=== PATIENT | female | born 1950 | race Hispanic/Latino ===

== ENCOUNTER 2019-03-06 08:01 | Emergency (ER) | payer OTHER ==
--- OUTSIDE RECORDS SUMMARY | 2019-03-06 08:03 | XMS REPORT ---
:1950 [facility] [address]io [address] Martinez [address] [place] [id number] Care Team Providers Name Role Phone Unavailable Unavailable Unavailable Problems This patient has no known problems. Allergies, Adverse Reactions, Alerts This patient has no known allergies or adverse reactions. Medications This patient has no known medications.
[2019-03-06] MEDS ORDERED: FAMOTIDINE 20 MG/2 ML VIAL IV ONE (09:37)
[2019-03-06] MEDS ORDERED: ONDANSETRON 4 MG/2 ML VIAL ONE (09:37)
[2019-03-06] MEDS ORDERED: NA CHLORIDE 0.9% 1,000 ML ONE (09:37)
[2019-03-06] MEDS ORDERED: MORPHINE 2 MG/ML SYR ONE (09:37)
[2019-03-06 09:42] LABS: Absolute Lymphocytes (CBC) 1.4 K/uL (0.7-4.9); Absolute Monocytes 0.6 K/uL (0.1-1.3); Absolute Neutrophil 3.6 K/uL (1.8-8.0); Basophils % 0.6 % (0-1.3); Eosinophils % 1.3 % (0-4.4); Hematocrit 43.2 % (36.0-45.0); Lymphocytes % 24.2 % (15.3-44.8); MPV 9.2 fL (7.6-11.3); Monocytes % 9.9 % (3.3-12.3); RBC Red Blood Cell Count 4.58 M/uL (3.86-4.86)
[2019-03-06 09:44] LABS: Protime INR 0.93
--- NOTE | 2019-03-06 09:53 | EKG ---
Test Date: 2019-03-06 Test Time: 09:27:54 Assistant Purchasing Manager: MANSI MEASUREMENT RESULTS: Intervals: Rate: 69 IA: 136 QRSD: 82 QT: 400 QTc: 428 [place]: P: 34 IA: 136 QRS: 52 T: 50 INTERPRETIVE STATEMENTS: Normal sinus rhythm with sinus arrhythmia Normal ECG Compared to ECG 07/13/2005 16:57:00 No significant changes Electronically Signed On 03-06-19 09:52:19 CDT by Freddy Negron
[2019-03-06 10:03] LABS: ALT/SGPT 21 U/L (12-78); AST/SGOT 14 U/L (15-37); Albumin 4.1 g/dL (3.4-5.0); Alkaline Phosphatase 90 U/L (45-117); BUN Blood Urea Nitrogen 20 mg/dL (7-18); Bicarbonate 25 mmol/L (21-32); Bilirubin Direct 0.1 mg/dL (0-0.2); Bilirubin Total 0.5 mg/dL (0.2-1.0); Glucose Level 102 mg/dL (74-106); Lipase 60 U/L (73-393); Magnesium 2.3 mg/dL (1.8-2.4); NT PRO-BNP 149 pg/mL (<125); Potassium 3.8 mmol/L (3.5-5.1); Protein, Total 6.9 g/dL (6.4-8.2); Sodium Level 144 mmol/L (136-145); Troponin (Emerg Dept Use Only) < 0.02 ng/mL (0.0-0.045)
--- NOTE | 2019-03-06 10:27 | RAD REPORT ---
EXAM DESCRIPTION: Penelope Single View03/06/2019 9:58 am CLINICAL HISTORY: cough COMPARISON: none FINDINGS: The lungs appear clear of acute infiltrate. The heart is normal size IMPRESSION: No acute abnormalities displayed
[2019-03-06 11:12] LABS: Urine Blood NEGATIVE (NEG); Urine Glucose NEGATIVE (NEG); Urine Protein NEGATIVE (NEG); Urine pH 6.5 (5.0-7.0)
--- NOTE | 2019-03-06 11:38 | RAD REPORT ---
EXAM DESCRIPTION: CT - Abdomen Pelvis W Contrast - 03/06/2019 11:18 am CLINICAL HISTORY: Abdominal pain. Left flank pain COMPARISON: None. TECHNIQUE: Computed axial tomography of the abdomen and pelvis was obtained. 100 cc Isovue-300 is ad ministered intravenously. Oral contrast was given. All CT scans are performed using dose optimization technique as appropriate and may include automated exposure control or mA/KV adjustment according to patient size. FINDINGS: The liver, spleen, pancreas, and adrenals appear unremarkable. 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 The appendix is normal caliber. There is no evidence of diverticulitis A 5 centimeter soft tissue structure right lower pelvis Marked anterior subluxation L5 on S1 with obliteration of the disc space. L5 spondylolysis IMPRESSION: 5 centimeter soft tissue structure right lower pelvis almost certainly represents normal uterus. If the patient has had hysterectomy then this would represent a mass and ultrasound would be recommended. Small umbilical hernia Marked anterior subluxation L5 on S1 with obliteration of the disc space. L5 spondylolysis
--- NOTE | 2019-03-06 13:05 | EDPHYS ---
Physician Documentation [facility] Name: Kelley Zapien Age: 68 yrs Sex: Female : 1950 Arrival Date: 03/06/2019 Time: 08:06 Bed 16 Private MD: ED Physician Oleg Martinez HPI: 03/06 09:15 This 68 yrs old Female presents to ER via Ambulatory with complaints of vega Abdominal Pain. 09:13 The patient presents with abdominal pain in the left upper quadrant. Onset: The vega symptoms/episode began/occurred yesterday. The symptoms do not radiate. Associated signs and symptoms: none. The symptoms are described as steady. Modifying factors: The symptoms are alleviated by remaining still, the symptoms are aggravated by movement, pressure, walking. Severity of pain: At its worst the pain was mild moderate in the emergency department the pain is unchanged. The patient has not experienced similar symptoms in the past. Historical: - Allergies: 08:46 No Known Allergies; iw - Home Meds: 08:46 lisinopril 10 mg Oral tab 1 tab once daily [Active]; Dexilant 30 mg oral CpDB 1 cap iw once daily [Active]; - PMHx: 08:46 one kidney; iw - Immunization history:: Adult Immunizations not up to date. - Social history:: Smoking status: Patient/guardian denies using tobacco. - Ebola Screening: : Patient negative for fever greater than or equal to 101.5 degrees Fahrenheit, and additional compatible Ebola Virus Disease symptoms Patient denies exposure to infectious person Patient denies travel to an Ebola-affected area in the 21 days before illness onset No symptoms or risks identified at this time. - Family history:: not pertinent. ROS: 09:13 Constitutional: Negative for fever, chills, and weight loss, Eyes: Negative for injury, vega pain, redness, and discharge, ENT: Negative for injury, pain, and discharge, Neck: Negative for injury, pain, and swelling, Cardiovascular: Negative for chest pain, palpitations, and edema, Respiratory: Negative for shortness of breath, cough, wheezing, and pleuritic chest pain, Back: Negative for injury and pain, : Negative for injury, bleeding, discharge, and swelling, MS/Extremity: Negative for injury and deformity, Skin: Negative for injury, rash, and discoloration, Neuro: Negative for headache, weakness, numbness, tingling, and seizure, Psych: Negative for depression, anxiety, suicide ideation, homicidal ideation, and hallucinations, Allergy/Immunology: Negative for hives, rash, and allergies, Endocrine: Negative for neck swelling, polydipsia, polyuria, polyphagia, and marked weight changes, Hematologic/Lymphatic: Negative for swollen nodes, abnormal bleeding, and unusual bruising. 09:13 Abdomen/GI: Positive for abdominal pain. Exam: 09:13 Constitutional: This is a well developed, well nourished patient who is awake, alert, vega and in no acute distress. Head/Face: Normocephalic, atraumatic. Eyes: Pupils equal round and reactive to light, extra-ocular motions intact. Lids and lashes normal. Conjunctiva and sclera are non-icteric and not injected. Cornea within normal limits. Periorbital areas with no swelling, redness, or edema. ENT: Nares patent. No nasal discharge, no septal abnormalities noted. Tympanic membranes are normal and external auditory canals are clear. Oropharynx with no redness, swelling, or masses, exudates, or evidence of obstruction, uvula midline. Mucous membranes moist. Neck: Trachea midline, no thyromegaly or masses palpated, and no cervical lymphadenopathy. Supple, full range of motion without nuchal rigidity, or vertebral point tenderness. No Meningismus. Chest/axilla: Normal chest wall appearance and motion. Nontender with no deformity. No lesions are appreciated. Cardiovascular: Regular rate and rhythm with a normal S1 and S2. No gallops, murmurs, or rubs. Normal PMI, no JVD. No pulse deficits. Respiratory: Lungs have equal breath sounds bilaterally, clear to auscultation and percussion. No rales, rhonchi or wheezes noted. No increased work of breathing, no retractions or nasal flaring. Back: No spinal tenderness. No costovertebral tenderness. Full range of motion. Female : Normal external genitalia. Skin: Warm, dry with normal turgor. Normal color with no rashes, no lesions, and no evidence of cellulitis. MS/ Extremity: Pulses equal, no cyanosis. Neurovascular intact. Full, normal range of motion. Neuro: Awake and alert, GCS 15, oriented to person, place, time, and situation. Cranial nerves II-XII grossly intact. Motor strength 5/5 in all extremities. Sensory grossly intact. Cerebellar exam normal. Normal gait. Psych: Awake, alert, with orientation to person, place and time. Behavior, mood, and affect are within normal limits. 09:13 Abdomen/GI: Inspection: abdomen appears normal, Bowel sounds: normal, Palpation: mild abdominal tenderness, moderate abdominal tenderness, in the left upper quadrant, Liver: no appreciated palpable abnormalities, Hernia: not appreciated. Vital Signs: 08:46 BP 112 / 84; Pulse 67; Resp 16; Temp 97.9(TE); Pulse Ox 99% on R/A; Weight 57.61 kg; iw Height 4 ft. 11 in. (149.86 cm); Pain 2/10; 09:44 BP 120 / 85; Pulse 61; Resp 18; Pulse Ox 100% on R/A; hj 10:29 BP 100 / 66; Pulse 60; Resp 18; Pulse Ox 100% on R/A; hj 10:57 BP 124 / 78; Pulse 71; Resp 18; Pulse Ox 96% on R/A; hj 12:10 BP 117 / 72; Pulse 58; Resp 18; Pulse Ox 96% on R/A; hj 08:46 Body Mass Index 25.65 (57.61 kg, 149.86 cm) iw MDM: 08:[address] [facility] 09:15 Data reviewed: vital signs, nurses notes, lab test result(s), EKG, radiologic studies, [facility] CT scan, plain films. 03/06 09:11 Order name: Basic Metabolic Panel [facility] 03/06 09:11 Order name: CBC with Diff [facility] 03/06 09:11 Order name: LFT's [facility] 03/06 09:11 Order name: Magnesium [facility] 03/06 09:11 Order name: NT PRO-BNP [facility] 03/06 09:11 Order name: PT-INR [facility] 03/06 09:11 Order name: Troponin (emerg Dept Use Only); Complete Time: 10:27 [facility] 03/06 09:11 Order name: Lipase; Complete Time: 10:27 [facility] 03/06 09:11 Order name: Urine Culture [facility] 03/06 09:14 Order name: Basic Metabolic Panel; Complete Time: 10:27 [facility] 03/06 09:14 Order name: CBC with Automated Diff; Complete Time: 09:48 [facility] 03/06 09:14 Order name: Liver (Hepatic) Function; Complete Time: 10:27 [facility] 03/06 09:14 Order name: Magnesium; Complete Time: 10:27 [facility] 03/06 09:14 Order name: NT PRO-BNP; Complete Time: 10:27 [facility] 03/06 09:11 Order name: XRAY Chest (1 view) [facility] 03/06 09:11 Order name: EKG; Complete Time: 09:15 [facility] 03/06 09:11 Order name: Cardiac monitoring; Complete Time: 09:12 [facility] 03/06 09:11 Order name: EKG - Nurse/Tech; Complete Time: 09:30 [facility] 03/06 09:11 Order name: IV Saline Lock; Complete Time: 09:30 [facility] 03/06 09:11 Order name: Labs collected and sent; Complete Time: 09:30 [facility] 03/06 09:11 Order name: O2 Per Protocol; Complete Time: 09:12 [facility] 03/06 09:11 Order name: CT Abd/Pelvis - PO and IV Contrast [facility] 03/06 09:14 Order name: Protime (+INR); Complete Time: 09:48 [facility] 03/06 10:44 Order name: Urine Dipstick--Ancillary (enter results) 03/06 09:11 Order name: O2 Sat Monitoring; Complete Time: 09:12 [facility] 03/06 09:11 Order name: Urine Dipstick-Ancillary (obtain specimen); Complete Time: 10:39 [facility] Administered Medications: 09:29 Drug: morphine 2 mg Route: IVP; Site: left antecubital; hj 09:46 Follow up: Response: No adverse reaction; Pain is decreased hj 09:29 Drug: Pepcid 20 mg Route: IVP; Site: left antecubital; hj 09:46 Follow up: Response: No adverse reaction hj 09:29 Drug: Zofran 4 mg Route: IVP; Site: left antecubital; hj 09:46 Follow up: Response: No adverse reaction; Nausea is decreased hj 09:30 Drug: NS 0.9% 500 ml Route: IV; Rate: bolus; Site: left antecubital; hj 12:30 Follow up: IV Status: Completed infusion; IV Intake: 500ml hj 09:30 Drug: NS 0.9% 1000 ml Route: IV; Rate: 125 ml/hr; Site: left antecubital; hj 12:11 Follow up: IV Status: Order to discontinue infusion; IV Intake: 700ml 12:09 Not Given (Patient Refused): morphine 2 mg IVP once hj Disposition: 03/06/19 12:07 Discharged to Home. Impression: Abdominal tenderness, Subluxation of L4/L5 lumbar vertebra, Spondylolysis, lumbar region - L5, Low back pain. - Condition is Stable. - Discharge Instructions: Abdominal Pain, Adult, Back Pain, Adult, Musculoskeletal Pain, Abdominal Pain, Adult, [id number]. - Prescriptions for Bentyl 20 mg Oral Tablet - take 1 tablet by ORAL route every 6 hours As needed; 20 tablet. Pepcid 20 mg Oral Tablet - take 1 tablet by ORAL route every 12 hours for 10 days; 20 tablet. Zofran 4 mg Oral Tablet - take 1 tablet by ORAL route every 12 hours As needed; 20 tablet. Tylenol- Codeine #3 300-30 mg Oral Tablet - take 2 tablets by ORAL route every 6 hours As needed; 20 tablet. - Medication Reconciliation Form, Thank You Letter, Antibiotic Education, Prescription Opioid Use form. - Follow up: Private Physician; When: 2 - 3 days; Reason: Recheck today's complaints, Continuance of care, Re-evaluation by your physician. Follow up: Destin Smith; When: 2 - 3 days; Reason: Recheck today's complaints, Continuance of care, Re-evaluation by your physician. Follow up: Gregory Jean MD; When: 2 - 3 days; Reason: Recheck today's complaints, Re-evaluation by your physician. - Problem is new. - Symptoms have improved. Signatures: Dispatcher [employer] EDAL Oleg Martinez MD MD cha Williams, Irene, RN RN Angus Ng RN RN Corrections: (The following items were deleted from the chart) 12:07 12:07 03/06/2019 12:07 Discharged to Home. Impression: Abdominal tenderness; vega Subluxation of L4/L5 lumbar vertebra; Spondylolysis, lumbar region - L5; Low back pain. Condition is Stable. Discharge Instructions: Abdominal Pain, Adult, Abdominal Pain, Adult, [id number], Back Pain, Adult, Musculoskeletal Pain. Prescriptions for Bentyl 20 mg Oral Tablet - take 1 tablet by ORAL route every 6 hours As needed; 20 tablet, Pepcid 20 mg Oral Tablet - take 1 tablet by ORAL route every 12 hours for 10 days; 20 tablet, Zofran 4 mg Oral Tablet - take 1 tablet by ORAL route every 12 hours As needed; 20 tablet. and Forms are Medication Reconciliation Form, Thank You Letter, Antibiotic Education, Prescription Opioid Use. Follow up: Private Physician; When: 2 - 3 days; Reason: Recheck today's complaints, Continuance of care, Re-evaluation by your physician. Follow up: Destin Smith; When: 2 - 3 days; Reason: Recheck today's complaints, Continuance of care, Re-evaluation by your physician. Problem is new. Symptoms have improved. [facility] 12:30 12:07 03/06/2019 12:07 Discharged to Home. Impression: Abdominal tenderness; hj Subluxation of L4/L5 lumbar vertebra; Spondylolysis, lumbar region - L5; Low back pain. Condition is Stable. Discharge Instructions: Abdominal Pain, Adult, Abdominal Pain, Adult, [id number], Back Pain, Adult, Musculoskeletal Pain. Prescriptions for Bentyl 20 mg Oral Tablet - take 1 tablet by ORAL route every 6 hours As needed; 20 tablet, Pepcid 20 mg Oral Tablet - take 1 tablet by ORAL route every 12 hours for 10 days; 20 tablet, Zofran 4 mg Oral Tablet - take 1 tablet by ORAL route every 12 hours As needed; 20 tablet. and Forms are Medication Reconciliation Form, Thank You Letter, Antibiotic Education, Prescription Opioid Use. Follow up: Private Physician; When: 2 - 3 days; Reason: Recheck today's complaints, Continuance of care, Re-evaluation by your physician. Follow up: Destin Smith; When: 2 - 3 days; Reason: Recheck today's complaints, Continuance of care, Re-evaluation by your physician. Follow up: Gregory Jean; When: 2 - 3 days; Reason: Recheck today's complaints, Re-evaluation by your physician. Problem is new. Symptoms have improved. [facility]
--- NOTE | 2019-03-06 13:05 | ER ---
Nurse's Notes [facility] Name: Kelley Zapien Age: 68 yrs Sex: Female : 1950 Arrival Date: 03/06/2019 Time: 08:06 Bed 16 Private MD: Diagnosis: Abdominal tenderness;Subluxation of L4/L5 lumbar vertebra;Spondylolysis, lumbar region-L5;Low back pain Presentation: 03/06 08:42 Presenting complaint: Patient states: has a hernia on left side, was lifting a big pot iw of menudo on Wednesday and felt pain to LUQ, pain radiates to left flank area, described as burning pain. Transition of care: patient was not received from another setting of care. Onset of symptoms was March 04, 2019. Risk Assessment: Do you want to hurt yourself or someone else? Patient reports no desire to harm self or others. Initial Sepsis Screen: Does the patient meet any 2 criteria? No. Patient's initial sepsis screen is negative. Does the patient have a suspected source of infection? No. Patient's initial sepsis screen is negative. Care prior to arrival: None. 08:42 Method Of Arrival: Ambulatory iw 08:42 Acuity: CHARLIE 3 iw Triage Assessment: 08:46 General: Appears in no apparent distress. uncomfortable, Behavior is calm, cooperative, hj appropriate for age. Pain: Complains of pain in abdomen. GI: Reports lower abdominal pain, upper abdominal pain. Historical: - Allergies: 08:46 No Known Allergies; iw - Home Meds: 08:46 lisinopril 10 mg Oral tab 1 tab once daily [Active]; Dexilant 30 mg oral CpDB 1 cap iw once daily [Active]; - PMHx: 08:46 one kidney; iw - Immunization history:: Adult Immunizations not up to date. - Social history:: Smoking status: Patient/guardian denies using tobacco. - Ebola Screening: : Patient negative for fever greater than or equal to 101.5 degrees Fahrenheit, and additional compatible Ebola Virus Disease symptoms Patient denies exposure to infectious person Patient denies travel to an Ebola-affected area in the 21 days before illness onset No symptoms or risks identified at this time. - Family history:: not pertinent. Screenin:46 Abuse screen: Denies threats or abuse. Denies injuries from another. Nutritional hj screening: No deficits noted. Tuberculosis screening: No symptoms or risk factors identified. Fall Risk None identified. Assessment: 08:45 GI: Bowel sounds present X 4 quads. Abd is soft Abdomen is tender to palpation. hj 08:45 General: Appears in no apparent distress. uncomfortable, Behavior is calm, cooperative, hj appropriate for age. Pain: Complains of pain in abdomen. Neuro: Level of Consciousness is awake, alert, obeys commands, Oriented to person, place, time, situation, Appropriate for age. Cardiovascular: Denies chest pain, Pulses. Respiratory: Airway is patent Respiratory effort is even, unlabored, Respiratory pattern is regular, symmetrical. : No signs and/or symptoms were reported regarding the genitourinary system. EENT: No signs and/or symptoms were reported regarding the EENT system. Derm: No signs and/or symptoms reported regarding the dermatologic system. Musculoskeletal: Reports pain in abdomen. 09:15 Reassessment: Patient and/or family updated on plan of care and expected duration. Pain hj level reassessed. Patient is alert, oriented x 3, equal unlabored respirations, skin warm/dry/pink. finished oral contrast; left voice mail to imaging;. 10:28 Reassessment: Patient and/or family updated on plan of care and expected duration. Pain hj level reassessed. Patient is alert, oriented x 3, equal unlabored respirations, skin warm/dry/pink. Patient states feeling better. Patient states symptoms have improved. 11:10 Reassessment: wheeled to CT;. hj 12:10 Reassessment: Patient and/or family updated on plan of care and expected duration. Pain hj level reassessed. Patient is alert, oriented x 3, equal unlabored respirations, skin warm/dry/pink. for D/C;. Vital Signs: 08:46 BP 112 / 84; Pulse 67; Resp 16; Temp 97.9(TE); Pulse Ox 99% on R/A; Weight 57.61 kg; iw Height 4 ft. 11 in. (149.86 cm); Pain 11/06; 09:44 BP 120 / 85; Pulse 61; Resp 18; Pulse Ox 100% on R/A; hj 10:29 BP 100 / 66; Pulse 60; Resp 18; Pulse Ox 100% on R/A; hj 10:57 BP 124 / 78; Pulse 71; Resp 18; Pulse Ox 96% on R/A; hj 12:10 BP 117 / 72; Pulse 58; Resp 18; Pulse Ox 96% on R/A; hj 08:46 Body Mass Index 25.65 (57.61 kg, 149.86 cm) ED Course: 08:06 Patient arrived in ED. tw3 08:35 Angus Ng, RN is Primary Nurse. hj 08:40 Oleg Martinez MD is Attending Physician. vega 08:45 Triage completed. iw 08:45 Patient has correct armband on for positive identification. Bed in low position. Call hj light in reach. Side rails up X 1. 08:46 Arm band placed on. iw 09:20 Initial lab(s) drawn, by me, sent to lab. jb1 09:38 Inserted saline lock: 22 gauge in left antecubital area, using aseptic technique. Blood jb1 collected. 09:57 X-ray completed. Portable x-ray completed in exam room. Patient tolerated procedure jb2 well. 09:59 XRAY Chest (1 view) In Process Unspecified. EDMS 10:43 Urine collected: clean catch specimen, clear, jae colored. jb1 10:52 EKG done, by boiler control technician. reviewed by Oleg Martinez MD. at1 12:06 Destin Smith MD is Referral Physician. vega 12:07 Gregory Jean MD is Referral Physician. vega 12:29 No provider procedures requiring assistance completed. IV discontinued, intact, hj bleeding controlled, No redness/swelling at site. Pressure dressing applied. 13:05 CT Abd/Pelvis - PO and IV Contrast In Process Unspecified. EDMS Administered Medications: 09:29 Drug: morphine 2 mg Route: IVP; Site: left antecubital; hj 09:46 Follow up: Response: No adverse reaction; Pain is decreased hj 09:29 Drug: Pepcid 20 mg Route: IVP; Site: left antecubital; hj 09:46 Follow up: Response: No adverse reaction hj 09:29 Drug: Zofran 4 mg Route: IVP; Site: left antecubital; hj 09:46 Follow up: Response: No adverse reaction; Nausea is decreased hj 09:30 Drug: NS 0.9% 500 ml Route: IV; Rate: bolus; Site: left antecubital; hj 12:30 Follow up: IV Status: Completed infusion; IV Intake: 500ml 09:30 Drug: NS 0.9% 1000 ml Route: IV; Rate: 125 ml/hr; Site: left antecubital; hj 12:11 Follow up: IV Status: Order to discontinue infusion; IV Intake: 700ml hj 12: Not Given (Patient Refused): morphine 2 mg IVP once hj Intake: 12:11 IV: 700ml; Total: 700ml. hj 12:30 IV: 500ml; Total: 1200ml. Outcome: 12:07 Discharge ordered by . vega 12: Discharged to home ambulatory. 12: Condition: stable 12:29 Discharge instructions given to patient, Instructed on discharge instructions, follow up and referral plans. no driving heavy equipment, Demonstrated understanding of instructions, follow-up care, medications, Prescriptions given X 4. 12:30 Patient left the ED. Signatures: Dispatcher [employer] EDMS [place] Nichole jb1 Oleg Martinez MD MD cha Buechter, Jesse jb2 Naima Galdamez, RN RN Gabriela Luque, yeast culture developer EKG Tat1 Angus Ng RN RN hj Wade, Tia tw3
== END 2019-03-06 12:30 | disposition home or self-care (01) ==
LOC: ER 08:01
DX: S33.140A Subluxation of L4/L5 lumbar vertebra, initial encounter (principal); M43.06 Spondylolysis, lumbar region; M54.5 Low back pain
CPT/HCPCS: 96361; 93005; 87088; 85025; 87086; 80048; 36415; 83735; 85610; 80076; 81003; 84484; 83690; 83880; 74177; 71045; 96375; 96374; 99284; Q9967; J2270; J7030; J2405

== ENCOUNTER 2019-06-18 21:55 | Emergency (ER) | payer OTHER ==
--- OUTSIDE RECORDS SUMMARY | 2019-06-18 21:57 | XMS REPORT | Summary of Care ---
:1950 Author Organization [facility] Address [address] [place] [address] Care Team Providers Name Role Phone Unknown, Attending Unavailable Unavailable Joe Tellez MD Primary Care Provider Reason for Referral Radiology Services (Routine) Status Reason Specialty Diagnoses / Referred By Referred To Procedures Contact Contact Closed Diagnostic Diagnoses Screening breast examination Marleny Greer, Radiology Procedures BI SCREENING MAMMOGRAM BILATERAL PA-C [address] [phone] Radiology Services (Routine) Status Reason Specialty Diagnoses / Referred By Referred To Procedures Contact Contact Closed Diagnostic Diagnoses Screening breast examination Marleny Greer, Radiology Procedures BI SCREENING MAMMOGRAM BILATERAL PA-C [address] [phone] Reason for Visit Radiology Services (Routine) Status Reason Specialty Diagnoses / Referred By Referred To Procedures Contact Contact Closed Diagnostic Diagnoses Screening breast examination Marleny Greer, Radiology Procedures BI SCREENING MAMMOGRAM BILATERAL PA-C [address] [phone] Encounter Details Date Type Department Care Team Description 05/16/2019 Hospital Encounter [facility] Marleny Greer, Vianey Aguilar Breast Imaging PA-C [address] [phone] [address] [phone] [phone] Allergies No Known Allergiesdocumented as of this encounter (statuses as of 05/17/2019) Medications Medication Sig Dispensed Refills Start Date End Date Status pantoprazole 40 mg EC Take 40 mg by 0 Active tablet mouth daily. lisinopril 10 mg Take 1 tablet 90 tablet 2 03/16/2019 Active tabletIndications: by mouth daily. Essential hypertension busPIRone 10 mg Take 1 tablet 180 tablet 2 03/16/2019 Active tabletIndications: by mouth 2 Anxiety (two) times daily. triamcinolone 0.5 % Apply to 30 g 1 03/16/2019 Active creamIndications: area(s) 3 Rash (three) times daily. Blood Pressure Use as 1 Kit 0 05/09/2019 Active Monitor directed; KitIndications: ICD-10 code I10 Essential hypertension Nitrofurantoin&Nit. Take 1 capsule 14 capsule 0 05/09/2019 05/16/2019 Macrocryst 100 mg by mouth 2 capsuleIndications: (two) times Dysuria, Urgency of daily for 7 micturition, Left days. flank pain documented as of this encounter (statuses as of 05/17/2019) Active Problems Problem Noted Date Atopic dermatitis 03/19/2019 Osteoporosis 06/20/2018 Spondylosis, lumbosacral 04/27/2018 Low back pain radiating to lower extremity 04/27/2018 Spondylolisthesis at L5-S1 level 04/27/2018 Spondylolysis of lumbar region 04/27/2018 Pelvic pain 04/27/2018 Fluid in endometrial cavity 04/27/2018 Tricompartment osteoarthritis of right knee 01/24/2018 Chronic pain of right knee 01/24/2018 Hypercholesterolemia 01/17/2018 Left sided chest pain 01/10/2018 Breast pain, left 01/10/2018 Unilateral congenital absence of kidney 05/03/2015 Blind left eye Hypertension Prediabetes documented as of this encounter (statuses as of 05/17/2019) Resolved Problems Problem Noted Date Resolved Date Anxiety and depression 05/03/2015 01/10/2018 Abnormality of gait 06/02/2006 01/10/2018 Chest pain 06/02/2006 05/03/2015 Overview: ICD10 Diagnosis Term [employer] Utility documented as of this encounter (statuses as of 05/17/2019) Immunizations Name Administration Dates Next Due Influenza Virus Vaccine 10/14/2007 Pneumococcal 13 Conjugate, PCV13 (Prevnar 13) 06/09/2018 Tdap 05/02/2015 documented as of this encounter Social History Tobacco Use Types Packs/Day Years Used Date Light Tobacco Smoker Smokeless Tobacco: Never Used Alcohol Use Drinks/Week oz/Week Comments No 0 Standard drinks or equivalent 0.0 Sex Assigned at Date Recorded Not on file Job Start Date Occupation Industry Not on file Not on file Not on file Travel History Travel Start Travel End No recent travel history available. documented as of this encounter Last Filed Vital Signs Not on filedocumented in this encounter Plan of Treatment Date Type Specialty Care Team Description 03/25/2020 Office Visit Obstetrics & Gynecology Marleny Greer PA-C [address] [place] [phone] Health Maintenance Due Date Last Done Comments Zoster Recombinant Vaccine (SHINGRIX) (1 2001 of 2) Medicare Wellness Visit 2016 MAMMOGRAM 01/19/2019 01/19/2018, 05/14/2015 INFLUENZA VACCINE (#1) 2019 10/14/2007 PNEUMOCOCCAL VACCINES 65+ (2 of 2 - 06/09/2019 06/09/2018 PPSV23) LUNG CANCER SCREEN: Recommended for age 0906/16/2019 06/16/2018 55-80 with 30 + pack year history DTaP,Tdap,and Td Vaccines (2 - Td) 05/02/2025 05/02/2015 COLONOSCOPY 02/19/2028 02/18/2018 HEPATITIS C (HCV) SCREEN Completed 06/09/2018 Osteoporosis Screening Completed 06/16/2018 documented as of this encounter Procedures Procedure Name Priority Date/Time Associated Diagnosis Comments BI SCREENING Routine 05/16/2019 8:49 Screening breast Results for this MAMMOGRAM BILATERAL AM CDT examination procedure are in the results section. CONSENT/REFUSAL FOR Routine 05/16/2019 8:14 DIAGNOSIS AND AM CDT TREATMENT CONSENT/REFUSAL FOR Routine 05/16/2019 8:13 DIAGNOSIS AND AM CDT TREATMENT ASSIGNMENT OF Routine 05/16/2019 8:13 BENEFITS AM CDT documented in this encounter Results BI SCREENING MAMMOGRAM BILATERAL (05/16/2019 8:49 AM CDT) Specimen Narrative Performed At Examination: PACS BI SCREENING MAMMOGRAM BILATERAL History: Patient is 68 year old and is seen for:Routine mammogram screening. Hormone history includes other. No relevant surgical history has been documented for this patient. No relevant medical history has been documented for this patient. Computer-aided detection (CAD) utilized. Comparisons: 05/14/2015 DIGITAL MAMMOGRAM, SCREENING (No Change) Findings: The breasts have scattered areas of fibroglandular density. There is no evidence of suspicious masses, calcifications, or other abnormal findings. Impression: No signs of malignancy. Recommendation: Annual mammographic follow-up - Bilateral BI-RADS Category: Both 2 - Benign Performing Organization Address City/State/Zipcode Phone Number PACS documented in this encounter Visit Diagnoses Diagnosis Screening breast examination Other screening breast examination documented in this encounter Insurance Payer Benefit Plan / Subscriber ID Effective Phone Address Type Group Dates [facility] [id number] 2017-Pres Medicare HEALTHCARE - HEALTHCARE ent Adv HMO MANAGED DUAL COMPLETE MEDICARE HMO [facility] MEDICAID OF xxxxxxxxx 2018-Pres [phone] [place] ent [id number] [place] [address] documented as of this encounter
--- OUTSIDE RECORDS SUMMARY | 2019-06-18 21:57 | XMS REPORT | Summary of Care ---
:1950 Author Organization [facility] Address [address] [place] [address] Care Team Providers Name Role Phone Unknown, Attending Unavailable Unavailable Joe Tellez MD Primary Care Provider Reason for Visit Reason Comments Results Encounter Details Date Type Department Care Team Description 05/17/2019 Telephone [facility] Women's Marleny Greer PA-C Results Healthcare- [address], [address] [place] [address] [place] [phone] Allergies No Known Allergiesdocumented as of this encounter (statuses as of 05/17/2019) Medications Medication Sig Dispensed Refills Start Date End Date Status pantoprazole 40 mg EC Take 40 mg by 0 Active tablet mouth daily. lisinopril 10 mg Take 1 tablet by 90 tablet 2 03/16/2019 Active tabletIndications: mouth daily. Essential hypertension busPIRone 10 mg Take 1 tablet by 180 tablet 2 03/16/2019 Active tabletIndications: mouth 2 (two) Anxiety times daily. triamcinolone 0.5 % Apply to 30 g 1 03/16/2019 Active creamIndications: Rash area(s) 3 (three) times daily. Blood Pressure Monitor Use as directed; 1 Kit 0 05/09/2019 Active KitIndications: ICD-10 code I10 Essential hypertension documented as of this encounter (statuses as [...] pain 06/02/2006 05/03/2015 Overview: ICD10 Diagnosis Term [employer] Utility documented as of this encounter (statuses [...] Visit Obstetrics & Gynecology Marleny Greer PA-C [address] [place] [phone] Health Maintenance Due Date Last Done Comments Zoster Recombinant Vaccine (SHINGRIX) 2001 (1 of 2) Medicare Wellness Visit 2016 INFLUENZA VACCINE (#1) 2019 10/14/2007 PNEUMOCOCCAL VACCINES 65+ (2 of 2 - 06/09/2019 06/09/2018 PPSV23) LUNG CANCER SCREEN: Recommended for 06/16/2019 06/16/2018 age 55-80 with 30 + pack year history MAMMOGRAM 05/16/2020 05/16/2019, 01/19/2018, 05/14/2015 DTaP,Tdap,and Td Vaccines (2 - Td) 05/02/2025 05/02/2015 COLONOSCOPY 02/19/2028 02/18/2018 HEPATITIS C (HCV) SCREEN Completed 06/09/2018 Osteoporosis Screening Completed 06/16/2018 documented as of this encounter Results Not on filedocumented in this encounter Insurance Payer Benefit Plan / Subscriber ID Effective Phone Address Type Group Dates [facility] [id number] 2017-Pres Medicare HEALTHCARE - HEALTHCARE ent Adv HMO MANAGED DUAL COMPLETE MEDICARE HMO [facility] MEDICAID OF xxxxxxxxx 2018-Pres [phone] Medicaid [place] ent [id number] [place] [address] documented as of this encounter
--- OUTSIDE RECORDS SUMMARY | 2019-06-18 21:57 | XMS REPORT | Summary of Care ---
:1950 Author Organization [facility] Address [address] [place] [address] Care Team Providers Name Role Phone Unknown, Attending Unavailable Unavailable Joe Tellez MD Primary Care Provider Reason for Visit Reason Comments DYSURIA Pain abdomen, lower back, and legs Urgency Headache Encounter Details Date Type Department Care Team Description 05/09/2019 Office Visit [facility] Family Joe Tellez Dysuria ( Primary Dx); Medicine - Huong Hansen MD Urgency of micturition; [address] [place] [address] [address] [place] [address] Left flank pain; [place], [place] Essential hypertension; [phone] Increased frequency of headaches [phone] Allergies No Known Allergiesdocumented as of this encounter (statuses as of 05/09/2019) Medications Medication Sig Dispensed Refills Start Date [...] creamIndications: Rash area(s) 3 (three) times daily. Nitrofurantoin&Nit. Take 1 capsule 14 capsule 0 05/09/2019 05/16/2019 Active Macrocryst 100 mg by mouth 2 capsuleIndications: (two) times Dysuria, Urgency of daily for 7 micturition, Left days. flank pain Blood Pressure Monitor Use as 1 Kit 0 05/09/2019 Active KitIndications: directed; Essential hypertension ICD-10 code I10 documented as of this encounter (statuses as of 05/09/2019) Active Problems Problem Noted Date Atopic dermatitis [...] as of this encounter (statuses as of 05/09/2019) Resolved Problems Problem Noted Date Resolved Date Anxiety and depression 05/03/2015 01/10/2018 Abnormality of gait 06/02/2006 01/10/2018 Chest pain 06/02/2006 05/03/2015 Overview: ICD10 Diagnosis Term Collateral Clerk Utility documented as of this encounter (statuses as of 05/09/2019) Immunizations Name Administration Dates Next Due Influenza [...] of this encounter Last Filed Vital Signs Vital Sign Reading Time Taken Comments Blood Pressure 109/78 05/09/2019 10:49 AM CDT Pulse 71 05/09/2019 10:49 AM CDT Temperature 36.7 C (98.1 F) 05/09/2019 10:49 AM CDT Respiratory Rate 16 05/09/2019 10:49 AM CDT Oxygen Saturation 98% 05/09/2019 10:49 AM CDT Inhaled Oxygen Concentration - - Weight 58.1 kg (128 lb) 05/09/2019 10:49 AM CDT Height 146.1 cm (4' 9.5") 05/09/2019 10:49 AM CDT Body Mass Index 27.22 05/09/2019 10:49 AM CDT documented in this encounter Patient Instructions Patient InstructionsJoe Tellez MD - 05/09/2019 10:15 AM CDT Infeccin De La Vejiga,Shelia [Bladder Infection: Female, Adult] Judit infeccin de la vejiga (cistitis [cystitis - UTI]) suele provocar constantes deseos de orinar y ardor al orinar. Es posible que la orina se roselia turbia u oscura, o que tenga olor veronica. Puede colleen dolor en la parte baja del abdomen. Judit infeccin de la vejiga se produce cuando las bacterias del magaly vaginal ingresan al orificio donde desemboca la vejiga (la uretra [urethra]) . Puede ocurrir despus de colleen tenido relaciones sexuales, por usar ropas muy ajustadas, por deshidratacin yotros factores. Cuidados En [place] Penny abundante lquido (al menos, entre 6 y 8 vasos por da, excepto que le hayan indicado limitar los lquidos por otras razones mdicas). Eso monika que el medicamento ingrese mejor al sistema urinario y arrastrar las bacterias fuera de banuelos cuerpo. Evite tener relaciones sexuales hasta que los sntomas hayan desaparecido. No consuma cafena, alcohol ni comidas muy condimentadas, ya que pueden irritar la vejiga. Judit infeccin de la vejiga (bladder infection) se trata con antibiticos ( antibiotics). Tambin es posible que le receten Pyridum (nombre genrico: fenazopiridina [phenazopyridine]) para aliviarel ardor. Chen medicamento monika que banuelos orina sea de color naranja brillante. Es posible que nelson orina de color naranja le manche la ropa. Puede usar un protector diario o judit toalla femenina para proteger la ropa. Evite Futuras Infecciones Despus de evacuar el intestino, siempre lmpiese con un movimiento de adelante hacia atrs. Mantenga la sunil genital limpia y seca. Penny mucho lquidos todos los rios para evitar la deshidratacin ( dehydration). Ambos integrantes de la sly deben lavarse antes del acto sexual. Orine jena despus del acto sexual para limpiar la vejiga. Use ropa interior de algodn y pantimedias con recubrimiento de algodn. Evite usar pantalones muy ajustados. Si est tomando pldoras anticonceptivas y tiene frecuentes infecciones de vejiga, hblelo consu mdico. Visita De Control Visite a banuelos mdico si no jewell desparecido todos los sntomas despus de divya rios de tratamiento. Busque Prontamente Atencin Mdica si algo de lo siguiente ocurre: Fiebre de 100.4F (38C) o ms josé, o shelby le haya indicado banuelos proveedor de atencin mdica. No hay mejora despus de divya rios de tratamiento. Mayor dolor en la espalda o el abdomen. Vmito persistente (no puede mantener el medicamento en el estmago). Debilidad, mareo o desmayo. Secrecin vaginal. Dolor, enrojecimiento o hinchazn en los labios vaginales (sunil exterior de la vagina). Date Last Reviewed: 01/02/[id number] [facility] [employer] [place] [address], [place] [address]. Todos los derechos reservados. Esta informacin no pretende sustituir la atencin mdica profesional. Slo banuelos mdico puede diagnosticar y tratar un problema de lisa. documented in this encounter Progress Notes Joe Tellez MD - 05/09/2019 10:15 AM CDT Cc: Chief Complaint Patient presents with DYSURIA, LEFT FLANK PAIN, URGENCY HPI Kelley Hernandez is a 68 year old female who presents today for UTI symptoms. The patient is Wolof-speaking so a certified genetic counsellor through the [employer] system was utilized for today's visit. URINARY TRACT INFECTION Patient presents to clinic today with complaints of dysuria, flank pain and urgency. This is a new problem. The problem has been gradually worsening since onset. Her pain is at a severity of 7/10. The pain is moderate. Patient describes pain as burning. There has been no fever. Obstructive symptoms include incomplete emptying. Pertinent negatives include no abdominal pain, chills, fever, flank pain,nausea or vomiting. She has tried antibiotics and increased fluids (clindamycin) for the symptoms.The treatment provided no relief. Her sexual activity is non-contributory to the current illness. Her past medical history is significant for hypertension (she requests a bp monitor because has been having headaches lately and would like to check her bp). Allergies Kelley has No Known Allergies. Medications Outpatient Medications Prior to Visit Medication Sig Dispense Refill busPIRone 10 mg tablet Take 1 tablet by mouth 2 (two) times daily. 180 tablet 2 lisinopril 10 mg tablet Take 1 tablet by mouth daily. 90 tablet 2 triamcinolone 0.5 % cream Apply to area(s) 3 (three) times daily. 30 g 1 pantoprazole 40 mg EC tablet Take 40 mg by mouth daily. No facility-administered medications prior to visit. Histories Past Medical History: Diagnosis Date Anxiety Arthritis Atopic dermatitis 03/19/2019 Blind left eye Colon polyps 02/18/2018 Congenital absence of ovary, unilateral Depression Esophageal reflux Gastritis Hypercholesterolemia 01/17/2018 Hypertension Low back pain radiating to lower extremity 04/27/2018 Migraines Osteoporosis 06/20/2018 Prediabetes Spondylolisthesis at L5-S1 level 04/27/2018 Spondylolysis of lumbar region 04/27/2018 Spondylosis, lumbosacral 04/27/2018 Unilateral agenesis of kidney Past Surgical History: Procedure Laterality Date BREAST BIOPSY Left COLONOSCOPY 02/18/2018 Dr. Vivar, + polyps ESOPHAGOGASTRODUODENOSCOPY 02/10/2018 Dr. Vivar TUBAL LIGATION UPPER GI ENDOSCOPY Social History Socioeconomic History Marital status: Single Spouse name: Not on file Number of children: 3 Years of education: Not on file Highest education level: Not on file Occupational History Occupation: none Social Needs Financial resource strain: Not on file Food insecurity: Worry: Not on file Inability: Not on file Transportation needs: Medical: Not on file Non-medical: Not on file Tobacco Use Smoking status: Light Tobacco Smoker Smokeless tobacco: Never Used Substance and Sexual Activity Alcohol use: No Alcohol/week: 0.0 oz Drug use: No Sexual activity: Not Currently Lifestyle Physical activity: Days per week: Not on file Minutes per session: Not on file Stress: Not on file Relationships Social connections: Talks on phone: Not on file Gets together: Not on file Attends episcopalian service: Not on file Active member of club or organization: Not on file Attends meetings of clubs or organizations: Not on file Relationship status: Not on file Intimate partner violence: Fear of current or ex partner: Not on file Emotionally abused: Not on file Physically abused: Not on file Forced sexual activity: Not on file Other Topics Concern Service Not Asked Blood Transfusions No Caffeine Concern Not Asked Occupational Exposure Not Asked Hobby Hazards Not Asked Sleep Concern Not Asked Stress Concern Not Asked Weight Concern Not Asked Special Diet Not Asked Back Care Not Asked Exercise Not Asked Bike Helmet Not Asked Seat Belt Not Asked Self-Exams Not Asked Social History Narrative No domestic violence or abuse Family History Problem Relation Age of Onset Other - see comments Mother kidney Neurological Father Asthma Sister Diabetes Sister Arthritis Paternal Aunt Cancer Paternal Grandfather Diabetes Sister defects NoFHx Breast Cancer NoFHx Colon Cancer NoFHx Ovarian Cancer NoFHx Uterine Cancer NoFHx Depression NoFHx Genetic NoFHx Heart NoFHx High cholesterol NoFHx Hypertension NoFHx Mental retardation NoFHx Osteoporosis NoFHx Psychiatry NoFHx Review of Systems Constitutional: Negative for chills, diaphoresis and fever. HENT: Negative. Negative for mouth sores, postnasal drip and sinus pressure. Eyes: Negative for discharge. Respiratory: Negative. Cardiovascular: Negative. Gastrointestinal: Negative for abdominal pain, nausea and vomiting. Genitourinary: Positive for dysuria, urgency, frequency and incomplete emptying. Negative for hematuria and flank pain. Musculoskeletal: Negative. Skin: Negative for rash. Neurological: Positive for headaches. Psychiatric/Behavioral: Negative. Endocrine: Endocrine negative Vital Signs BP 109/78 (BP Location: Left arm, Patient Position: Sitting, BP CUFF SIZE: Adult Medium) | Pulse 71 | Temp 36.7 C (98.1 F) (Tympanic) | Resp 16 | Ht 4' 9.5" (1.461 m) | Wt 128 lb (58.1 kg) | SpO2 98% | BMI 27.22 kg/m Physical Exam Constitutional: She is oriented to person, place, and time. She appears well- developed and well-nourished. No distress. HENT: Mouth/Throat: Mucous membranes are normal. Cardiovascular: Normal rate, regular rhythm and normal heart sounds. Pulmonary/Chest: Effort normal and breath sounds normal. Abdominal: Soft. She exhibits no distension and no mass. There is tenderness in the suprapubic area.There is no rigidity, no rebound, no guarding and no CVA tenderness. Neurological: She is alert and oriented to person, place, and time. She displays normal reflexes. Nocranial nerve deficit or sensory deficit. She exhibits normal muscle tone. Coordination normal. Grossly non-focal Skin: Skin is warm and dry. Nursing note and vitals reviewed. POCT UA POCT U SP GRAV (mg/dl) Date Value 05/09/2019 1.015 POCT PH U (mg/dl) Date Value 05/09/2019 6 POCT U LEUK EST (no units) Date Value 05/09/2019 trace POCT U NIT (no units) Date Value 05/09/2019 negative POCT U PROT (no units) Date Value 05/09/2019 negative POCT U GLU (no units) Date Value 05/09/2019 negative POCT U KETONE (no units) Date Value 05/09/2019 negative POCT U UROBILI (mg/dl) Date Value 05/09/2019 normal POCT U BILI (no units) Date Value 05/09/2019 negative POCT U BLD (no units) Date Value 05/09/2019 moderate POCT U COLOR (no units) Date Value 05/09/2019 yellow POCT U APPEAR (no units) Date Value 05/09/2019 clear Assessment/Plan Dysuria, Urgency of micturition, Left flank pain Will cover her with an antibiotic given her symptoms and UA results are consistent with UTI. Increase fluids, namely water. UCx is pending. Discussed ways of decreasing the risk of future UTIs including wiping from front to back, increasing intake of water, emptying the bladder at regular intervals/avoiding holding urine for prolonged periods of time, and urinating after sexual intercourse. - POCT URINALYSIS W SPECIFIC GRAVITY - URINE CULTURE - Nitrofurantoin&Nit. Macrocryst 100 mg capsule; Take 1 capsule by mouth 2 (two) times dailyfor 7 days. Essential hypertension, Increased frequency of headaches Bp is at goal. Continue current medication(s). Low sodium diet/DASH diet. Exercise regularly. The patient was instructed to self monitor her blood pressure once daily varying the times when it is checked and to bring the record of readings to each office visit. The patient should follow-up soonerif the blood pressure is trending >/=150/90. She was instructed to keep a DE DIOS diary and she will bring it to her next visit. Recommended medications for head pain: Tylenol. Strong ER precautions given for severe head pain, dizziness, focal weakness, visual changes, fever, neck pain/stiffness, n/v, etc. - Blood Pressure Monitor Kit; Use as directed; ICD-10 code I10 Plan of care, desired health behaviors, goals, Ddx, and any prescribed medications were discussed with the patient. This visit did not involve counseling and coordination that comprised more than 50% of the visit time. Education resources and self-management tools were provided and reviewed with the AVS. Patient/guardian/family verbalized understanding and agrees to the plan of care. Barriers tocare: None. Ability to manage care: Good. Advanced care planning (living will) information was not given/offered to the patient to review for discussion at a future visit. If applicable, the [facility] database was accessed to review any controlled substance prescription claims data. If the patient is taking prescribed medications, the [employer] prescription claims data in [employer] was reviewed to assess patient compliance with the medication treatment plan. Follow-up: Return if symptoms worsen or fail to improve. Return for routine care as scheduled or previously advised. Scribe Attestation I, Joie Haile , am scribing for, and in the presence of, Joe Tellez MD who performed the services described here-in. Joie Haile, May 09, 2019, 11:13 AM Physician Attestation I, Joe Tellez MD, personally performed the services described in this documentation , as scribed by, Joie Haile in my presence and it is both accurate and complete. Joe Tellez MD May 09, 2019, 11:13 AM documented in this encounter Plan of Treatment Date Type Specialty Care Team Description 05/12/2019 Appointment Radiology Marleny Greer PA-C [address] [place] [address] [phone] 03/25/2020 Office Visit Obstetrics & Gynecology Marleny Greer PA-C [address] [place] [address] [phone] Name Type Priority Associated Diagnoses Date/Time URINE CULTURE LAB Routine Dysuria 05/09/2019 11:12 AM CDT Urgency of micturition Name Type Priority Associated Diagnoses Order Schedule URINE CULTURE LAB Routine Dysuria 1 Occurrences starting Urgency of micturition 05/09/2019 until 2019 Health Maintenance Due Date Last Done Comments Zoster Recombinant Vaccine (SHINGRIX) (1 2001 of 2) Medicare Wellness Visit 2016 MAMMOGRAM 01/19/2019 01/19/2018, 05/14/2015 INFLUENZA VACCINE 05/28/2019 10/14/2007 PNEUMOCOCCAL VACCINES 65+ (2 of 2 - 06/09/2019 06/09/2018 PPSV23) LUNG CANCER SCREEN: Recommended for age 0906/16/2019 06/16/2018 55-80 with 30 + pack year history DTaP,Tdap,and Td Vaccines (2 - Td) 05/02/2025 05/02/2015 COLONOSCOPY 02/19/2028 02/18/2018 HEPATITIS C (HCV) SCREEN Completed 06/09/2018 Osteoporosis Screening Completed 06/16/2018 documented as of this encounter Procedures Procedure Name Priority Date/Time Associated Diagnosis Comments POCT URINALYSIS Routine 05/09/2019 11:04 AM Dysuria Results for this CDT Urgency of procedure are in micturition the results section. documented in this encounter Results POCT URINALYSIS W SPECIFIC GRAVITY (05/09/2019 11:04 AM CDT) POCT U SP GRAV 1.015 1.005 - 1.025 mg/dl POCT PH U 6 5 - 8 mg/dl POCT U LEUK EST trace Negative - Negative POCT U NIT negative Negative - Negative POCT U PROT negative Negative - Negative POCT U GLU negative Negative - Negative POCT U KETONE negative Negative - Negative POCT U UROBILI normal 0.2 - 1 mg/dl POCT U BILI negative Negative - Negative POCT U BLD moderate Negative - Negative POCT U COLOR yellow POCT U APPEAR clear Specimen Urine documented in this encounter Visit Diagnoses Diagnosis Dysuria - Primary Urgency of micturition Left flank pain Abdominal pain, unspecified site Essential hypertension Unspecified essential hypertension Increased frequency of headaches Headache documented in this encounter Insurance Payer Benefit Plan / Subscriber ID Effective Phone Address Type Group Dates [facility] [id number] 2017-Pres Medicare HEALTHCARE - HEALTHCARE ent Adv HMO MANAGED DUAL COMPLETE MEDICARE HMO [facility] MEDICAID OF xxxxxxxxx 2018-Pres [phone] [place] ent [id number] [place] [address] documented as of this encounter
--- OUTSIDE RECORDS SUMMARY | 2019-06-18 21:57 | XMS REPORT | Summary of Care ---
:1950 Author Organization [facility] Address [address] [place] [address] Care Team Providers Name Role Phone Unknown, Attending Unavailable Unavailable Joe Tellez MD Primary Care Provider Reason for Visit Reason Comments DYSURIA Pain abdomen, lower back, and legs Urgency Headache Encounter Details Date Type Department Care Team Description 05/09/2019 Office Visit [facility] Family Joe Tellez Dysuria ( Primary Dx); Medicine - Huong Hansen MD Urgency of micturition; [address] [place] [address] [place] [address] Left flank pain; [place], [place] Essential hypertension; [phone] Increased frequency of headaches [phone] Allergies No Known Allergiesdocumented as of this [...] pain 06/02/2006 05/03/2015 Overview: ICD10 Diagnosis Term Filament Coil Winder Utility documented as of this encounter (statuses [...] por deshidratacin yotros factores. Cuidados En [place] Penny abundante lquido (al menos, entre 6 [...] exterior de la vagina). Date Last Reviewed: 01/02/[id number] [facility] [employer]. [address] [place] [address], [place] [address]. Todos los derechos reservados. Esta informacin no [...] today for UTI symptoms. The patient is Irish-speaking so a certified network admin through the [employer] system was utilized for today's visit. URINARY [...] file Gets together: Not on file Attends orthodox service: Not on file Active member of [...] at a future visit. If applicable, the [facility] database was accessed to review any controlled substance prescription claims data. If the patient is taking prescribed medications, the [employer] prescription claims data in [facility] was reviewed to assess patient compliance with [...] Description 05/12/2019 Appointment Radiology Marleny Greer PA-C [address] [place] [address] [phone] 03/25/2020 Office Visit Obstetrics & Gynecology Marleny Greer PA-C [address] [place] [address] [phone] Name Type Priority Associated Diagnoses Date/Time URINE [...] ID Effective Phone Address Type Group Dates [facility] [id number] 2017-Pres Medicare HEALTHCARE - HEALTHCARE ent Adv HMO MANAGED DUAL COMPLETE MEDICARE HMO [facility] MEDICAID OF xxxxxxxxx 2018-Pres [phone] [place] ent [id number] [place] [address] documented as of this encounter
--- OUTSIDE RECORDS SUMMARY | 2019-06-18 21:57 | XMS REPORT ---
:1950 [facility] Address [facility] [address] [place] [address] Care Team Providers Name Role Phone Unavailable Unavailable Unavailable Problems This patient has no known problems. Allergies, Adverse Reactions, Alerts This patient has no known allergies or adverse reactions. Medications This patient has no known medications.
--- OUTSIDE RECORDS SUMMARY | 2019-06-18 21:58 | XMS REPORT | Summary of Care ---
:1950 Author Organization [facility] Address [address] [place] [address] Care Team Providers Name Role Phone Unknown, Attending Unavailable Unavailable Joe Tellez MD Primary Care Provider Reason for Visit Reason Comments Notification Health Maintenance Encounter Details Date Type Department Care Team Description 06/12/2019 Telephone [facility] [employer] [facility] Joe Tellez Notification ( Health and Outreach A, Maintenance) [address] [place] [phone] Allergies No Known Allergiesdocumented as of this encounter (statuses as of 06/12/2019) Medications Medication Sig Dispensed Refills Start Date [...] as of this encounter (statuses as of 06/12/2019) Active Problems Problem Noted Date Atopic dermatitis [...] as of this encounter (statuses as of 06/12/2019) Resolved Problems Problem Noted Date Resolved Date Anxiety and depression 05/03/2015 01/10/2018 Abnormality of gait 06/02/2006 01/10/2018 Chest pain 06/02/2006 05/03/2015 Overview: ICD10 Diagnosis Term Can Top Setter Utility documented as of this encounter (statuses as of 06/12/2019) Immunizations Name Administration Dates Next Due Influenza [...] Visit Obstetrics & Gynecology Marleny Greer PA-C [address] [place] [phone] Health Maintenance Due Date Last Done [...] Subscriber ID Effective Phone Address Type Group [facility] [id number] 2017-Pres Medicare HEALTHCARE - HEALTHCARE ent Adv HMO MANAGED DUAL COMPLETE MEDICARE HMO [facility] MEDICAID OF xxxxxxxxx 2018-Pres [phone] Medicaid [place] ent [id number] [place] [address] documented as of this encounter
[2019-06-18 22:30] LABS: Absolute Lymphocytes (CBC) 2.5 K/uL (0.7-4.9); Hematocrit 42.5 % (36.0-45.0); Lymphocytes % 29.5 % (15.3-44.8); MPV 9.7 fL (7.6-11.3); RBC Red Blood Cell Count 4.51 M/uL (3.86-4.86)
[2019-06-18 22:31] LABS: Protime INR 0.91
[2019-06-18] MEDS ORDERED: ALBUTEROL 2.5 MG/3 ML NEB SOL ONE (22:39)
[2019-06-18 22:56] LABS: ALT/SGPT 23 U/L (12-78); AST/SGOT 20 U/L (15-37); Albumin 4.1 g/dL (3.4-5.0); Alkaline Phosphatase 107 U/L (45-117); BUN Blood Urea Nitrogen 22 mg/dL (7-18); Bicarbonate 22 mmol/L (21-32); Bilirubin Direct 0.1 mg/dL (0-0.2); Bilirubin Total 0.4 mg/dL (0.2-1.0); Glucose Level 122 mg/dL (74-106); Magnesium 2.2 mg/dL (1.8-2.4); NT PRO-BNP 75 pg/mL (<125); Potassium 3.9 mmol/L (3.5-5.1); Protein, Total 7.5 g/dL (6.4-8.2); Sodium Level 142 mmol/L (136-145); Troponin (Emerg Dept Use Only) < 0.02 ng/mL (0.0-0.045)
--- NOTE | 2019-06-19 02:18 | ER ---
Nurse's Notes [facility] Name: Kelley Zapien Age: 68 yrs Sex: Female : 1950 Arrival Date: 06/18/2019 Time: 21:57 Bed 4 Private MD: Diagnosis: Exercise induced bronchospasm;Sprain of ligaments of cervical spine Presentation: 06/18 22:02 Presenting complaint: Patient states: I have been having neck pain for about three days la1 and today the pain is worse now and I am also having shortness of breath and chest pain. Transition of care: patient was not received from another setting of care. Onset of symptoms was June 18, 2019. Risk Assessment: Do you want to hurt yourself or someone else? Patient reports no desire to harm self or others. Initial Sepsis Screen: Does the patient meet any 2 criteria? No. Patient's initial sepsis screen is negative. Does the patient have a suspected source of infection? No. Patient's initial sepsis screen is negative. Care prior to arrival: None. 22:02 Method Of Arrival: Wheelchair la1 22:02 Acuity: CHARLIE 3 la1 Triage Assessment: 06/19 01:09 General: Appears in no apparent distress. comfortable. Respiratory: Onset: The ak1 symptoms/episode began/occurred this morning, the patient has mild shortness of breath. Historical: - Allergies: 06/18 22:05 No Known Allergies; la1 - Home Meds: 06/19 01:10 Dexilant 30 mg Oral CpDB 1 cap once daily [Active]; lisinopril 10 mg Oral tab 1 tab ak1 once daily [Active]; - PMHx: 06/18 22:05 one kidney; Hypertension; la1 - Immunization history:: Adult Immunizations up to date. - Social history:: Smoking status: Patient/guardian denies using tobacco. - Ebola Screening: : No symptoms or risks identified at this time. Screenin:06 Fall Risk None identified. ak1 22:42 Abuse screen: Denies threats or abuse. Denies injuries from another. Nutritional rr5 screening: No deficits noted. Tuberculosis screening: No symptoms or risk factors identified. Assessment: 22:06 General: Appears in no apparent distress. uncomfortable, Behavior is calm, cooperative. ak1 Pain: Complains of pain in neck pain. Neuro: Level of Consciousness is awake, alert, obeys commands, Oriented to person, place, time, situation, Appropriate for age Reuse Technician are equal bilaterally Moves all extremities. Speech is normal. Cardiovascular: Reports pt reports pain to the back of her neck that "takes her breath away" Rhythm is regular. Respiratory: Airway is patent Respiratory effort is even, unlabored. GI: No signs and/or symptoms were reported involving the gastrointestinal system. : No signs and/or symptoms were reported regarding the genitourinary system. EENT: No signs and/or symptoms were reported regarding the EENT system. Derm: No signs and/or symptoms reported regarding the dermatologic system. Musculoskeletal: pain in the back of her neck after exercising 3 days HARD[employer]. 22:06 Respiratory: Reports shortness of breath Breath sounds are clear. rr5 22:58 Reassessment: Patient appears in no apparent distress at this time. Patient and/or rr5 family updated on plan of care and expected duration. Pain level reassessed. Patient is alert, oriented x 3, equal unlabored respirations, skin warm/dry/pink. awaiting for results. Patient states feeling better. Patient states symptoms have improved. 06/19 00:00 Reassessment: Patient appears in no apparent distress at this time. Patient is alert, rr5 oriented x 3, equal unlabored respirations, skin warm/dry/pink. no complaints made awaiting for result. 01:30 Reassessment: Patient appears in no apparent distress at this time. Patient and/or rr5 family updated on plan of care and expected duration. Pain level reassessed. Patient is alert, oriented x 3, equal unlabored respirations, skin warm/dry/pink. repeat troponin extracted. Patient states feeling better. Patient states symptoms have improved. 02:40 Reassessment: Patient appears in no apparent distress at this time. Patient and/or rr5 family updated on plan of care and expected duration. Pain level reassessed. Patient is alert, oriented x 3, equal unlabored respirations, skin warm/dry/pink. discharge instruction given and explained without complaints made. Vital Signs: 06/18 22:05 BP 153 / 94; Pulse 90; Resp 16; Pulse Ox 98% on R/A; Weight 57.15 kg; la1 22:05 Temp 97.8; rr5 22:58 BP 112 / 73; Pulse 88; Resp 19; Pulse Ox 98% on R/A; rr5 06/19 01:09 BP 97 / 59; Pulse 83; Resp 18; Pulse Ox 95% on R/A; ak1 01:33 BP 115 / 84; Pulse 78; Resp 16; Pulse Ox 98% on R/A; rr5 02:30 BP 133 / 75; Pulse 75; Resp 19; Temp 97.5; Pulse Ox 100% ; rr5 ED Course: 06/18 21:57 Patient arrived in ED. ds1 22:02 Bryan Apodaca, LARRY is Primary Nurse. la1 22:03 Haresh Kaufman MD is Attending Physician. tw4 22:04 Triage completed. la1 22:05 Arm band placed on right wrist. EKG completed in triage. Results shown to MD. la1 22:06 Patient has correct armband on for positive identification. Placed in gown. Bed in low ak1 position. Call light in reach. Side rails up X 1. school bus monitor on. Pulse ox on. NIBP on. 22:17 Inserted saline lock: 20 gauge in right antecubital area, using aseptic technique. oe Blood collected. 22:40 Initial Neb Treatment Given as ordered Patient was instructed and evaluated on rr5 procedure. 22:53 Initial Neb Treatment Given as ordered Patient tolerated procedure well without adverse rr5 effect. 23:06 XRAY Chest (1 view) In Process Unspecified. EDMS 06/19 02:40 No provider procedures requiring assistance completed. IV discontinued, intact, rr5 bleeding controlled, No redness/swelling at site. Pressure dressing applied. Administered Medications: 06/18 22:40 Drug: Albuterol 2.5 mg Route: Inhalation; rr5 22:40 CANCELLED (Duplicate Order): Albuterol 2.5 mg Inhalation once tw4 06/19 02:20 Drug: traMADol 50 mg {Note: rass 0.} Route: PO; rr5 02:40 Follow up: Response: No adverse reaction; RASS: Alert and Calm (0) rr5 Outcome: 02:16 Discharge ordered by . tw4 02:40 Discharged to home ambulatory. rr5 02:40 Condition: stable 02:40 Discharge instructions given to patient, Instructed on discharge instructions, follow up and referral plans. Demonstrated understanding of instructions, follow-up care, medications, Prescriptions given X 1. 02:41 Patient left the ED. rr5 Signatures: Dispatcher [employer] EDMS Marce Mann ds1 Bryan Apodaca RN RN la1 Lindsey Gudino RN RN ak1 Levy Keller Terrence, MD MD tw4 Rey Altamirano RN RN rr5
--- NOTE | 2019-06-19 02:18 | EDPHYS ---
Physician Documentation [facility] Name: Kelley Zapien Age: 68 yrs Sex: Female : 1950 Arrival Date: 06/18/2019 Time: 21:57 Bed 4 Private MD: ED Physician Haresh Kaufman HPI: 06/18 23:52 This 68 yrs old Female presents to ER via Wheelchair with complaints of tw4 Shortness Of Breath. 23:52 The patient has shortness of breath at rest. Onset: The symptoms/episode began/occurred tw4 today. Duration: The symptoms are continuous, and are unchanged since they started. The patient's shortness of breath is aggravated by. Associated signs and symptoms: The patient has no apparent associated signs or symptoms. Associated signs and symptoms: Pertinent negatives: chest pain. The patient has not experienced similar symptoms in the past. Historical: - Allergies: 22:05 No Known Allergies; la1 - Home Meds: 06/19 01:10 Dexilant 30 mg Oral CpDB 1 cap once daily [Active]; lisinopril 10 mg Oral tab 1 tab ak1 once daily [Active]; - PMHx: 06/18 22:05 one kidney; Hypertension; la1 - Immunization history:: Adult Immunizations up to date. - Social history:: Smoking status: Patient/guardian denies using tobacco. - Ebola Screening: : No symptoms or risks identified at this time. ROS: 23:52 Constitutional: Negative for fever, chills, and weight loss, Eyes: Negative for injury, tw4 pain, redness, and discharge, Cardiovascular: Negative for chest pain, palpitations, and edema, Abdomen/GI: Negative for abdominal pain, nausea, vomiting, diarrhea, and constipation, Back: Negative for injury and pain, MS/Extremity: Negative for injury and deformity, Skin: Negative for injury, rash, and discoloration, Neuro: Negative for headache, weakness, numbness, tingling, and seizure. 23:52 Respiratory: Positive for shortness of breath, Negative for cough, dyspnea on exertion, hemoptysis, orthopnea, pleurisy. Exam: 23:52 Constitutional: This is a well developed, well nourished patient who is awake, alert, tw4 and in no acute distress. Head/Face: Normocephalic, atraumatic. Chest/axilla: Normal chest wall appearance and motion. Nontender with no deformity. No lesions are appreciated. Cardiovascular: Regular rate and rhythm with a normal S1 and S2. No gallops, murmurs, or rubs. Normal PMI, no JVD. No pulse deficits. 23:52 Respiratory: the patient does not display signs of respiratory distress, Respirations: normal, Breath sounds: wheezing: expiratory is scattered. Vital Signs: 22:05 BP 153 / 94; Pulse 90; Resp 16; Pulse Ox 98% on R/A; Weight 57.15 kg; la1 22:05 Temp 97.8; rr5 22:58 BP 112 / 73; Pulse 88; Resp 19; Pulse Ox 98% on R/A; rr5 06/19 01:09 BP 97 / 59; Pulse 83; Resp 18; Pulse Ox 95% on R/A; ak1 01:33 BP 115 / 84; Pulse 78; Resp 16; Pulse Ox 98% on R/A; rr5 02:30 BP 133 / 75; Pulse 75; Resp 19; Temp 97.5; Pulse Ox 100% ; rr5 MDM: 06/18 22:03 Patient medically screened. tw4 06/19 05:47 Differential diagnosis: asthma, pneumonia, Pneumothorax reactive airway disease. Data tw4 reviewed: vital signs, nurses notes. Data reviewed: lab test result(s), CBC, white blood cell count, hemoglobin, hematocrit, platelets, electrolytes, sodium, potassium, chloride, serum bicarbonate, BUN, creatinine, serum glucose. Data interpreted: equipment monitor phototypesetting: rhythm is normal sinus rhythm, Pulse oximetry: Interpretation: normal. Counseling: I had a detailed discussion with the patient and/or guardian regarding: the historical points, exam findings, and any diagnostic results supporting the discharge/admit diagnosis, lab results, radiology results. Special discussion: I discussed with the patient/guardian in detail that at this point there is no indication for admission to the hospital. It is understood, however, that if the symptoms persist or worsen the patient needs to return immediately for re-evaluation. 06/18 22:05 Order name: Basic Metabolic Panel; Complete Time: 01:21 tw4 06/19 01:21 Interpretation: Normal except: CL 111; GLUC 122; BUN 22; GFR 47. tw4 06/18 22:05 Order name: CBC with Diff; Complete Time: 01:21 06/19 01:21 Interpretation: Within normal limits. 06/18 22:05 Order name: LFT's; Complete Time: 01:21 06/19 01:21 Interpretation: Within normal limits. 06/18 22:05 Order name: Magnesium; Complete Time: 01:21 06/19 01:22 Interpretation: Within normal limits: MG 2.2. 06/18 22:05 Order name: NT PRO-BNP; Complete Time: 01:21 06/19 01:22 Interpretation: Within normal limits: NT PRO-BNP 75. 06/18 22:05 Order name: PT-INR; Complete Time: 01:21 06/19 01:22 Interpretation: Within normal limits: PT 10.8. 06/18 22:05 Order name: Troponin (emerg Dept Use Only); Complete Time: 01:21 06/18 22:05 Order name: XRAY Chest (1 view) 06/18 22:05 Order name: EKG; Complete Time: 22:08 06/18 22:05 Order name: Cardiac monitoring; Complete Time: 22:08 06/19 01:24 Order name: Troponin (emerg Dept Use Only) 06/18 22:05 Order name: EKG - Nurse/Tech; Complete Time: 22:08 06/18 22:05 Order name: IV Saline Lock; Complete Time: 22:18 06/18 22:05 Order name: Labs collected and sent; Complete Time: 22:18 06/18 22:05 Order name: O2 Per Protocol; Complete Time: 22:08 06/18 22:05 Order name: O2 Sat Monitoring; Complete Time: 22:08 Administered Medications: 06/18 22:40 Drug: Albuterol 2.5 mg Route: Inhalation; rr5 22:40 CANCELLED (Duplicate Order): Albuterol 2.5 mg Inhalation once 06/19 02:20 Drug: traMADol 50 mg {Note: rass 0.} Route: PO; rr5 02:40 Follow up: Response: No adverse reaction; RASS: Alert and Calm (0) rr5 Disposition: 06/19/19 02:16 Discharged to Home. Impression: Exercise induced bronchospasm, Sprain of ligaments of cervical spine. - Condition is Stable. - Discharge Instructions: Bronchospasm, Adult, Cervical Sprain. - Prescriptions for ProAir HFA 90 mcg/actuation Inhalation HFA aerosol inhaler - inhale 2 puff by INHALATION route every 4-6 hours; 1 Inhaler. Cyclobenzaprine 10 mg Oral Tablet - take 1 tablet by ORAL route every 8 hours As needed; 30 tablet. Tramadol 50 mg Oral Tablet - take 1 tablet by ORAL route every 8 hours as needed; 12 tablet. - Medication Reconciliation Form, Thank You Letter, Antibiotic Education, Prescription Opioid Use form. - Follow up: Private Physician; When: Upon discharge from the Emergency Department; Reason: If symptoms return, Recheck today's complaints, Continuance of care. - Problem is new. - Symptoms have improved. Signatures: Dispatcher [employer] EDMS Bryan Apodaca RN RN la1 Lindsey Gudino RN RN ak1 Haresh Kaufman MD MD tw4 Rey Altamirano RN RN rr5 Corrections: (The following items were deleted from the chart) 06/18 22:40 22:39 Albuterol 2.5 mg Inhalation once ordered. tw4 tw06/19 02:41 02:16 06/19/2019 02:16 Discharged to Home. Impression: Exercise induced bronchospasm; rr5 Sprain of ligaments of cervical spine. Condition is Stable. Forms are Medication Reconciliation Form, Thank You Letter, Antibiotic Education, Prescription Opioid Use. Follow up: Private Physician; When: Upon discharge from the Emergency Department; Reason: If symptoms return, Recheck today's complaints, Continuance of care. Problem is new. Symptoms have improved. tw4
[2019-06-19] MEDS ORDERED: TRAMADOL HCL 50 MG TAB ONE (02:29)
[2019-06-19 03:15] VITALS: BP 133/75; TEMP 97.5; O2SAT 100
--- NOTE | 2019-06-19 08:12 | RAD REPORT ---
EXAM DESCRIPTION: RAD - Chest Single View - 06/18/2019 11:06 pm CLINICAL HISTORY: SOB Chest pain. COMPARISON: Chest Single View dated 03/06/2019 FINDINGS: Portable technique limits examination quality. The lungs are grossly clear. The heart is normal in size. No displaced fractures. IMPRESSION: No acute intrathoracic process suspected.
--- NOTE | 2019-06-19 13:37 | EKG ---
Test Date: 2019-06-18 Test Time: 22:03:38 Clinical Product Specialist: DAVID MEASUREMENT RESULTS: Intervals: Rate: 87 ND: 130 QRSD: 80 QT: 346 QTc: 416 [place]: P: 37 ND: 130 QRS: 51 T: 51 INTERPRETIVE STATEMENTS: Normal sinus rhythm Possible Left atrial enlargement Borderline ECG Compared to ECG 03/06/2019 09:27:54 Sinus arrhythmia no longer present Electronically Signed On 06-19-19 13:37:05 CDT by Freddy Negron
== END 2019-06-19 02:41 | disposition home or self-care (01) ==
LOC: ER 21:55
DX: J45.990 Exercise induced bronchospasm (principal); S13.4XXA Sprain of ligaments of cervical spine, initial encounter; I10 Essential (primary) hypertension; Z90.5 Acquired absence of kidney
CPT/HCPCS: 36415; 71045; 80048; 80076; 83735; 83880; 84484; 85025; 85610; 93005; 99285

== ENCOUNTER 2021-04-16 09:54 | Emergency (ER) | payer OTHER ==
--- OUTSIDE RECORDS SUMMARY | 2021-04-16 09:56 | XMS REPORT | Continuity of Care Document ---
:1950 Author Organization [facility] t Address [address] [place] [address] Care Team Providers Name Role Phone Geoff SAMPSON, A Attending Clinician Problems This patient has no known problems. Allergies, Adverse Reactions, Alerts This patient has no known allergies or adverse reactions. Medications This patient has no known medications. Procedures This patient has no known procedures. Encounters Start End Encounter Admission Attending Care Care Encounter Source Date/Time Date/Time Type Type Clinicians Facility Department ID 2021-03-28 2021-03-28 Office MAKAYLA Tellez [id number] 13:28:28 14:25:53 Visit Sighter [id number] [place] [id number] Elisha [id number] nal 044 Office [address] Results This patient has no known results.
[2021-04-16 10:35] LABS: Absolute Lymphocytes (CBC) 1.5 K/uL (0.7-4.9); Basophils % 0.7 % (0-1.3); Hematocrit 39.8 % (36.0-45.0); Lymphocytes % 27.2 % (15.3-44.8); MPV 9.1 fL (7.6-11.3); RBC Red Blood Cell Count 4.28 M/uL (3.86-4.86)
[2021-04-16] MEDS ORDERED: NA CHLORIDE 0.9% 1,000 ML ONE (10:36)
[2021-04-16] MEDS ORDERED: DIPHENHYDRAMINE 50 MG/ML VIAL ONE (10:48)
[2021-04-16] MEDS ORDERED: METOCLOPRAMIDE 10 MG/2mL INJ ONE (10:48)
[2021-04-16] MEDS ORDERED: KETOROLAC 30 MG/ML INJ ONE (10:48)
[2021-04-16 11:08] LABS: Albumin 3.9 g/dL (3.4-5.0); Bilirubin Direct 0.1 mg/dL (0-0.2); Bilirubin Total 0.4 mg/dL (0.2-1.0); Protein, Total 6.8 g/dL (6.4-8.2)
--- NOTE | 2021-04-16 11:10 | RAD REPORT ---
EXAM DESCRIPTION: CT - Head Brain Wo Cont - 04/16/2021 10:59 am CLINICAL HISTORY: Headache COMPARISON: None TECHNIQUE: Computed axial tomography of the head was obtained. IV contrast was not requested. All CT scans are performed using dose optimization technique as appropriate and may include automated exposure control or mA/KV adjustment according to patient size. FINDINGS: An intracranial bleed is not seen . The ventricles are normal in caliber. No extra-axial fluid collection is noted. 1 centimeter calcified mass is present along the posterior right frontal convexity. No surrounding ed maxwell Fluid within the sinuses/ mastoids is not seen. IMPRESSION: 1 centimeter calcified mass along the right posterior frontal convexity probably a menin gioma. It is recommended that the patient have a nonemergent MRI with contrast for further evaluation
--- NOTE | 2021-04-16 11:22 | RAD REPORT ---
EXAM DESCRIPTION: CT - Abdomen Pelvis W Contrast - 04/16/2021 10:59 am CLINICAL HISTORY: Abdominal pain COMPARISON: 2018 TECHNIQUE: Computed axial tomography of the abdomen pelvis was obtained. 100 cc Isovue-300 was admin istered intravenously. Oral contrast was not requested which limits evaluation of bowel. All CT scans are performed using dose optimization technique as appropriate and may include automated exposure control or mA/KV adjustment according to patient size. 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 Normal appendix. No evidence of diverticulitis. The uterus lies to the right of midline. No adnexal mass. Marked anterior subluxation L5 on S1 with obliteration of the disc. 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
--- NOTE | 2021-04-16 12:08 | EDPHYS ---
Physician Documentation [facility] Name: Kelley Zapien Age: 70 yrs Sex: Female : 1950 Arrival Date: 04/16/2021 Time: 09:57 Bed 8 Private MD: ED Physician Van Wilhelm HPI: 04/16 11:05 This 70 yrs old Female presents to ER via Ambulatory with complaints of ma2 Headache, Ear Pain, Abdominal Pain. 11:05 The patient complains of pain to the forehead. Onset: The symptoms/episode ma2 began/occurred gradually, 2 day(s) ago. Associated signs and symptoms: Pertinent negatives: dizziness, nausea, paresthesias, Photophobia vision loss, vomiting, weakness, vertigo. Severity of symptoms: At its worst the pain was mild, in the emergency department the pain is unchanged. Headache History: The patient has had previous headaches and this one is similar to previous episodes. The symptoms are alleviated by nothing. the symptoms are aggravated by nothing. The patient has not experienced similar symptoms in the past. Historical: - Allergies: 10:03 No Known Allergies; ca1 - Home Meds: 10:33 Dexilant 30 mg Oral CpDB 1 cap once daily [Active]; lisinopril 10 mg Oral tab 1 tab hb once daily [Active]; - PMHx: 10:03 Hypertension; one kidney; ca1 - Immunization history:: Client reports receiving the 2nd dose of the Covid vaccine, Client reports receiving the 1st dose of the Covid vaccine, Pneumococcal vaccine is up to date, Flu vaccine is up to date. - Social history:: Smoking status: Patient denies any tobacco usage or history of. Patient/guardian denies using alcohol, street drugs, The patient lives with family. - Family history:: not pertinent. ROS: 11:05 Constitutional: Negative for fever, chills, and weight loss. ma2 11:05 All other systems are negative. Exam: 11:05 Constitutional: This is a well developed, well nourished patient who is awake, alert, ma2 and in no acute distress. Head/Face: Normocephalic, atraumatic. Eyes: Pupils equal round and reactive to light, extra-ocular motions intact. Lids and lashes normal. Conjunctiva and sclera are non-icteric and not injected. Cornea within normal limits. Periorbital areas with no swelling, redness, or edema. ENT: Nares patent. No nasal discharge, no septal abnormalities noted. Tympanic membranes are normal and external auditory canals are clear. Oropharynx with no redness, swelling, or masses, exudates, or evidence of obstruction, uvula midline. Mucous membranes moist. Neck: Trachea midline, no thyromegaly or masses palpated, and no cervical lymphadenopathy. Supple, full range of motion without nuchal rigidity, or vertebral point tenderness. No Meningismus. Chest/axilla: Normal chest wall appearance and motion. Nontender with no deformity. No lesions are appreciated. Cardiovascular: Regular rate and rhythm with a normal S1 and S2. No gallops, murmurs, or rubs. Normal PMI, no JVD. No pulse deficits. Respiratory: Lungs have equal breath sounds bilaterally, clear to auscultation and percussion. No rales, rhonchi or wheezes noted. No increased work of breathing, no retractions or nasal flaring. Abdomen/GI: Soft, non-tender, with normal bowel sounds. No distension or tympany. No guarding or rebound. No evidence of tenderness throughout. Back: No spinal tenderness. No costovertebral tenderness. Full range of motion. Skin: Warm, dry with normal turgor. Normal color with no rashes, no lesions, and no evidence of cellulitis. MS/ Extremity: Pulses equal, no cyanosis. Neurovascular intact. Full, normal range of motion. Neuro: Awake and alert, GCS 15, oriented to person, place, time, and situation. Cranial nerves II-XII grossly intact. Motor strength 5/5 in all extremities. Sensory grossly intact. Cerebellar exam normal. Normal gait. Vital Signs: 10:01 BP 138 / 92; Pulse 83; Resp 18 S; Temp 97.9(TE); Pulse Ox 99% ; Weight 55.34 kg (R); ca1 Height 4 ft. 11 in. (149.86 cm) (R); Pain 6/10; 11:28 BP 141 / 84; Pulse 76; Resp 17; Pulse Ox 98% on R/A; tw2 12:30 BP 126 / 78; Pulse 72; Resp 15; Pulse Ox 99% on R/A; hb 10:01 Body Mass Index 24.64 (55.34 kg, 149.86 cm) ca1 MDM: 10:10 Patient medically screened. ma2 11:05 Differential diagnosis: hypoglycemia, hyponatremia, migraine, sinusitis, tension ma2 headache, uremia. 12:06 Data reviewed: vital signs, nurses notes. Counseling: I had a detailed discussion with ma2 the patient and/or guardian regarding: the historical points, exam findings, and any diagnostic results supporting the discharge/admit diagnosis, the presence of at least one elevated blood pressure reading (>120/80) during this emergency department visit, the need for outpatient follow up. Response to treatment: the patient's symptoms have markedly improved after treatment. 04/16 10:12 Order name: Basic Metabolic Panel; Complete Time: 11:19 il2 04/16 10:12 Order name: CBC with Diff; Complete Time: 11: il2 04/16 10:12 Order name: Hepatic Function; Complete Time: 11:19 il2 04/16 10:12 Order name: Lipase; Complete Time: 11:19 [facility] 04/16 10:18 Order name: CT Head Brain wo Cont; Complete Time: 11:19 il2 04/16 10:18 Order name: CT Abd/Pelvis - IV Contrast Only; Complete Time: 12:06 il2 04/16 10:12 Order name: IV Saline Lock; Complete Time: 10:32 il2 04/16 10:12 Order name: Labs collected and sent; Complete Time: 11:54 il2 04/16 10:12 Order name: Urine Dipstick-Ancillary (obtain specimen); Complete Time: 11:54 ma Administered Medications: 10:31 Drug: Benadryl (diphenhydrAMINE) 25 mg Route: IVP; Site: left antecubital; hb 11:55 Follow up: Response: No adverse reaction hb 10:32 Drug: NS 0.9% 1000 ml Route: IV; Rate: 1 bolus; Site: left antecubital; hb 11:30 Follow up: Response: No adverse reaction; IV Status: Completed infusion; IV Intake: tw2 1000ml 10:32 Drug: Reglan (metoCLOPramide) 20 mg Route: IVP; Site: left antecubital; hb 11:54 Follow up: Response: No adverse reaction hb 10:32 Drug: Ketorolac 30 mg Route: IVP; Site: left antecubital; hb 11:54 Follow up: Response: No adverse reaction hb Disposition Summary: 04/16/21 12:07 Discharge Ordered Location: Home ma2 Condition: Stable ma2 Diagnosis - Migraine without aura, intractable ma2 - Upper abdominal pain, unspecified ma2 Followup: ma2 - With: Private Physician - When: Tomorrow - Reason: Continuance of care Discharge Instructions: - Discharge Summary Sheet ma2 - Abdominal Pain, Adult ma2 Forms: - Medication Reconciliation Form ma2 - Thank You Letter ma2 - Antibiotic Education ma2 - Prescription Opioid Use ma2 Prescriptions: - Reglan 10 mg Oral Tablet - take 1 tablet by ORAL route every 6 hours take 30 minutes before meals and at ma2 bedtime; 20 tablet; Refills: 0, Product Selection Permitted - Pepcid 20 mg Oral Tablet - take 1 tablet by ORAL route once daily for 10 days; 10 tablet; Refills: 0, ma2 Product Selection Permitted Signatures: Dispatcher [employer] Sara Saldivar RN RN Van Wilhelm MD MD [facility] Deborah Talbot RN RN [facility] Becky Ivey RN 2
--- NOTE | 2021-04-16 12:08 | ER ---
Nurse's Notes [facility] Name: Kelley Zapien Age: 70 yrs Sex: Female : 1950 Arrival Date: 04/16/2021 Time: 09:57 Bed 8 Private MD: Diagnosis: Migraine without aura, intractable;Upper abdominal pain, unspecified Presentation: 04/16 10:01 Chief complaint: Patient states: headache on the R side, taina ear pain more on the R, ca1 LLQ pain x 3 days. Denies N/V/D. Coronavirus screen: Client denies travel out of the [place] in the last 14 days. At this time, the client does not indicate any symptoms associated with coronavirus-19. Ebola Screen: Patient negative for fever greater than or equal to 101.5 degrees Fahrenheit, and additional compatible Ebola Virus Disease symptoms Patient denies exposure to infectious person. Patient denies travel to an Ebola-affected area in the 21 days before illness onset. No symptoms or risks identified at this time. Initial Sepsis Screen: Does the patient meet any 2 criteria? No. Patient's initial sepsis screen is negative. Does the patient have a suspected source of infection? No. Patient's initial sepsis screen is negative. Risk Assessment: Do you want to hurt yourself or someone else? Patient reports no desire to harm self or others. Onset of symptoms was April 14, 2021. 10:01 Method Of Arrival: Ambulatory ca1 10:01 Acuity: CHARLIE 3 ca1 Historical: - Allergies: 10:03 No Known Allergies; ca1 - Home Meds: 10:33 Dexilant 30 mg Oral CpDB 1 cap once daily [Active]; lisinopril 10 mg Oral tab 1 tab hb once daily [Active]; - PMHx: 10:03 Hypertension; one kidney; ca1 - Immunization history:: Client reports receiving the 2nd dose of the Covid vaccine, Client reports receiving the 1st dose of the Covid vaccine, Pneumococcal vaccine is up to date, Flu vaccine is up to date. - Social history:: Smoking status: Patient denies any tobacco usage or history of. Patient/guardian denies using alcohol, street drugs, The patient lives with family. - Family history:: not pertinent. Screenin:30 Abuse screen: Denies threats or abuse. Denies injuries from another. Nutritional hb screening: No deficits noted. Tuberculosis screening: No symptoms or risk factors identified. Fall Risk None identified. Assessment: 10:30 General: Appears in no apparent distress. uncomfortable, Behavior is calm, cooperative. hb Pain: Pain currently is 6 out of 10 on a pain scale. Neuro: Level of Consciousness is awake, alert, obeys commands, Oriented to person, place, time, situation, Reports headache. Cardiovascular: Patient's skin is warm and dry. Respiratory: Respiratory effort is even, unlabored, Respiratory pattern is regular, symmetrical. GI: Reports lower abdominal pain, upper abdominal pain, nausea. : No signs and/or symptoms were reported regarding the genitourinary system. EENT: No signs and/or symptoms were reported regarding the EENT system. Derm: Skin is pink, warm \T\ dry. Musculoskeletal: No signs and/or symptoms reported regarding the musculoskeletal system. 11:28 Reassessment: No changes from previously documented assessment. Patient and/or family tw2 updated on plan of care and expected duration. Pain level reassessed. Patient is alert, oriented x 3, equal unlabored respirations, skin warm/dry/pink. 12:40 Reassessment: Patient appears in no apparent distress at this time. Patient and/or hb family updated on plan of care and expected duration. Pain level reassessed. Patient is alert, oriented x 3, equal unlabored respirations, skin warm/dry/pink. Patient states feeling better. Patient states symptoms have improved. Vital Signs: 10:01 BP 138 / 92; Pulse 83; Resp 18 S; Temp 97.9(TE); Pulse Ox 99% ; Weight 55.34 kg (R); ca1 Height 4 ft. 11 in. (149.86 cm) (R); Pain 6/10; 11:28 BP 141 / 84; Pulse 76; Resp 17; Pulse Ox 98% on R/A; tw2 12:30 BP 126 / 78; Pulse 72; Resp 15; Pulse Ox 99% on R/A; hb 10:01 Body Mass Index 24.64 (55.34 kg, 149.86 cm) ca1 ED Course: 09:57 Patient arrived in ED. mr 10:02 Triage completed. ca1 10:03 Arm band placed on right wrist. ca1 10:10 Van Wilhelm MD is Attending Physician. ma2 10:13 Becky Ivey, RN is Primary Nurse. tw2 10:25 Inserted saline lock: 22 gauge in left antecubital area, using aseptic technique. hb ,using aseptic technique. by Veena Blood collected. 10:30 Patient has correct armband on for positive identification. Placed in gown. Bed in low hb position. Call light in reach. Side rails up X 1. 10:37 Warm blanket given. Pulse ox on. NIBP on. mh5 10:37 Initial lab(s) drawn, by or, sent to lab. Inserted saline lock: 22 gauge in left mh5 antecubital area, using aseptic technique. Blood collected. 10:59 CT Head Brain wo Cont In Process Unspecified. EDMS 10:59 CT Abd/Pelvis - IV Contrast Only In Process Unspecified. EDMS 12:40 No provider procedures requiring assistance completed. IV discontinued, intact, hb bleeding controlled, No redness/swelling at site. Administered Medications: 10:31 Drug: Benadryl (diphenhydrAMINE) 25 mg Route: IVP; Site: left antecubital; hb 11:55 Follow up: Response: No adverse reaction hb 10:32 Drug: NS 0.9% 1000 ml Route: IV; Rate: 1 bolus; Site: left antecubital; hb 11:30 Follow up: Response: No adverse reaction; IV Status: Completed infusion; IV Intake: tw2 1000ml 10:32 Drug: Reglan (metoCLOPramide) 20 mg Route: IVP; Site: left antecubital; hb 11:54 Follow up: Response: No adverse reaction hb 10:32 Drug: Ketorolac 30 mg Route: IVP; Site: left antecubital; hb 11:54 Follow up: Response: No adverse reaction hb Intake: 11:30 IV: 1000ml; Total: 1000ml. tw2 Outcome: 12:07 Discharge ordered by . ma2 12:40 Discharged to home ambulatory, with family. hb 12:40 Condition: stable 12:40 Discharge instructions given to patient, family, Instructed on discharge instructions, follow up and referral plans. medication usage, Demonstrated understanding of instructions, follow-up care, medications, Prescriptions given X 2. 12:40 Patient left the ED. hb Signatures: Dispatcher [facility] Daniella Salas Heather, RN RN Becky Babcock, RN RN tw2 Kelley Dinh 5 Van Wilhelm MD MD ma2 Deborah Talbot, LARRY RN ca1
[2021-04-16 13:00] VITALS: TEMP 97.9
[2021-04-16 13:07] VITALS: BP 126/78; O2SAT 99
== END 2021-04-16 12:40 | disposition home or self-care (01) ==
LOC: ER 09:54
DX: G43.019 Migraine without aura, intractable, without status migrainosus (principal); R10.10 Upper abdominal pain, unspecified; I10 Essential (primary) hypertension
CPT/HCPCS: 96361; 85025; 80048; 36415; 82565; 80076; 83690; 70450; 74177; 96375; 96374; 99284; Q9967; J2765; J1200; J7030

== ENCOUNTER 2021-07-04 11:27 | Emergency (ER) | payer OTHER ==
[2021-07-04 13:25] LABS: Urine Blood Negative (Negative); Urine Glucose Negative (Negative); Urine Protein Negative (Negative); Urine pH 7.5 (5.0-7.0)
[2021-07-04 14:29] LABS: Bilirubin Direct 0.1 mg/dL (0-0.2); Bilirubin Total 0.5 mg/dL (0.2-1.0); Protein, Total 6.6 g/dL (6.4-8.2)
[2021-07-04 14:31] LABS: Urine Bacteria <20 /HPF (<20); Urine RBC <5 /HPF (NONE SEEN)
[2021-07-04 14:31] LABS: Absolute Lymphocytes (CBC) 1.6 K/uL (0.7-4.9); Basophils % 0.8 % (0-1.3); Hematocrit 40.2 % (36.0-45.0); Lymphocytes % 24.6 % (15.3-44.8); RBC Red Blood Cell Count 4.34 M/uL (3.86-4.86)
--- NOTE | 2021-07-04 16:09 | RAD REPORT ---
EXAM DESCRIPTION: CT - Abdomen Pelvis W Contrast - 07/04/2021 3:07 pm CLINICAL HISTORY: Abdominal pain COMPARISON: March 2021 TECHNIQUE: Computed axial tomography of the abdomen pelvis was obtained. 100 cc Isovue-300 was admin istered intravenously. Oral contrast was not requested which limits evaluation of bowel. All CT scans are performed using dose optimization technique as appropriate and may include automated exposure control or mA/KV adjustment according to patient size. FINDINGS: The liver, spleen, pancreas, and adrenals appear unremarkable. Malrotation right kidney. A portion extends into the pelvis. An extrarenal pelvis is present. Tiny cy st. The left kidney is absent. Normal appendix. No evidence of diverticulitis. No adnexal mass. 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 Spondylolysis L5. Small umbi lical hernia IMPRESSION: No acute abnormality is displayed.
--- NOTE | 2021-07-04 16:37 | ER ---
Nurse's Notes [facility] Name: Kelley Zapien Age: 70 yrs Sex: Female : 1950 Arrival Date: 07/04/2021 Time: 11:50 Bed 9 Private MD: Diagnosis: Abdominal pain, unspecified Presentation: 07/04 11:54 Chief complaint: Patient states: L sided abd pain and low back pain for 3 weeks. + ll1 dysuria with frequency. Coronavirus screen: Vaccine status: Patient reports receiving the 2nd dose of the covid vaccine. Client denies travel out of the [place] in the last 14 days. At this time, the client does not indicate any symptoms associated with coronavirus-19. Ebola Screen: Patient denies travel to an Ebola-affected area in the 21 days before illness onset. Initial Sepsis Screen: Does the patient meet any 2 criteria? No. Patient's initial sepsis screen is negative. Does the patient have a suspected source of infection? Yes: Dysuria/Frequency/Urgency/UTI Acute abdominal pain. Risk Assessment: Do you want to hurt yourself or someone else? Patient reports no desire to harm self or others. Onset of symptoms was June 12, 2021. 11:54 Method Of Arrival: Ambulatory ll1 11:54 Acuity: CHARLIE 3 ll1 Historical: - Allergies: 11:56 No Known Allergies; ll1 - PMHx: 11:56 Hypertension; one kidney; ll1 - PSHx: 11:56 None; ll1 - Immunization history:: Client reports receiving the 2nd dose of the Covid vaccine. - Social history:: Smoking status: Patient/guardian denies using tobacco, the patient reports quitting approximately 25 years ago. Screenin:41 Abuse screen: Denies threats or abuse. Nutritional screening: No deficits noted. vg1 Tuberculosis screening: No symptoms or risk factors identified. Fall Risk No fall in past 12 months (0 pts). No secondary diagnosis (0 pts). IV access (20 points). Ambulatory Aid- None/Bed Rest/Nurse Assist (0 pts). Gait- Normal/Bed Rest/Wheelchair (0 pts) Mental Status- Oriented to own ability (0 pts). Total Burgos Fall Scale indicates No Risk (0-24 pts). Assessment: 13:30 General: Appears in no apparent distress. uncomfortable, Behavior is calm, cooperative. vg1 Pain: Complains of pain in posterior aspect of left lateral abdomen and left lower quadrant and throat Pain currently is 6 out of 10 on a pain scale. Pain began about three weeks ago. Neuro: Level of Consciousness is awake, alert, obeys commands, Oriented to person, place, time, situation. Cardiovascular: Patient's skin is warm and dry. Respiratory: Airway is patent Respiratory effort is even, unlabored. GI: Abdomen is flat, non-distended, Bowel sounds present X 4 quads. Abdomen is tender to palpation in left lower quadrant. : Reports burning with urination, pain. EENT: Throat is clear is reddened Reports sore throat. Derm: Skin is intact, is healthy with good turgor. Musculoskeletal: Circulation, motion, and sensation intact. 15:15 Reassessment: Patient appears in no apparent distress at this time. No changes from vg1 previously documented assessment. Patient and/or family updated on plan of care and expected duration. Pain level reassessed. Patient is alert, oriented x 3, equal unlabored respirations, skin warm/dry/pink. 16:43 Reassessment: Patient appears in no apparent distress at this time. No changes from vg1 previously documented assessment. Patient and/or family updated on plan of care and expected duration. Pain level reassessed. Patient is alert, oriented x 3, equal unlabored respirations, skin warm/dry/pink. Vital Signs: 11:54 BP 127 / 86; Pulse 76; Resp 16; Temp 97.3; Pulse Ox 98% ; Weight 56.25 kg; Height 4 ft. ll1 11 in. (149.86 cm); Pain 7/10; 13:30 BP 129 / 77; Pulse 74; Resp 18; Pulse Ox 100% ; vg1 15:15 BP 126 / 76; Pulse 67; Resp 16; Pulse Ox 100% ; vg1 16:43 BP 113 / 67; Pulse 72; Resp 16; Pulse Ox 100% ; vg1 11:54 Body Mass Index 25.04 (56.25 kg, 149.86 cm) ll1 ED Course: 11:50 Patient arrived in ED. rg4 11:56 Triage completed. ll1 11:56 Arm band placed on. ll1 13:18 Patient placed in an exam room, on a stretcher. ll1 13:24 Walter Gilbert NP is PHCP. pm1 13:24 Kameron Gaming MD is Attending Physician. pm1 13:26 Valeria Hicks, RN is Primary Nurse. vg1 13:41 Patient has correct armband on for positive identification. Bed in low position. Call vg1 light in reach. Side rails up X 1. 13:41 No provider procedures requiring assistance completed. vg1 14:02 Initial lab(s) drawn, by me, sent to lab. Inserted saline lock: 20 gauge in left vg1 antecubital area, using aseptic technique. Blood collected. 15:07 CT Abd/Pelvis - IV Contrast Only In Process Unspecified. EDMS 15:10 Inserted saline lock: 22 gauge in right antecubital area, using aseptic technique. vg1 ,using aseptic technique. completed by CT staff. 15:13 Patient moved back from CT. vg1 15:15 IV discontinued, intact, bleeding controlled, No redness/swelling at site. Pressure vg1 dressing applied, IV infiltrated in CT. 16:43 IV discontinued, intact, bleeding controlled, No redness/swelling at site. Pressure vg1 dressing applied. Administered Medications: No medications were administered Outcome: 16:36 Discharge ordered by MD. pm1 16:42 Discharged to home ambulatory. vg1 16:42 Condition: stable 16:42 Discharge instructions given to patient, Instructed on discharge instructions, follow up and referral plans. Demonstrated understanding of instructions, follow-up care. 16:43 Patient left the ED. vg1 Signatures: Dispatcher [employer] EDMO Walter Gilbert NP COVER INSPECTOR pm1 Katarina Hicks rg4 Valeria Hicks, LARRY RN vg1 Sandoval Redmond RN RN ll1 Corrections: (The following items were deleted from the chart) 15:17 15:16 Inserted saline lock: 22 gauge in right antecubital area, using aseptic vg1 technique. ,using aseptic technique. completed by CT staff vg1
--- NOTE | 2021-07-04 16:37 | EDPHYS ---
Physician Documentation [facility] Name: Kelley Zapien Age: 70 yrs Sex: Female : 1950 Arrival Date: 07/04/2021 Time: 11:50 Bed 9 Private MD: ED Physician Kameron Gaming HPI: 07/04 13:44 This 70 yrs old Female presents to ER via Ambulatory with complaints of Low pm1 Back Pain, Abdominal Pain. 13:44 The patient presents with abdominal pain in the left lower quadrant. Onset: The pm1 symptoms/episode began/occurred 3 week(s) ago. The symptoms do not radiate. Associated signs and symptoms: Pertinent positives: dysuria, Pertinent negatives: nausea, vomiting, and diarrhea. The symptoms are described as crampy. Modifying factors: The symptoms are alleviated by nothing, the symptoms are aggravated by Soda and tea intake. Severity of pain: in the emergency department the pain is unchanged. The patient has not recently seen a physician, has an appointment scheduled, Next week for the same complaints with Dr. Smith. Historical: - Allergies: 11:56 No Known Allergies; ll1 - PMHx: 11:56 Hypertension; one kidney; ll1 - PSHx: 11:56 None; ll1 - Immunization history:: Client reports receiving the 2nd dose of the Covid vaccine. - Social history:: Smoking status: Patient/guardian denies using tobacco, the patient reports quitting approximately 25 years ago. ROS: 13:44 Constitutional: Negative for fever, chills, and weight loss, Cardiovascular: Negative pm1 for chest pain, palpitations, and edema, Respiratory: Negative for shortness of breath, cough, wheezing, and pleuritic chest pain, Back: Negative for injury and pain, MS/Extremity: Negative for injury and deformity, Skin: Negative for injury, rash, and discoloration. 13:44 Abdomen/GI: Positive for abdominal pain, of the left lower quadrant, Negative for nausea, vomiting, and diarrhea. 13:44 : Positive for urinary frequency. 13:44 All other systems are negative. Exam: 13:44 Constitutional: This is a well developed, well nourished patient who is awake, alert, pm1 and in no acute distress. Head/Face: Normocephalic, atraumatic. 13:44 Back: No spinal tenderness. No costovertebral tenderness. Full range of motion. Skin: Warm, dry with normal turgor. Normal color with no rashes, no lesions, and no evidence of cellulitis. MS/ Extremity: Pulses equal, no cyanosis. Neurovascular intact. Full, normal range of motion. 13:44 Eyes: Exam is negative for acute changes, Periorbital structures: appear normal, Extraocular movements: no acute changes, Conjunctiva: normal, no acute changes. 13:44 ENT: Exam is negative for acute changes, Mouth: Lips: normal, moist, Oral mucosa: normal, pink and intact, moist. 13:44 Cardiovascular: Exam negative for acute changes, Rate: normal, Rhythm: regular, Pulses: no pulse deficits are appreciated, Edema: is not appreciated. 13:44 Respiratory: Exam negative for acute changes, respiratory distress, shortness of breath. 13:44 Abdomen/GI: Inspection: obese Palpation: abdomen is soft and non-tender, in all quadrants. 13:44 Neuro: Exam negative for acute changes, Orientation: is normal, Mentation: is normal, Motor: is normal, moves all fours. Vital Signs: 11:54 BP 127 / 86; Pulse 76; Resp 16; Temp 97.3; Pulse Ox 98% ; Weight 56.25 kg; Height 4 ft. ll1 11 in. (149.86 cm); Pain 7/10; 13:30 BP 129 / 77; Pulse 74; Resp 18; Pulse Ox 100% ; vg1 15:15 BP 126 / 76; Pulse 67; Resp 16; Pulse Ox 100% ; vg1 16:43 BP 113 / 67; Pulse 72; Resp 16; Pulse Ox 100% ; vg1 11:54 Body Mass Index 25.04 (56.25 kg, 149.86 cm) ll1 MDM: 13:35 Patient medically screened. pm1 16:10 ED course: Patient reports increased urination and frequency with drinking caffeine, pm1 sodas and tea. Not present with drinking water. 16:13 Data reviewed: vital signs. Data interpreted: Pulse oximetry: on room air is 100 %. pm1 Interpretation: normal. Counseling: I had a detailed discussion with the patient and/or guardian regarding: the historical points, exam findings, and any diagnostic results supporting the discharge/admit diagnosis, lab results, radiology results, the need for outpatient follow up, a family practitioner, a music supervisor, to return to the emergency department if symptoms worsen or persist or if there are any questions or concerns that arise at home. 07/04 13:25 Order name: Urine Dipstick-Ancillary; Complete Time: 13:35 EDMS 07/04 13:43 Order name: Urine Microscopic Only; Complete Time: 14:58 pm1 07/04 13:43 Order name: Basic Metabolic Panel; Complete Time: 14:58 pm1 07/04 13:43 Order name: CBC with Diff; Complete Time: 14:58 pm1 07/04 13:43 Order name: Hepatic Function; Complete Time: 14:58 pm1 07/04 13:43 Order name: Lipase; Complete Time: 14:58 pm1 07/04 13:43 Order name: IV Saline Lock; Complete Time: 14:02 pm1 07/04 13:43 Order name: Labs collected and sent; Complete Time: 14:02 pm1 07/04 13:44 Order name: CT Abd/Pelvis - IV Contrast Only; Complete Time: 16:10 pm1 Administered Medications: No medications were administered Disposition: 18:42 Co-signature as Attending Physician, Kameron Gaming MD. rn 18:42 I agree with the assessment and plan of care. Attestation: The patient's history, exam rn findings, diagnostics, and a summary of any interventions or procedures was reviewed in detail with Walter Gilbert NP. Disposition Summary: 07/04/21 16:36 Discharge Ordered Location: Home pm1 Problem: new pm1 Symptoms: have improved pm1 Condition: Stable pm1 Diagnosis - Abdominal pain, unspecified pm1 Followup: pm1 - With: Emergency Department - When: As needed - Reason: Worsening of condition Followup: pm1 - With: Private Physician - When: 2 - 3 days - Reason: Recheck today's complaints, Continuance of care, Re-evaluation by your physician Discharge Instructions: - Discharge Summary Sheet pm1 - Abdominal Pain, Adult pm1 Forms: - Medication Reconciliation Form pm1 - Thank You Letter pm1 - Antibiotic Education pm1 - Prescription Opioid Use pm1 Signatures: Dispatcher [employer] EDVT Kameron Gaming MD MD rn Marinas, Patrick, NP REGISTRAR ASSISTANT pm1 Sandoval Redmond RN RN ll1
[2021-07-04 16:51] VITALS: O2SAT 100
[2021-07-04 16:53] VITALS: TEMP 97.3
[2021-07-04 16:55] VITALS: BP 113/67
== END 2021-07-04 16:43 | disposition home or self-care (01) ==
LOC: ER 11:27
DX: R10.9 Unspecified abdominal pain (principal)
CPT/HCPCS: 85025; 80048; 36415; 80076; 83690; 74177; 99284; Q9967; 81003; 81015

== ENCOUNTER 2022-09-30 12:41 | Emergency (ER) | payer OTHER ==
--- OUTSIDE RECORDS SUMMARY | 2022-09-30 12:48 | XMS REPORT | Continuity of Care Document ---
:1950 Author Organization [facility] t Address [address] [place] [address] Care Team Providers Name Role Phone Mikala Horne Primary Care Physician MIKALA THIBODEAUX Attending Clinician Unavailable Mikala Horne Attending Clinician Donnie Yin Attending Clinician DONNIE BRADLEY Attending Clinician Unavailable MARILUZ PICHARDO Attending Clinician Unavailable Mariluz Pichardo DO Attending Clinician Doctor Unassigned, [place] Attending Clinician Unavailable Sofya Dominguez MA Attending Clinician Unavailable Lab, Ang - Db Attending Clinician Unavailable Joe Tavarez MD Attending Clinician SOULEYMANE URBANO Attending Clinician Unavailable Souleymane Urbano DO Attending Clinician JOE TAVAREZ Attending Clinician Unavailable RADIOLOGY Attending Clinician Unavailable Radiology Attending Clinician Unavailable Chrissie Deshpande RN Attending Clinician Unavailable Only, Ang Db Test Attending Clinician Unavailable Unknown, Attending Attending Clinician Unavailable Almaz Alvarez Attending Clinician UNKNOWN, ATTENDING Attending Clinician Unavailable Leonardo Huber Attending Clinician Unavailable PALOMA DECKER Attending Clinician Unavailable MARLENY BOO Attending Clinician Unavailable Zac Vivar MD Attending Clinician Marleny Boo PA-C Attending Clinician MARILUZ PICHARDO Admitting Clinician Unavailable SOULEYMANE URBANO Admitting Clinician Unavailable JOE TAVAREZ Admitting Clinician Unavailable SELF REFERRED, FACILITY NPI Admitting Clinician Unavailable Payers Payer Name Policy Type Policy Number Effective Date Expiration Date [facility] DUAL [id number] 2021 00:00:00 COMP HMO D SNP Problems Condition Condition Condition Status Onset Resolution Last Treating Co mments Source Name Details Category Date Date Treatment Clinician Date Wheezing Wheezing Disease Active 2021-09 Unive rs 2-05 ity of 00:00: [place] [facility] Bronchitis Bronchitis Disease Active 2021-09 U nivers 2-05 ity of 00:00: [place] [facility] Primary Primary Disease Active 2021-09 Univers cough cough 2-05 ity of headache headache 00:00: Medical Branch Nausea Nausea Disease Active 2021-09 Univers 2-05 ity of 00:00: [place] 00 Medical Branch Atopic Atopic Disease Active Univers dermatitis dermatitis 6-23 it y of 00:00: [place] [facility] Osteoporos Osteoporos Disease Active U kiya is is 9-24 ity of 00:00: [place] 00 Medical Branch 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, s, 8- ity of lumbosacra lumbosacra [place] [facility] Low back Low back Disease Active Or[place] rs pain pain 8-01 ity of radiating radiating 00:[place] lower 00 Med[place] extremity extremity Bran ch Spondyloli Spondyloli Disease Active U kiya sthesis at sthesis at 8-01 it y of L5-S1 L5-S1 00:00: [place] level level 00 Medical Branch 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 8- ity of lumbar lumbar 00:00: [place] region region 00 Medical Branch Pelvic Pelvic Disease Active Univers pain pain 8-01 ity of 00:00: [place] 00 Medical Branch Fluid in Fluid in Disease Active Unive rs endometria endometria 8- it y of l cavity l cavity 00:00: [place] 00 Medical Branch 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 [place] of itis of 00 Medical right knee right knee Br anch Chronic Chronic Disease Active Univers pain of pain of 4-30 ity of right [place] right [place] Hyperchole Hyperchole Disease Active U nivers sterolemia sterolemia 4-23 it y of 00:00: [place] [address] Medical Branch Breast Breast Disease Active Univers pain, left pain, left 4-16 it y of 00:00: [place] [address] Medical Branch Left-sided Left-sided Disease Active U nivers chest pain chest pain 4-16 it y of 00:00: [address] Branch 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 [place] 00 [place] [facility] 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 ity of [facility] Hypertensi Hypertensi Disease Active U nivers on on ity of [facility] Prediabete Prediabete Disease Active U nivers s s it of [facility] Allergies, Adverse Reactions, Alerts Allergy Allergy Status Severity Reaction(s) Onset Inactive Treating Comm ents Source Name Type Date Date Clinician NO KNOWN Drug Active Univers ALLERGIE Class ity of [facility] Social History Social Habit Start Date Stop Date Quantity Comments Source History of Current smoker [place] of tobacco use [facility] Exposure to 2022-08-21 2022-08-31 Not sure [facility] SARS-CoV-2 00:00:00 13:47:00 [facility] (event) [place] Alcohol intake 2022-08-31 2022-08-31 0 /d University 00:00:00 00:00:00 [facility] Tobacco use and 2021-03-28 2021-03-28 Smokeless tobacco Un iversity of exposure 00:00:00 00:00:00 non-user [facility] Sex [birth year] Universit y of 00:00:00 00:00:00 [facility] Smoking Status Start Date Stop Date Source Ex-smoker 2021-03-28 00:00:00 2021-03-28 00:00:00 Universi ty [facility] Medications Ordered Filled Start Stop Current Ordering Indication Dosage Frequency Signature Comments Components Source Medication Medication Date Date Medication? Clinician (SIG) Name Name lisinopriL Yes [id number] 10mg Take 1 U nivers 10 mg 1-03 tablet by ity of tablet 00:00: mouth [place] 00 daily. Medical Branch ibuprofen 2021-09- Yes [id number] 600mg Take 1 Univers 600 mg 2- 12-20 tablet by ity of tablet 00:00: 05:59 mouth [place] 00 :00 every 6 Medical (six) Branch hours as needed for Temp > 38.5 C for up to 14 days. ibuprofen 2021-09- Yes [id number] 600mg Take 1 Univers 600 mg 2- 12-20 tablet by ity of tablet 00:00: 05:59 mouth [place] 00 :00 every 6 Medical (six) Branch hours as needed for Temp > 38.5 C for up to 14 days. ibuprofen 2021-09- Yes [id number] 600mg Take 1 Univers 600 mg 2- 12-20 tablet by ity of tablet 00:00: 05:59 mouth [place] 00 :00 every 6 Medical (six) Branch hours as needed for Temp > 38.5 C for up to 14 days. ondansetron 2021-09- Yes [id number] 4mg Take 1 Univers (ZOFRAN) 4 2- 12-16 tablet by ity of mg tablet 00:00: 05:59 mouth [place] 00 :00 every 8 Medical (eight) Branch hours as needed for Nausea and Vomiting (N/V) for up to 10 days. ondansetron 2021-09- Yes [id number] 4mg Take 1 Univers (ZOFRAN) 4 2- 12-16 tablet by ity of mg tablet 00:00: 05:59 mouth [place] 00 :00 every 8 Medical (eight) Branch hours as needed for Nausea and Vomiting (N/V) for up to 10 days. ondansetron 2021-09- Yes [id number] 4mg Take 1 Univers (ZOFRAN) 4 2- 12-16 tablet by ity of mg tablet 00:00: 05:59 mouth [place] 00 :00 every 8 Medical (eight) Branch hours as needed for Nausea and Vomiting (N/V) for up to 10 days. amoxicillin 2021-09- Yes [id number] 1{tbl} Take 1 Univers -clavulanat 2- 12-13 tablet by it y of e 00:00: 05:59 mouth 2 [place] (AUGMENTIN) 00 :00 (two) Medical 875-125 mg times Branch per tablet daily for 7 days. benzonatate 2021-09- Yes [id number] 200mg Take 1 Univers 200 mg 11-01 capsule by ity of capsule 00:00: 05:59 mouth 3 [place] 00 :00 (three) Medical times Branch daily as needed for Cough for up to 7 days. amoxicillin 2021-09- Yes [id number] 1{tbl} Take 1 Univers -clavulanat 11-01 tablet by it y of e 00:00: 05:59 mouth 2 [place] (AUGMENTIN) 00 :00 (two) Medical 875-125 mg times Branch per tablet daily for 7 days. benzonatate 2021-09- Yes [id number] 200mg Take 1 Univers 200 mg 11-01 capsule by ity of capsule 00:00: 05:59 mouth 3 [place] 00 :00 (three) Medical times Branch daily as needed for Cough for up to 7 days. methylPREDN 2021-09- Yes [id number] Take by Univers ISolone 11-01 mouth ity of (MEDROL, 00:00: 05:59 [place]STRU [place] GE[place] 4 mg 00 :00 CTIONS for Med ical tablets 5 days. Branch follow package directions methylPREDN 2021-09- Yes [id number] Take by [facility] ISolone 11-01 mouth ity of (MEDROL, 00:00: 05:59 [place]STRU [place] 4 mg 00 :00 CTIONS for Med ical tablets 5 days. Branch follow package directions albuterol 2021-09- No Inhale. Univ ers sulfate 2 12-03 ity of (PROAIR 12:16: 00:00 [place] DIGIHALER) 54 :00 Medical 90 Branch mcg/actuati on aebs albuterol 2021-09 Yes [id number] 2{puff} Inhale 2 Univers 90 2-03 Puffs ity of mcg/actuati 00:00: every 4 [place] as on inhaler 00 (four) Medical hours as Branch needed for Wheezing or Shortness of Breath. albuterol 2021-09 Yes [id number] 2{puff} Inhale 2 Univers 90 2-03 Puffs ity of mcg/actuati 00:00: every 4 [place] as on inhaler 00 (four) Medical hours as Branch needed for Wheezing or Shortness of Breath. albuterol 2021-09 Yes [id number] 2{puff} Inhale 2 Univers 90 2-03 Puffs ity of mcg/actuati 00:00: every 4 [place] as on inhaler 00 (four) Medical hours as Branch needed for Wheezing or Shortness of Breath. albuterol 2021-09 Yes [id number] 2{puff} Inhale 2 Univers 90 2-03 Puffs ity of mcg/actuati 00:00: every 4 [place] as on inhaler 00 (four) Medical hours as Branch needed for Wheezing or Shortness of Breath. albuterol 2021-09 Yes [id number] 2{puff} Inhale 2 Univers 90 2-03 Puffs ity of mcg/actuati 00:00: every 4 [place] as on inhaler 00 (four) Medical hours as Branch needed for Wheezing or Shortness of Breath. atorvastati Yes [id number] 10mg Take 1 Univers n 10 mg 7-26 tablet by ity of tablet 00:00: mouth at [place] 00 bedtime. Medical Branch busPIRone Yes [id number] 10mg Take 1 Un sami 10 mg 7-26 tablet by ity of tablet 00:00: mouth 2 [place] (two) Medical times Branch daily. atorvastati Yes [id number] 10mg Take 1 Univers n 10 mg 7-26 tablet by ity of tablet 00:00: mouth at [place] 00 bedtime. Medical Branch lisinopriL Yes [id number] 10mg Take 1 U nivers 10 mg 7-26 tablet by ity of tablet 00:00: mouth 00 daily. Medical Branch busPIRone Yes [id number] 10mg Take 1 Un sami 10 mg 7-26 tablet by ity of tablet 00:00: mouth 2 [place] 00 (two) Medical times Branch daily. atorvastati Yes [id number] 10mg Take 1 Univers n 10 mg 7-26 tablet by ity of tablet 00:00: mouth at [place] 00 bedtime. Medical Branch lisinopriL 0 Yes [id number] 10mg Take 1 U nivers 10 mg 7-26 tablet by ity of tablet 00:00: mouth [place] 00 daily. Medical Branch busPIRone 0 Yes [id number] 10mg Take 1 Un sami 10 mg 7-26 tablet by ity of tablet 00:00: mouth 2 00 (two) Medical times Branch daily. atorvastati 0 Yes [id number] 10mg Take 1 Univers n 10 mg 7-26 tablet by ity of tablet 00:00: mouth at [place] 00 bedtime. Medical Branch lisinopriL 0 Yes [id number] 10mg Take 1 U nivers 10 mg 7-26 tablet by ity of tablet 00:00: mouth 00 daily. Medical Branch busPIRone Yes [id number] 10mg Take 1 Un sami 10 mg 7-26 tablet by ity of tablet 00:00: mouth 2 (two) Medical times Branch daily. atorvastati Yes [id number] 10mg Take 1 Univers n 10 mg 7-26 tablet by ity of tablet 00:00: mouth at [place] 00 bedtime. Medical Branch lisinopriL Yes [id number] 10mg Take 1 U nivers 10 mg 7-26 tablet by ity of tablet 00:00: mouth 00 daily. Medical Branch busPIRone Yes [id number] 10mg Take 1 Un sami 10 mg 7-26 tablet by ity of tablet 00:00: mouth 2 (two) Medical times Branch daily. atorvastati 0 Yes [id number] 10mg Take 1 Univers n 10 mg 7-26 tablet by ity of tablet 00:00: mouth at [place] 00 bedtime. Medical Branch lisinopriL Yes [id number] 10mg Take 1 U nivers 10 mg 7-26 tablet by ity of tablet 00:00: mouth 00 daily. Medical Branch busPIRone 0 Yes [id number] 10mg Take 1 Un sami 10 mg 7-26 tablet by ity of tablet 00:00: mouth 2 00 (two) Medical times Branch daily. atorvastati 0 Yes [id number] 10mg Take 1 Univers n 10 mg 7-26 tablet by ity of tablet 00:00: mouth at [place] 00 bedtime. Medical Branch lisinopriL 0 Yes [id number] 10mg Take 1 U nivers 10 mg 7-26 tablet by ity of tablet 00:00: mouth 00 daily. Medical Branch busPIRone 0 Yes [id number] 10mg Take 1 Un sami 10 mg 7-26 tablet by ity of tablet 00:00: mouth 2 (two) Medical times Branch daily. atorvastati 0 Yes [id number] 10mg Take 1 Univers n 10 mg 7-26 tablet by ity of tablet 00:00: mouth at 00 bedtime. Medical Branch lisinopriL 0 Yes [id number] 10mg Take 1 U nivers 10 mg 7-26 tablet by ity of tablet 00:00: mouth 00 daily. Medical Branch busPIRone 0 Yes [id number] 10mg Take 1 Un sami 10 mg 7-26 tablet by ity of tablet 00:00: mouth 2 (two) Medical times Branch daily. atorvastati 0 Yes [id number] 10mg Take 1 Univers n 10 mg 7-26 tablet by ity of tablet 00:00: mouth at [place] 00 bedtime. Medical Branch lisinopriL 0 Yes [id number] 10mg Take 1 U nivers 10 mg 7-26 tablet by ity of tablet 00:00: mouth 00 daily. Medical Branch busPIRone 0 Yes [id number] 10mg Take 1 Un sami 10 mg 7-26 tablet by ity of tablet 00:00: mouth (two) Medical times Branch daily. lisinopriL 0 3- No [id number] 10mg Take 1 Univers 10 mg 7-26 01-03 tablet by ity of tablet 00:00: 00:00 mouth [place] 00 :00 daily. Medical Branch chlorphenir 2021-0 Yes [id number] 4mg Take 1 Univers amine 4 mg 5-05 tablet by ity of tablet 00:00: mouth [place] 00 every 6 Medical (six) Branch hours as needed for Allergies or Runny nose. calcium/mag 2021-0 Yes [id number] 1{each} Take 1 Univers nesium/zinc 5-05 Each by ity o f (CALCIUM-MA 00:00: mouth [place] GNESUIUM-ZI 00 daily. Medica l AL) Branch 333-133-5 mg Tab chlorphenir 2022-0 Yes [id number] 4mg Take 1 Univers amine 4 mg 5-05 tablet by ity of tablet 00:00: mouth [place] 00 every 6 Medical (six) Branch hours as needed for Allergies or Runny nose. calcium/mag 2022-0 Yes [id number] 1{each} Take 1 Univers nesium/zinc 5-05 Each by ity o f (CALCIUM-MA 00:00: mouth [place] GNESUIUM-ZI 00 daily. Medica l AL) Branch 333-133-5 mg Tab benzonatate 2022-0 Yes [id number] 100mg Take 1 Univers 100 mg 5-05 capsule by ity of capsule 00:00: mouth 3 [place] 00 (three) Medical times Branch daily as needed for Cough. chlorphenir 2022-0 Yes [id number] 4mg Take 1 Univers amine 4 mg 5-05 tablet by ity of tablet 00:00: mouth [place] 00 every 6 Medical (six) Branch hours as needed for Allergies or Runny nose. calcium/mag 2022-0 Yes [id number] 1{each} Take 1 Univers nesium/zinc 5-05 Each by ity o f (CALCIUM-MA 00:00: mouth [place] GNESUIUM-ZI 00 daily. Medica l AL) Branch 333-133-5 mg Tab benzonatate 2022-0 Yes [id number] 100mg Take 1 Univers 100 mg 5-05 capsule by ity of capsule 00:00: mouth 3 [place] 00 (three) Medical times Branch daily as needed for Cough. chlorphenir 2022-0 Yes [id number] 4mg Take 1 Univers amine 4 mg 5-05 tablet by ity of tablet 00:00: mouth [place] 00 every 6 Medical (six) Branch hours as needed for Allergies or Runny nose. calcium/mag 2022-0 Yes [id number] 1{each} Take 1 Univers nesium/zinc 5-05 Each by ity o f (CALCIUM-MA 00:00: mouth [place] GNESUIUM-ZI 00 daily. Medica l AL) Branch 333-133-5 mg Tab benzonatate 2022-0 Yes [id number] 100mg Take 1 Univers 100 mg 5-05 capsule by ity of capsule 00:00: mouth 3 [place] 00 (three) Medical times Branch daily as needed for Cough. chlorphenir 2022-0 Yes [id number] 4mg Take 1 Univers amine 4 mg 5-05 tablet by ity of tablet 00:00: mouth [place] 00 every 6 Medical (six) Branch hours as needed for Allergies or Runny nose. calcium/mag 2022-0 Yes [id number] 1{each} Take 1 Univers nesium/zinc 5-05 Each by ity o f (CALCIUM-MA 00:00: mouth [place] GNESUIUM-ZI 00 daily. Medica l [place]) Branch 333-133-5 mg Tab benzonatate 2022-0 Yes [id number] 100mg Take 1 Univers 100 mg 5-05 capsule by ity of capsule 00:00: mouth 3 00 (three) Medical times Branch daily as needed for Cough. chlorphenir 2022-0 Yes [id number] 4mg Take 1 Univers amine 4 mg 5-05 tablet by ity of tablet 00:00: mouth [place] 00 every 6 Medical (six) Branch hours as needed for Allergies or Runny nose. calcium/mag 2022-0 Yes [id number] 1{each} Take 1 Univers nesium/zinc 5-05 Each by ity o f (CALCIUM-MA 00:00: mouth [place] GNESUIUM-ZI 00 daily. Medica l [place]) Branch 333-133-5 mg Tab benzonatate 2022-0 Yes [id number] 100mg Take 1 Univers 100 mg 5-05 capsule by ity of capsule 00:00: mouth 3 [place] 00 (three) Medical times Branch daily as needed for Cough. chlorphenir 2022-0 Yes [id number] 4mg Take 1 Univers amine 4 mg 5-05 tablet by ity of tablet 00:00: mouth [place] 00 every 6 Medical (six) Branch hours as needed for Allergies or Runny nose. calcium/mag 2022-0 Yes [id number] 1{each} Take 1 Univers nesium/zinc 5-05 Each by ity o f (CALCIUM-MA 00:00: mouth [place] GNESUIUM-ZI 00 daily. Medica l [place]) Branch 333-133-5 mg Tab chlorphenir 2022-0 Yes [id number] 4mg Take 1 Univers amine 4 mg 5-05 tablet by ity of tablet 00:00: mouth [place] 00 every 6 Medical (six) Branch hours as needed for Allergies or Runny nose. calcium/mag Yes [id number] 1{each} Take 1 Univers nesium/zinc 5-05 Each by ity o f (CALCIUM-MA 00:00: mouth [place] GNESUIUM-ZI 00 daily. Medica l NC) Branch 333-133-5 mg Tab chlorphenir Yes [id number] 4mg Take 1 Univers amine 4 mg 5-05 tablet by ity of tablet 00:00: mouth [place] 00 every 6 Medical (six) Branch hours as needed for Allergies or Runny nose. calcium/mag Yes [id number] 1{each} Take 1 Univers nesium/zinc 5-05 Each by ity o f (CALCIUM-MA 00:00: mouth [place] GNESUIUM-ZI 00 daily. Medica l NC) Branch 333-133-5 mg Tab benzonatate 2021- No [id number] 100mg Take 1 Univers 100 mg 5-05 12-05 capsule by ity of capsule 00:00: 00:00 mouth 3 [place] 00 :00 (three) Medical times Branch daily as needed for Cough. benzonatate 2021- No [id number] 100mg Take 1 Univers 100 mg 5-05 12-05 capsule by ity of capsule 00:00: 00:00 mouth 3 [place] 00 :00 (three) Medical times Branch daily as needed for Cough. atorvastati 2021- No [id number] 10mg Take 1 Univers n 10 mg 4-14 -26 tablet by ity of tablet 00:00: 00:00 mouth at [place] 00 :00 bedtime. Medical Branch busPIRone 2021- No [id number] 10mg Take 1 U nivers 10 mg 4-14 07-26 tablet by ity of tablet 00:00: 00:00 mouth 2 [place] 00 :00 (two) Medical times Branch daily. lisinopriL 2021- No [id number] 10mg Take 1 Univers 10 mg 4-14 07-26 tablet by ity of tablet 00:00: 00:00 mouth [place] 00 :00 daily. Medical Branch albuterol Yes Inhale. Unive rs sulfate 7-02 ity of (PROAIR 14:15: [place] DIGIHALER) 45 Medical 90 Branch mcg/actuati on aebs albuterol 0 Yes Inhale. Unive rs sulfate 7- ity of (PROAIR 14:15: [place] DIGIHALER) 45 Medical 90 Branch mcg/actuati on aebs albuterol 0 Yes Inhale. Unive rs sulfate 03-28 ity of (PROAIR 14:15: [place] DIGIHALER) 45 Medical 90 Branch mcg/actuati on aebs albuterol 0 Yes Inhale. Unive rs sulfate 03-28 ity of (PROAIR 14:15: [place] DIGIHALER) 45 Medical 90 Branch mcg/actuati on aebs DEXILANT 60 0 Yes Univer s mg capsule 03-27 ity of 00:00: 00 Medical Branch DEXILANT 60 2020-0 Yes Univer s mg capsule 03-27 ity of 00:00: [place] 00 Medical Branch DEXILANT 60 2020-0 Yes Univer s mg capsule 03-27 ity of 00:00: [place] 00 Medical Branch DEXILANT 60 2020-0 Yes Univer s mg capsule 03-27 ity of 00:00: [place] 00 Medical Branch DEXILANT 60 2021-0 Yes Univer s mg capsule 03-27 ity of 00:00: [place] 00 Medical Branch DEXILANT 60 1-0 Yes Univer s mg capsule 03-27 ity of 00:00: [place] 00 Medical Branch DEXILANT 60 1-0 Yes Univer s mg capsule 03-27 ity of 00:00: [place] 00 Medical Branch DEXILANT 60 1-0 Yes Univer s mg capsule 03-27 ity of 00:00: [place] 00 Medical Branch DEXILANT 60 1-0 Yes Univer s mg capsule 03-27 ity of 00:00: [place] 00 Medical Branch Immunizations Ordered Filled Immunization Date Status Comments [facility] e Immunization Name Name Zoster(Zostavax)( 2022-01-06 Completed Unive rsity of raúl) 00:00:00 [facility] Zoster(Zostavax)( 2022-01-06 Completed Unive rsity of ingjennifer) 00:00:00 [facility] Zoster(Zostavax)( 2022-01-06 Completed Unive rsity of raúl) 00:00:00 [place] [facility] Zoster(Zostavax)( 2022-01-06 Completed Unive rsity of ingles) 00:00:00 [facility] Zoster(Zostavax)( 2022-01-06 Completed Unive rsity of ingles) 00:00:00 [facility] Branch Zoster(Zostavax)( 2022-01-06 Completed Unive rsity of ingles) 00:00:00 [facility] Zoster(Zostavax)( 2022-01-06 Completed Unive rsity of ingles) 00:00:00 [facility] Zoster(Zostavax)( 2022-01-06 Completed Unive rsity of ingles) 00:00:00 [facility] Branch SARS-COV-2 COVID-19 2021-07-28 Completed Unive rsity of MODERNA 12+ YRS 00:00:00 [facility] ical VACCINE Branch SARS-COV-2 COVID-19 2021-07-28 Completed Unive rsity of MODERNA 12+ YRS 00:00:00 [place] [facility] ical VACCINE Branch SARS-COV-2 COVID-19 2021-07-28 Completed Unive rsity of MODERNA VACCINE 00:00:00 [facility] ical Branch SARS-COV-2 COVID-19 2021-07-28 Completed Unive rsity of MODERNA VACCINE 00:00:00 [place] [facility] ical Branch SARS-COV-2 COVID-19 2021-07-28 Completed Unive rsity of MODERNA 12+ YRS 00:00:00 [place] Med ical VACCINE Branch SARS-COV-2 COVID-19 2021-07-28 Completed Unive rsity of MODERNA 12+ YRS 00:00:00 [place] Med ical VACCINE Branch SARS-COV-2 COVID-19 2021-07-28 Completed Unive rsity of MODERNA 12+ YRS 00:00:00 [place] Med ical VACCINE Branch SARS-COV-2 COVID-19 2021-07-28 Completed Unive rsity of MODERNA 12+ YRS 00:00:00 [place] Med ical VACCINE Branch SARS-COV-2 COVID-19 2021-07-28 Completed Unive rsity of MODERNA 12+ YRS 00:00:00 [place] [facility] ical VACCINE Branch SARS-COV-2 COVID-19 2020-12-26 Completed Unive rsity of MODERNA 12+ YRS 00:00:00 [place] Med ical VACCINE Branch SARS-COV-2 COVID-19 2020-12-26 Completed Unive rsity of MODERNA VACCINE 00:00:00 [place] Med ical Branch SARS-COV-2 COVID-19 2020-12-26 Completed Unive rsity of MODERNA VACCINE 00:00:00 [place] Med ical Branch SARS-COV-2 COVID-19 2020-12-26 Completed Unive rsity of MODERNA 12+ YRS 00:00:00 [place] Med ical VACCINE Branch SARS-COV-2 COVID-19 2020-12-26 Completed Unive rsity of MODERNA 12+ YRS 00:00:00 [place] Med ical VACCINE Branch SARS-COV-2 COVID-19 2020-12-26 Completed Unive rsity of MODERNA 12+ YRS 00:00:00 [place] Med ical VACCINE Branch SARS-COV-2 COVID-19 2020-12-26 Completed Unive rsity of MODERNA 12+ YRS 00:00:00 [place] Med ical VACCINE Branch SARS-COV-2 COVID-19 2020-12-26 Completed Unive rsity of MODERNA 12+ YRS 00:00:00 [place] Med ical VACCINE Branch SARS-COV-2 COVID-19 2020-12-26 Completed Unive rsity of MODERNA 12+ YRS 00:00:00 [place] Med ical VACCINE Branch SARS-COV-2 COVID-19 2020-10-28 Completed Unive rsity of MODERNA 12+ YRS 00:00:00 [place] Med ical VACCINE Branch SARS-COV-2 COVID-19 2020-10-28 Completed Unive rsity of MODERNA VACCINE 00:00:00 [place] Med ical Branch SARS-COV-2 COVID-19 2020-10-28 Completed Unive rsity of MODERNA VACCINE 00:00:00 [place] Med ical Branch SARS-COV-2 COVID-19 2020-10-28 Completed Unive rsity of MODERNA 12+ YRS 00:00:00 [place] Med ical VACCINE Branch SARS-COV-2 COVID-19 2020-10-28 Completed Unive rsity of MODERNA 12+ YRS 00:00:00 [place] Med ical VACCINE Branch SARS-COV-2 COVID-19 2020-10-28 Completed Unive rsity of MODERNA 12+ YRS 00:00:00 [place] Med ical VACCINE Branch SARS-COV-2 COVID-19 2020-10-28 Completed Unive rsity of MODERNA 12+ YRS 00:00:00 [place] Med ical VACCINE Branch SARS-COV-2 COVID-19 2020-10-28 Completed Unive rsity of MODERNA 12+ YRS 00:00:00 [place] Med ical VACCINE Branch SARS-COV-2 COVID-19 2020-10-28 Completed Unive rsity of MODERNA 12+ YRS 00:00:00 [place] Med ical VACCINE Branch Pneumococcal 2018-11-29 Completed University o f Polysaccharide, 00:00:00 [place] Med ical PPSV23 (PNEUMOVAX) Branch Pneumococcal 2018-11-29 Completed University o f Polysaccharide, 00:00:00 [place] Med ical PPSV23 (PNEUMOVAX) Branch Pneumococcal 2018-11-29 Completed University o f Polysaccharide, 00:00:00 [place] Med ical PPSV23 (PNEUMOVAX) Branch Pneumococcal 2018-11-29 Completed University o f Polysaccharide, 00:00:00 [place] Med ical PPSV23 (PNEUMOVAX) Branch Pneumococcal 2018-11-29 Completed University o f Polysaccharide, 00:00:00 [place] Med ical PPSV23 (PNEUMOVAX) Branch Pneumococcal 2018-11-29 Completed University o f Polysaccharide, 00:00:00 [place] Med ical PPSV23 (PNEUMOVAX) Branch Pneumococcal 2018-11-29 Completed University o f Polysaccharide, 00:00:00 [place] Med ical PPSV23 (PNEUMOVAX) Branch Pneumococcal 2018-11-29 Completed University o f Polysaccharide, 00:00:00 [place] [facility] PPSV23 (PNEUMOVAX) Branch Pneumococcal 2018-11-29 Completed University o f Polysaccharide, 00:00:00 [place] [facility] PPSV23 (PNEUMOVAX) Branch Pneumococcal 13 2018-06-09 Completed Universit y of Conjugate, PCV13 00:00:00 [place] [facility] (Prevnar 13) Branch Pneumococcal 13 2018-06-09 Completed Universit y of Conjugate, PCV13 00:00:00 [place] [facility] (Prevnar 13) Branch Pneumococcal 13 2018-06-09 Completed Universit y of Conjugate, PCV13 00:00:00 [place] [facility] (Prevnar 13) Branch Pneumococcal 13 2018-06-09 Completed Universit y of Conjugate, PCV13 00:00:00 [place] [facility] (Prevnar 13) Branch Pneumococcal 13 2018-06-09 Completed Universit y of Conjugate, PCV13 00:00:00 [place] [facility] (Prevnar 13) Branch Pneumococcal 13 2018-06-09 Completed Universit y of Conjugate, PCV13 00:00:00 [place] [facility] (Prevnar 13) Branch Pneumococcal 13 2018-06-09 Completed Universit y of Conjugate, PCV13 00:00:00 [place] [facility] (Prevnar 13) Branch Pneumococcal 13 2018-06-09 Completed Universit y of Conjugate, PCV13 00:00:00 [place] [facility] (Prevnar 13) Branch Pneumococcal 13 2018-06-09 Completed Universit y of Conjugate, PCV13 00:00:00 [facility] dical (Prevnar 13) Branch TDAP 2015-05-02 Completed University of 00:00:00 [facility] TDAP 2015-05-02 Completed University of 00:00:00 [facility] TDAP 2015-05-02 Completed University of 00:00:00 [facility] TDAP 2015-05-02 Completed University of 00:00:00 [facility] TDAP 2015-05-02 Completed University of 00:00:00 [facility] TDAP 2015-05-02 Completed University of 00:00:00 [facility] TDAP 2015-05-02 Completed University of 00:00:00 [facility] TDAP 2015-05-02 Completed University of 00:00:00 [facility] TDAP 2015-05-02 Completed University of 00:00:00 [facility] Influenza Virus 2007-10-14 Completed Universit y of Vaccine 00:00:00 [facility] Influenza Virus 2007-10-14 Completed Universit y of Vaccine 00:00:00 [facility] Influenza Virus 2007-10-14 Completed Universit y of Vaccine 00:00:00 [facility] Influenza Virus 2007-10-14 Completed Universit y of Vaccine 00:00:00 [facility] Influenza Virus 2007-10-14 Completed Universit y of Vaccine 00:00:00 [facility] Influenza Virus 2007-10-14 Completed Universit y of Vaccine 00:00:00 [facility] Influenza Virus 2007-10-14 Completed Universit y of Vaccine 00:00:00 [facility] Influenza Virus 2007-10-14 Completed Universit y of Vaccine 00:00:00 [facility] Influenza Virus 2007-10-14 Completed Universit y of Vaccine 00:00:00 [facility] Vital Signs Vital Name Observation Time Observation Value Comments Source Systolic blood 2022-08-31 20:16:00 137 mm[Hg] Univer sity of pressure [facility] Diastolic blood 2022-08-31 20:16:00 80 mm[Hg] Unive rsity of pressure [facility] Heart rate 2022-08-31 20:16:00 107 /min Universi ty of [facility] Body temperature 2022-08-31 20:16:00 36.72 Mickie Univ ersity of [facility] Body height 2022-08-31 20:16:00 149.9 cm [facility] Body weight 2022-08-31 20:16:00 56.7 kg Universi ty of [facility] BMI 2022-08-31 20:16:00 25.25 kg/m2 [facility] Oxygen saturation in 2022-08-31 20:16:00 95 /min University of Arterial blood by [facility] itzel Pulse oximetry Branch Systolic blood 2022-08-29 18:12:00 157 mm[Hg] Univer sity of pressure [facility] Diastolic blood 2022-08-29 18:12:00 82 mm[Hg] Unive rsity of pressure [facility] Heart rate 2022-08-29 18:12:00 122 /min [facility] Body temperature 2022-08-29 18:12:00 37.28 Mickie Univ ersity of [facility] Respiratory rate 2022-08-29 18:12:00 19 /min Univ [facility] Body height 2022-08-29 18:12:00 157.5 cm [facility] Body weight 2022-08-29 18:12:00 56.7 kg [facility] BMI 2022-08-29 18:12:00 22.86 kg/m2 [facility] Oxygen saturation in 2022-08-29 18:12:00 98 /min University of Arterial blood by [employer] itzel Pulse oximetry Branch Systolic blood 2022-04-21 13:44:00 124 mm[Hg] Univer sity of pressure [facility] Diastolic blood 2022-04-21 13:44:00 74 mm[Hg] Unive rsity [facility] Heart rate 2022-04-21 13:44:00 83 /min [facility] Body height 2022-04-21 13:44:00 147.3 cm [facility] Body weight 2022-04-21 13:44:00 57.108 kg [facility] BMI 2022-04-21 13:44:00 26.31 kg/m2 [facility] Oxygen saturation in 2022-04-21 13:44:00 97 /min [facility] Arterial blood by [facility] Pulse oximetry [place] Procedures Procedure Date / Time Performing Clinician Source Performed XR CHEST 1 VW 2022-08-29 18:32:00 Mariluz Pichardo [facility] RAPID INFLUENZA A/B 2022-08-29 18:18:00 Mariluz Pichardo [facility] CONSENT/REFUSAL FOR 2022-08-29 18:09:17 Doctor Ryan [facility] DIAGNOSIS AND TREATMENT [place] [facility] EXTERNAL PROVIDER RECORDS 2022-07-15 05:01:00 Doctor Ryan, [facility] [place] [facility] INSURANCE CORRESPONDENCE 2022-05-23 05:01:00 Doctor Ryan, [facility] Name [facility] Encounters Start End Encounter Admission Attending Care Care Encounter Source Date/Time Date/Time Type Type Clinicians Facility Department ID 2022-10-27 2022-10-27 Outpatient R CARLOS EDUARDO [facility] [id number] Univers 09:00:00 09:00:00 MIKALA lott [facility] 2022-09-29 2022-09-29 Telephone Carlos Eduardo [facility] [id number] Univers 00:00:00 00:00:00 Zakazaka 350.1.13.10 it y [facility] 4.2.7.2.686 Marv as BROOKS?BLEA [phone] [address] MEDICAL OFFICE BUILDING 2022-09-10 2022-09-10 Refill Dexter MTPATRIZIA 1.2.840.114 [id number] Univers 00:00:00 00:00:00 Donnie [facility] 350.1.13.10 it y of [place] 4.2.7.2.686 Marv as BROOKS?BLEA [phone] [address] MEDICAL OFFICE [facility] 2022-08-31 2022-08-31 Office Dexter [facility] 1.2.840.114 [id number] Univers 14:00:00 14:30:00 Visit Donnie VALLADARES 350.1.13.10 it y of [place] 4.2.7.2.686 Marv as BROOKS?BLEA [phone] [address] OFFICE [facility] 2022-08-31 2022-08-31 Outpatient [facility] [id number] Univers 14:00:00 14:00:00 DONNIE lott [facility] 2022-08-29 2022-08-29 Emergency X [facility] ERT [id number] Univers 12:19:00 14:20:00 MARILUZ lott [facility] 2022-08-29 2022-08-29 Emergency [facility] 1.2.840.114 [id number] Univers 12:19:00 14:20:00 Mariluz DODSON 350.1.13.10 ity of [place] 4.2.7.2.686 [facility] [phone] [place] 425494 [place] 2022-07-15 2022-07-15 Orders Doctor JELANI 1.2.840.114 [id number] Univers 00:00:00 00:00:00 Only Unassigned, ABBIE 350.1.13.10 ity of [place] [facility] 4.2.7.2.686 Marv as [phone] [address] 2022-05-23 2022-05-23 Orders Doctor JELANI 1.2.840.114 [id number] Univers 00:00:00 00:00:00 Only Unassigned, ABBIE 350.1.13.10 ity of [place] [facility] 4.2.7.2.686 Marv as [phone] [address] 2022-05-20 2022-05-20 ANTHONY Murphy 1.2.840.114 [id number] Univers 00:00:00 00:00:00 Management Sofya HEATH 350.1.13.10 [place] [id number] [address] 2022-04-21 2022-04-21 Outpatient R CARLOS EDUARDO [facility] [id number] Univers 09:33:44 23:59:00 MIKALA ity [facility] 2022-04-21 2022-04-21 Flour Blender Lab, Ang - [facility] 1.2.840.1 [id number] Univers 09:30:00 09:45:00 Visit Mikala Thibodeaux HEALTH 350.1.13.10 ity of [place] 4.2.7.2.686 Marv as BROOKS?BLEA [phone] [address] MEDICAL OFFICE [facility] 2022-04-21 2022-04-21 Outpatient R CARLOS EDUARDO [facility] [id number] Univers 08:30:00 09:29:49 MIKALA itmikael [facility] 2022-04-21 2022-04-21 Office [facility] 1.2.840.114 [id number] Univers 08:30:00 09:29:49 Visit Mikala HEALTH 350.1.13.10 it y of [place] 4.2.7.2.686 Marv as BROOKS?BLEA [phone] [address] MEDICAL OFFICE [facility] 2022-04-20 2022-04-20 Abstract Carlos Eduardo [facility] 1.2.840.114 [id number] Univers 00:00:00 00:00:00 Mikala HEALTH 350.1.13.10 it y of [place] 4.2.7.2.686 Marv as BROOKS?BLEA [phone] [address] MEDICAL OFFICE [facility] 2022-04-10 2022-04-10 Telephone Geoff [facility] 1.2.840.114 [id number] Univers 00:00:00 00:00:00 Wondiful A HEALTH 350.1.13.10 ity of [place] 4.2.7.2.686 Marv as BROOKS?BLEA [id number] [address] MEDICAL OFFICE [facility] 2022-01-29 2022-01-29 Emergency X , [facility] ERT [id number] Univers 10:20:00 13:12:00 SOULEYMANE ity of [facility] 2022-01-29 2022-01-29 Emergency [facility] 1.2.139.295 [id number] Univers 10:20:00 13:12:00 Souleymane DODSON 350.1.13.10 i ty of [place].7.2.[place] [id number] [facility] 084 [place] 2022-01-07 2022-01-07 Refill [facility] 1.2.840.114 [id number] Univers 00:00:00 00:00:00 Wondiful A HEALTH 350.1.13.10 ity of [place] 4.2.7.2.686 Marv as BROOKS?BLEA [phone] Pr dical [address] MEDICAL OFFICE [facility] 2021-12-05 2021-12-05 Out[facility] [id number] Univers 07:37:03 23:59:00 WONDIFUL ity o f [facility] 2021-12-05 2021-12-05 [facility] 1.2.943.805 [id number] Univers 07:37:03 23:59:00 Encounter Wondiful A [place] 350.1.13.10 ity of [place] 4.2.7.2.686 [facility] [id number] [facility] 801 [place] 2021-10-31 2021-10-31 Outpatient [facility] [id number] Univers 00:00:00 00:00:00 WONDIFUL ity o f [facility] 2021-10-22 2021-10-22 Orders Doctor JELANI 1.2.840.114 [id number] Univers 00:00:00 00:00:00 Only Unassigned, ABBIE 350.1.13.10 ity of [place] [facility] 4.2.7.2.686 Marv as [phone] [facility] 009 [place] 2021-10-18 2021-10-18 Case [facility] 1.2.840.114 [id number] Univers 00:00:00 00:00:00 Management Wondiful A HEALTH 350.1.13.10 ity of [place] 4.2.7.2.686 Marv as BROOKS?BLEA [phone] Pr leonard GRAMAJO [address] MEDICAL OFFICE [facility] 2021-10-17 2021-10-17 Flour Blender Lab, Ang - Db [facility] 1.2.840.1 14 [id number] Univers 12:15:00 12:30:00 Visit Joe Tavarez HEALTH 350.1.13.1 0 ity of [place] 4.2.7.2.686 Marv as BROOKS?BLEA [id number] Pr leonard GRAMAJO [address] MEDICAL OFFICE [facility] 2021-10-17 2021-10-17 Outpatient R GEOFF [facility] [id number] [facility] 11:30:00 12:17:16 WONDIFUL ity o f [facility] 2021-10-17 2021-10-17 Office [facility] 1.2.840.114 [id number] Univers 11:30:00 12:17:16 Visit Dollyful A HEALTH 350.1.13.10 ity of [place] 4.2.7.2.686 Marv as BROOKS?BLEA [phone] Pr leonard [address] MEDICAL OFFICE [facility] 2021-10-01 2021-10-01 Outpatient R GEOFF [facility] [id number] Univers 08:15:00 08:15:00 WONDIFUL ity o f [facility] 2021-08-27 2021-08-27 Outpatient R GEOFF [facility] [id number] Univers 09:30:00 09:30:00 WONDIFUL ity o f [facility] 2021-08-08 2021-08-08 Outpatient R RADIOLOGY [facility] [id number] Univers 07:41:49 23:59:00 ity of [facility] 2021-08-08 2021-08-08 Hospital Radiology [facility] 1.2.840.114 [id number] Univers 07:41:49 23:59:00 Encounter [place] 350.1.13.10 ity of [facility] [place] 4.2.7.2.686 [place] [phone] [facility] 800 [place] 2021-07-22 2021-07-22 Orders Doctor JELANI 1.2.840.114 [id number] Univers 00:00:00 00:00:00 Only Unassigned, ABBIE 350.1.13.10 ity of [place] [facility] 4.2.7.2.686 Marv as [phone] [facility] 009 [place] 2021-07-10 2021-07-10 Office Geoff [facility] 1.2.840.114 [id number] Univers 08:30:00 09:00:00 Visit Wondiful A Health 350.1.13.10 ity of [place] 4.2.7.2.686 Marv as Brooks?Blea [phone] [address] Office Building 2021-07-10 2021-07-10 Outpatient R RADIOLOGY [facility] [id number] Univers 00:00:00 00:00:00 ity of [facility] 2021-07-03 2021-07-03 Telephone Geoff [facility] 1.2.840.114 [id number] Univers 00:00:00 00:00:00 Wondiful A Health 350.1.13.10 ity of [place] 4.2.7.2.686 Marv as Brooks?Blea [phone] [address] Office [facility] 2021-07-03 2021-07-03 Refill Geoff [facility] 1.2.840.114 [id number] Univers 00:00:00 00:00:00 Wondiful A Health 350.1.13.10 ity of [place] 4.2.7.2.686 Marv as Professio [phone] [address] Office Building One 2021-06-09 2021-06-09 Letter JELANI Deshpande 1.2.840.114 [id number] Univers 00:00:00 00:00:00 (Out) Chrissie Seo ABBIE 350.1.13.10 it y of HOSPITAL 4.2.7.2.686 Marv as [phone] [facility] 019 [place] 2021-06-08 2021-06-08 Laboratory Only, Ang Db Test [facility] 1.2.8 40.114 [id number] Univers 09:00:37 09:18:23 Only Unknown, Attending Health 350.1.13.10 ity of [place] 4.2.7.2.686 [place] Brooks?Blea [phone] Pr dicshyla kney [address] [facility] Office Building 2021-06-08 2021-06-08 Outpatient R UNKNOWN, [facility] [id number] Univers 09:15:00 09:15:00 ATTENDING ity of [facility] 2021-05-08 2021-05-08 Pre Visit Geoff [facility] 1.2.840.114 [id number] Univers 00:00:00 00:00:00 Outreach Wonradhaful A Health 350.1.13.10 ity of [place] 4.2.7.2.686 Marv as Elisha [phone] Pr leonard [facility] 0[address] [place] Office Building One 2021-05-08 2021-05-08 Patient JELANI Huber 1.2.840.114 [id number] Univers 00:00:00 00:00:00 Outreach Leonardo LEIVA 350.1.13.10 i ty of [facility] 4.2.7.2.686 Marv as [phone] [facility] 082 [place] 2021-04-22 2021-04-22 Outpatient R BRIANNE [facility] [id number] Univers 15:45:00 15:45:00 PALOMA ity [facility] 2021-04-18 2021-04-18 Outpatient R [facility] [id number] Univers 09:00:00 09:00:00 ity of [facility] 2021-04-14 2021-04-14 Orders Doctor PALOMARES 1.2.840.114 [id number] Univers 00:00:00 00:00:00 Only Unassigned, ABBIE 350.1.13.10 ity of [place] [facility] 4.2.7.2.686 Marv as [phone] [facility] 009 [place] 2021-03-28 2021-03-28 Office Geoff [facility] 1.2.840.114 [id number] 13:28:28 14:25:53 Visit Wonradhaful A Health 350.1.13.10 [place] 4.2.7.2.686 Professio [phone] [address] One 2021-03-28 2021-03-28 Office [facility] 1.2.840.114 [id number] Univers 13:28:28 14:25:53 Visit Wondiful A Health 350.1.13.10 ity of [place] 4.2.7.2.686 Marv as Professio [phone] [address] One 2021-03-28 2021-03-28 [facility] [id number] Univers 14:00:00 14:00:00 WONDIFUL ity o f [facility] 2020-05-20 2020-05-20 Refill [facility] 1.2.840.114 [id number] Univers 00:00:00 00:00:00 Wondiful A Health 350.1.13.10 ity of [place] 4.2.7.2.686 Marv as Professio [phone] [address] One 2020-04-21 2020-04-21 Orders Doctor JELANI 1.2.840.114 [id number] Univers 00:00:00 00:00:00 Only Unassigned, ABBIE 350.1.13.10 ity of [place] [facility] 4.2.7.2.686 Marv as [phone] [address] 2020-03-25 2020-03-25 Outpatient R EMA [facility] [id number] Univers 11:00:00 11:00:00 MARLENY ity of [facility] 2020-02-13 2020-02-13 Telemedici [facility] 1.2.840.114 [id number] Univers 07:14:33 22:11:45 ne Visit Wondiful A [place] 350.1.13.10 ity of [place].2.7.2.686 [place] Profess[place] [phone] [address] 2020-02-13 2020-02-13 Outpatient R GEOFF [facility] [id number] Univers 09:00:00 09:00:00 WONDIFUL ity o f [facility] 2020-02-06 2020-02-06 Outpatient R GEOFF [facility] [id number] Univers 11:15:00 11:15:00 WONDIFUL ity o f [facility] 2020-02-06 2020-02-06 Telemedici [facility] 1.2.840.114 [id number] Univers 07:41:41 08:11:41 ne Visit Wondiful A [place] 350.1.13.10 ity of [place] 4.2.7.2.686 [place] [facility] [phone] [facility] 044 [facility] 2020-01-09 2020-01-09 Refill [facility] 1.2.840.114 [id number] Univers 00:00:00 00:00:00 Wondiful A Health 350.1.13.10 ity of [place] 4.2.7.2.686 Marv as Professio [phone] [address] Office Building One 2019-10-17 2019-10-17 [facility] 1.2.840.114 [id number] Univers 07:58:00 23:59:00 Encounter Zac Dodson 350.1.13.10 ity of [place] 4.2.7.2.686 [place] [phone] [facility] 806 [place] 2019-10-05 2019-10-05 Orders Doctor JELANI 1.2.840.114 [id number] Univers 00:00:00 00:00:00 Only Unassigned, ABBIE 350.1.13.10 ity of [place] [facility] 4.2.7.2.686 Marv as [phone] [facility] [address] 2019-06-12 2019-06-12 Telephone Anthony Tavarez 1.2.840.114 [id number] Univers 00:00:00 00:00:00 Wondiful A [place] 350.1.13.10 ity of [place] 4.2.7.2.686 [place] [phone] [facility] 086 [place] 2019-05-17 2019-05-17 Telephone Ema MTPATRIZIA 1.2.840.114 [id number] Univers 00:00:00 00:00:00 Marleny Huong 350.1.13.10 i ty of [place].2.7.2.686 [place] Profess[place] [phone] Pr dical nal [address] Building 2019-05-16 2019-05-16 [facility] 1.2.840.114 [id number] [facility] 08:15:24 23:59:00 Encounter Marleny Huong 350.1.13.10 ity of [place] 4.2.7.2.686 [place] [phone] [facility] [address] 2019-05-09 2019-05-09 Office Geoff [facility] 1.2.840.114 [id number] [facility] 10:34:56 11:15:23 [facility] 350.1.13.10 ity of [place] 4.2.7.2.686 Marv as Professio [phone] Pr leonard reeder [address] Office Building One 2018-06-16 2018-06-16 Outpatient R GEOFF [facility] [id number] [facility] 09:10:06 09:09:00 WONDIFUL ity o f [facility] Results This patient has no known results.
[2022-09-30 13:33] LABS: Urine Blood Negative (Negative); Urine Glucose Negative (Negative); Urine Protein Negative (Negative); Urine Specific Gravity <=1.005 (1.005-1.030); Urine pH 5.5 (5.0-7.0)
[2022-09-30 13:51] LABS: Urine Bacteria None Seen /HPF (<20); Urine RBC <5 /HPF (None Seen)
[2022-09-30] MEDS ORDERED: ONDANSETRON 4 MG/2 ML VIAL ONE (14:10)
[2022-09-30] MEDS ORDERED: NA CHLORIDE 0.9% 1,000 ML ONE (14:10)
[2022-09-30] MEDS ORDERED: MORPHINE 4 MG/ML SYR ONE (14:10)
[2022-09-30 14:22] LABS: Absolute Lymphocytes (CBC) 1.3 K/uL (0.7-4.9); Hematocrit 39.6 % (36.0-45.0); Lymphocytes % 20.5 % (15.3-44.8); MCV 91.9 fL (80-100); MPV 8.3 fL (7.6-11.3); RBC Red Blood Cell Count 4.31 M/uL (3.86-4.86)
[2022-09-30 14:40] LABS: Albumin 3.9 g/dL (3.4-5.0); Bilirubin Total 0.5 mg/dL (0.2-1.0); Potassium 4.5 mmol/L (3.5-5.1); Protein, Total 6.9 g/dL (6.4-8.2)
--- NOTE | 2022-09-30 15:12 | RAD REPORT ---
EXAM DESCRIPTION: CT - Abdomen Pelvis W Contrast - 09/30/2022 2:58 pm CLINICAL HISTORY: Abdominal pain COMPARISON: 2020 TECHNIQUE: Computed axial tomography of the abdomen pelvis was obtained. 100 cc Isovue-300 was admin istered intravenously. Oral contrast was not requested which limits evaluation of bowel and appendix All CT scans are performed using dose optimization technique as appropriate and may include automated exposure control or mA/KV adjustment according to patient size. FINDINGS: The liver, spleen, pancreas, and adrenals appear unremarkable. 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 Extrarenal pe lvis present. There is no evidence of diverticulitis. Normal appendix. 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 IMPRESSION: No acute abnormality is displayed.
--- NOTE | 2022-09-30 16:12 | ER ---
Nurse's Notes [facility] Name: Kelley Zapien Age: 72 yrs Sex: Female : 1950 Arrival Date: 09/30/2022 Time: 12:47 Bed 6 Private MD: KINA DON Diagnosis: Abdominal pain, Generalized Presentation: 09/30 13:17 Chief complaint: Patient states: she has left lower abdominal pain, and pain during ap3 urination for approx one week. patient also complains of low back pain. Coronavirus screen: At this time, the client does not indicate any symptoms associated with coronavirus-19. Ebola Screen: No symptoms or risks identified at this time. Initial Sepsis Screen: Does the patient meet any 2 criteria? No. Patient's initial sepsis screen is negative. Does the patient have a suspected source of infection? No. Patient's initial sepsis screen is negative. Risk Assessment: Do you want to hurt yourself or someone else? Patient reports no desire to harm self or others. Onset of symptoms was September 22, 2022. 13:17 Method Of Arrival: Ambulatory ap3 13:17 Acuity: CHARLIE 3 ap3 Triage Assessment: 13:18 General: Appears uncomfortable, Behavior is calm, cooperative. Pain: Complains of pain ap3 in left lower quadrant Pain radiates to low back area and left leg. Neuro: Level of Consciousness is awake, alert, obeys commands, Oriented to person, place, time, situation. GI: Patient currently denies nausea. : Reports pain with urination, urgency, urinary frequency. Historical: - Allergies: 13:18 No Known Allergies; ap3 - PMHx: 13:18 Hypertension; one kidney; ap3 - Immunization history:: Client reports receiving the 2nd dose of the Covid vaccine. - Social history:: Smoking status: Patient denies any tobacco usage or history of. Screenin:19 Abuse screen: Denies threats or abuse. Nutritional screening: No deficits noted. ap3 Tuberculosis screening: No symptoms or risk factors identified. 13:19 [facility] ED Fall Risk Assessment (Adult) History of falling in the last 3 months, mb9 including since admission No falls in past 3 months (0 pts) Confusion or Disorientation No (0 pts) Intoxicated or Sedated No (0 pts) Impaired Gait No (0 pts) Mobility Assist Device Used No (0 pt) Altered Elimination No (0 pt) Score/Fall Risk Level 0 - 2 = Low Risk Maintained a safe environment. Assessment: 13:34 General: Appears uncomfortable, Behavior is calm, cooperative, appropriate for age. mb9 Pain: Complains of pain in left leg and back and low back area and abdomen and left lower quadrant Pain currently is 10 out of 10 on a pain scale. Neuro: Level of Consciousness is awake, alert, obeys commands, Oriented to person, place, time, situation, Appropriate for age. Cardiovascular: Rhythm is regular. Respiratory: Airway is patent Respiratory effort is even, unlabored, Respiratory pattern is regular, symmetrical, Breath sounds are clear bilaterally. GI: Abdomen is flat, non-distended, Bowel sounds present X 4 quads. Abd is soft Abdomen is tender to palpation in left lower quadrant. : Urine is clear, Reports pain flank(s), in lower back since 1 week ago with urination, urgency, urinary frequency. 14:23 General: Appears uncomfortable, Behavior is calm, cooperative, appropriate for age. mb9 Neuro:. Cardiovascular:. Respiratory: Airway is patent Respiratory effort is even, unlabored, Respiratory pattern is regular, symmetrical. GI: Abdomen is flat, non-distended, Abd is soft Abdomen is tender to palpation in back and left lower quadrant. Derm: Skin is pink, warm \T\ dry. Musculoskeletal: Range of motion: intact in all extremities. 15:16 Reassessment: Patient states feeling better. Patient states symptoms have improved. mb9 Neuro: Level of Consciousness is awake, alert, obeys commands, Oriented to person, place, time, situation, Appropriate for age. Respiratory: Airway is patent. Derm: Skin is normal. 16:19 Reassessment: Patient denies pain at this time. Patient states feeling better. Patient mb9 states symptoms have improved. Neuro: Level of Consciousness is awake, alert, obeys commands. Respiratory: Airway is patent. Derm: Skin is pink, warm \T\ dry. Vital Signs: 13:17 BP 112 / 78; Pulse 77; Resp 17; Temp 97.9; Pulse Ox 98% ; Weight 54.43 kg; Height 4 ft. ap3 11 in. (149.86 cm); 14:25 BP 125 / 75; Pulse 78; Resp 16; Pulse Ox 97% on R/A; Pain 0/10; mb9 15:17 BP 119 / 69; Pulse 76; Resp 16; Pulse Ox 96% ; mb9 16:19 BP 120 / 70; Pulse 78; Resp 16; Pulse Ox 100% on R/A; Pain 0/10; mb9 13:17 Body Mass Index 24.24 (54.43 kg, 149.86 cm) ap3 ED Course: 12:47 Patient arrived in ED. mr 12:47 KINA DON is Private Physician. mr 13:07 [facility]C [facility]. kb 13:07 Oleg Martinez MD is Attending Physician. kb 13:18 Triage completed. ap3 13:19 Arm band placed on right wrist. ap3 13:19 Placed in gown. Bed in low position. Call light in reach. Side rails up X 1. mb9 13:23 Daniella Spencer, RN is Primary Nurse. mb9 13:34 Urine Microscopic Only Sent. mb9 14:15 Initial lab(s) drawn, by wi, sent to lab. Inserted saline lock: 20 gauge in left zm antecubital area, using aseptic technique. Blood collected. 14:15 CBC with Diff Sent. zm 14:15 CMP Sent. zm 14:15 Lipase Sent. zm 15:00 Abdomen In Process Unspecified. EDMS 16:19 No provider procedures requiring assistance completed. IV discontinued, intact, mb9 bleeding controlled, No redness/swelling at site. Pressure dressing applied. Administered Medications: 14:21 Drug: NS 0.9% 1000 ml Route: IV; Rate: 1 bolus; Site: left antecubital; mb9 14:21 Drug: Zofran (Ondansetron) 4 mg Route: IVP; Site: left antecubital; mb9 14:45 Follow up: Response: No adverse reaction mb9 14:21 Drug: morphine 4 mg Route: IVP; Infused Over: 4 mins; Site: left antecubital; mb9 14:45 Follow up: Response: No adverse reaction mb9 Medication: 13:20 VIS not applicable for this client. ap3 Outcome: 16:11 Discharge ordered by . kb 16:20 Discharged to home ambulatory. mb9 16:20 Condition: stable 16:20 Discharge instructions given to patient, Instructed on discharge instructions, follow up and referral plans. Demonstrated understanding of instructions, follow-up care, medications, Prescriptions given X 1. 16:20 Patient left the ED. mb9 Signatures: Dispatcher [employer] EDBetty Cuello, JAYA ESCOTO-Daniella Ackerman Amanda, RN RN [email or web address] Trina Dinh, Daniella Shoemaker, RN RN mb9
--- NOTE | 2022-09-30 16:12 | EDPHYS ---
Physician Documentation [facility] Name: Kelley Zapien Age: 72 yrs Sex: Female : 1950 Arrival Date: 09/30/2022 Time: 12:47 Bed 6 Private MD: KINA DON ED Physician Oleg Martinez HPI: 09/30 23:20 This 72 yrs old Female presents to ER via Ambulatory with complaints of kb Urinary Problem, Abdominal Pain, Leg Pain. 23:20 The patient has not recently seen a physician. kb 23:21 The patient presents with abdominal pain in the left upper quadrant, in the left lower kb quadrant. Onset: The symptoms/episode began/occurred 1 week(s) ago. The symptoms do not radiate. Associated signs and symptoms: Pertinent positives: dysuria. The symptoms are described as constant. Modifying factors: The symptoms are alleviated by nothing, the symptoms are aggravated by nothing. Severity of pain: At its worst the pain was moderate in the emergency department the pain is unchanged. The patient has not experienced similar symptoms in the past. Historical: - Allergies: 13:18 No Known Allergies; ap3 - PMHx: 13:18 Hypertension; one kidney; ap3 - Immunization history:: Client reports receiving the 2nd dose of the Covid vaccine. - Social history:: Smoking status: Patient denies any tobacco usage or history of. ROS: 23:21 Constitutional: Negative for fever, chills, and weight loss. kb 23:21 Abdomen/GI: Positive for abdominal pain, Negative for nausea, vomiting, and diarrhea. 23:21 : Positive for urinary symptoms, burning with urination. 23:21 All other systems are negative. Exam: 23:21 Constitutional: This is a well developed, well nourished patient who is awake, alert, kb and in no acute distress. Head/Face: Normocephalic, atraumatic. ENT: Moist Mucous membranes Cardiovascular: Regular rate and rhythm with a normal S1 and S2. No gallops, murmurs, or rubs. No pulse deficits. Respiratory: Respirations even and unlabored. No increased work of breathing. Talking in full sentences Skin: Warm, dry with normal turgor. Normal color. MS/ Extremity: Pulses equal, no cyanosis. Neurovascular intact. Full, normal range of motion. Neuro: Awake and alert, GCS 15, oriented to person, place, time, and situation. Moves all extremities. Normal gait. Psych: Awake, alert, with orientation to person, place and time. Behavior, mood, and affect are within normal limits. 23:21 Abdomen/GI: Inspection: abdomen appears normal, Bowel sounds: normal, Palpation: soft, in all quadrants, moderate abdominal tenderness, in the left upper quadrant and left lower quadrant. Vital Signs: 13:17 BP 112 / 78; Pulse 77; Resp 17; Temp 97.9; Pulse Ox 98% ; Weight 54.43 kg; Height 4 ft. ap3 11 in. (149.86 cm); 14:25 BP 125 / 75; Pulse 78; Resp 16; Pulse Ox 97% on R/A; Pain 0/10; mb9 15:17 BP 119 / 69; Pulse 76; Resp 16; Pulse Ox 96% ; mb9 16:19 BP 120 / 70; Pulse 78; Resp 16; Pulse Ox 100% on R/A; Pain 0/10; mb9 13:17 Body Mass Index 24.24 (54.43 kg, 149.86 cm) ap3 MDM: 13:21 Patient medically screened. kb 23:20 Data reviewed: vital signs, nurses notes. Data interpreted: Pulse oximetry: on room air kb is 100 %. Interpretation: normal. Counseling: I had a detailed discussion with the patient and/or guardian regarding: the historical points, exam findings, and any diagnostic results supporting the discharge/admit diagnosis, lab results, radiology results, the need for outpatient follow up, a family practitioner, to return to the emergency department if symptoms worsen or persist or if there are any questions or concerns that arise at home. 23:20 Differential diagnosis: diverticulitis, Pyelonephritis, Ureterolithiasis, urinary tract kb infection. 09/30 13:21 Order name: Urine Microscopic Only; Complete Time: 13:53 kb 09/30 13:33 Order name: Urine Dipstick-Ancillary; Complete Time: 13:44 EDMS 09/30 13:44 Order name: CBC with Diff; Complete Time: 14:41 kb 09/30 13:44 Order name: CMP; Complete Time: 14:41 kb 09/30 13:44 Order name: Lipase; Complete Time: 14:41 kb 09/30 13:44 Order name: CT Abd/Pelvis - IV Contrast Only kb 09/30 13:21 Order name: Urine Dipstick-Ancillary (obtain specimen); Complete Time: 13:34 kb 09/30 13:44 Order name: IV Saline Lock; Complete Time: 14:15 kb 09/30 13:44 Order name: Labs collected and sent; Complete Time: 14:15 kb 09/30 13:48 Order name: Abdomen ; Complete Time: 15:16 EDMS Administered Medications: 14:21 Drug: NS 0.9% 1000 ml Route: IV; Rate: 1 bolus; Site: left antecubital; mb9 14:21 Drug: Zofran (Ondansetron) 4 mg Route: IVP; Site: left antecubital; mb9 14:45 Follow up: Response: No adverse reaction mb9 14:21 Drug: morphine 4 mg Route: IVP; Infused Over: 4 mins; Site: left antecubital; mb9 14:45 Follow up: Response: No adverse reaction mb9 Disposition Summary: 09/30/22 16:11 Discharge Ordered Location: Home kb Condition: Stable kb Diagnosis - Abdominal pain, Generalized kb Followup: kb - With: Emergency Department - When: As needed - Reason: Worsening of condition Followup: kb - With: Private Physician - When: 2 - 3 days - Reason: Recheck today's complaints, Continuance of care, Re-evaluation by your physician Discharge Instructions: - Discharge Summary Sheet kb - Abdominal Pain, Adult, [id number] kb Forms: - Medication Reconciliation Form kb - Thank You Letter kb - Antibiotic Education kb - Prescription Opioid Use kb Prescriptions: - Diclofenac Sodium 75 mg Oral tablet,delayed release (DR/EC) - take 1 tablet by ORAL route 2 times per day As needed; 30 tablet; Refills: 0, kb Product Selection Permitted Signatures: Dispatcher [employer] Betty Castillo FNP-C FNP-Ckb Prokisch, Amanda RN RN ap3 Daniella Spencer RN RN mb9
[2022-09-30 16:33] VITALS: TEMP 97.9
[2022-09-30 16:50] VITALS: BP 120/70; O2SAT 100
== END 2022-09-30 16:20 | disposition home or self-care (01) ==
LOC: ER 12:41
DX: R10.84 Generalized abdominal pain (principal)
CPT/HCPCS: 85025; 36415; 83690; 80053; 74177; 96375; 96374; 99284; Q9967; J7030; J2405; 81003; 81015

== ENCOUNTER 2024-12-08 19:01 | Emergency (ER) | payer OTHER ==
--- OUTSIDE RECORDS SUMMARY | 2024-12-08 19:05 | XMS REPORT | Continuity of Care Document ---
Author Name Unknown Address [address] [facility] [address] [place] [address] [facility] [place] Address [address] [facility] [address] [place] [address] Care Team Providers Care Starch Crab Name Role Phone Kina Horne Primary Care Physician [phone] KINA THIBODEAUX Attending Clinician Unavailable Doctor Unassigned, Bow Attending Clinician U navailable Anebia SALES DESIGNER, Kina Attending Clinician [phone] Lab, Ang - Db Attending Clinician Unavailable Carlos Eduardo ESCOTO Kina Attending Clinician [phone] Lab, Ang - Db Attending Clinician Unavailable Doctor Unassigned, Bow Attending Clinician U navailable RADIOLOGY Attending Clinician Unavailable Radiology Attending Clinician Unavailable Aniya Alvarez RN Attending Clinician UnavailDonnie Ding Attending Clinician [phone] DONNIE RENTERIA Attending Clinician Unavailable MARILUZ PICHARDO Attending Clinician UnavailMariluz Denton DO Attending Clinician [phone] Sofya Dominguez MA Attending Clinician Unavaillorrie Tavarez MD, Jailene Hansen Attending Clinician + [phone] CLAUDE URBANO Attending Clinician Unavailable Claude Urbano DO Attending Clinician [phone] JAILENE TAVAREZ Attending Clinician Unavailtyrone Deshpande RN, Chrissie Seo Attending Clinician UnavailBrian Fernandez Test Attending Clinician Unavaillorrie andres Unknown, Attending Attending Clinician UnavailAlmaz Maravilla Attending Clinician UNKNOWN, ATTENDING Attending Clinician Unavailab Leonardo Lazar Attending Clinician Unavailable PALOMA DECKER Attending Clinician UnavailMARGY Leon Attending Clinician Unavailable Cb SAMPSON, Zac M Attending Clinician [phone] Margy Greer PA-C Attending Clinician [phone] KINA THIBODEAUX Admitting Clinician Unavailable JAILENE TAVAREZ Admitting Clinician Unavaila MARILUZ Hinojosa Admitting Clinician Unavailab CLAUDE Cramer Admitting Clinician Unavailable SELF REFERRED, FACILITY NPI Admitting Clinician Unavailable Payers Payer Name Policy Type Policy Number Effective Date Expirati on Date Source [facility] [id number] 2019 00:00:00 Problems Condition Name Condition Details Condition Category Status Onset Date Resolution Date Last Treatment Date Treating Clinician Comments Source Wheezing Wheezing Disease Active 2021[facility]09 [facility] Bronchitis Bronchitis Disease Active 2021-09 [facility] Primary cough headache Primary cough headache Disease Active 2021-09 00:00: 00 [facility] Nausea Nausea Disease Active 2021-09 00:00: 00 [facility] Atopic dermatitis Atopic dermatitis Disease Active 03-19 00:00: 00 [facility] Osteoporos is Osteoporos is Disease Active 06-20 00:00: 00 [facility] Spondylosi s, lumbosacra l Spondylosi s, lumbosacra l Disease Active 04-27 00:00: 00 [facility] Low back pain radiating to lower extremity Low back pain radiating to lower extremity Disease Active 04-27 00:00: 00 [facility] Spondyloli sthesis at L5-S1 level Spondyloli sthesis at L5-S1 level Disease Active 04-27 00:00: 00 [facility] Spondyloly sis of lumbar region Spondyloly sis of lumbar region Disease Active 04-27 00:00: 00 [facility] Pelvic pain Pelvic pain Disease Active 8 00:00: 00 [facility] Fluid in endometria l cavity Fluid in endometria l cavity Disease Active 8 00:00: 00 [facility] Tricompart ment osteoarthr itis of right knee Tricompart ment osteoarthr itis of right knee Disease Active 01-24 00:00: 00 [facility] Chronic pain of right knee Chronic pain of right knee Disease Active 01-24 00:00: 00 [facility] Hyperchole sterolemia Hyperchole sterolemia Disease Active 01-17 00:00: 00 [facility] Breast pain, left Breast pain, left Disease Active 01-10 00:00: 00 [facility] Left-sided chest pain Left-sided chest pain Disease Active 01-10 00:00: 00 [facility] 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 Disease Active 05-03 00:00: 00 [facility] Blind left eye Blind left eye Disease Active [facility] Hypertensi on Hypertensi on Disease Active [facility] Prediabete s Prediabete s Disease Active [facility] Anxiety and depression Anxiety and depression Disease Resolve d 05-03 00:00: 00 2018-01-10 00:00:00 2018-01-10 03:01:24 [facility] Abnormalit y of gait Abnormalit y of gait Disease Resolve d 06-02 00:00: 00 2018-01-10 00:00:00 2018-01-10 03:01:27 [facility] Chest pain Chest pain Disease Resolve d 06-02 00:00: 00 2015-05-03 00:00:00 2022-04-12 00:09:27 [facility] Allergies, Adverse Reactions, Alerts Allergy Name Allergy Type Status Severity Reaction(s) Onset Date Inactive Date Treating Clinician Comments Source NO KNOWN ALLERGIE S Drug Class Active [facility] Social History Social Habit Start Date Stop Date Quantity Comments Source [facility] History of tobacco use Current smoker [facility] History of Social function 2023-10-29 00:00:00 2023-10-29 00:00:00 [facility] Alcoholic beverage intake 2023-10-29 00:00:00 2023-10-29 00:00:00 0 /d [facility] Alcohol intake 2023-10-29 00:00:00 2023-10-29 00:00:00 0 /d [facility] Exposure to SARS-CoV-2 (event) 2023-01-02 00:00:00 2023-01-12 08:55:00 Not sure [facility] Tobacco use and exposure 2021-03-28 00:00:00 2021-03-28 00:00:00 Smokeless tobacco non-user [facility] Sex assigned at 1950 00:00:00 1950 00:00:00 [facility] Smoking Status Start Date Stop Date Source Ex-smoker 2021-03-28 00:00:00 2021-03-28 00:00:00 [facility] Medications Ordered Medication Name Filled Medication Name Start Date Stop Date Current Medication? Ordering Clinician Indication Dosage Frequency Signature (SIG) Comments Components Source lisinopriL 10 mg tablet 2023-09 00:00: 00 Yes [id number] 10mg Take 1 tablet by mouth daily. [facility] diclofenac 75 mg EC tablet 2023-09 00:00: 00 Yes [id number] 1 tab PO daily PRN- use sparingly due to side effects [facility] atorvastati n 10 mg tablet 2023-09 00:00: 00 Yes [id number] 10mg Take 1 tablet by mouth at bedtime. [facility] busPIRone 10 mg tablet 2023-09 00:00: 00 Yes [id number] 10mg Take 1 tablet by mouth 2 (two) times daily. [facility] lisinopriL 10 mg tablet 2023-09 00:00: 00 08-29 00:00 :00 No [id number] 10mg Take 1 tablet by mouth daily. [facility] atorvastati n 10 mg tablet 2023-09 0-09 00:00: 00 07-20 00:00 :00 No [id number] 10mg Take 1 tablet by mouth at bedtime. [facility] lisinopriL 10 mg tablet 9- 00:00: 00 07-20 00:00 :00 No [id number] 10mg Take 1 tablet by mouth daily. [facility] lisinopriL 10 mg tablet 9- 00:00: 00 06-02 00:00 :00 No [id number] 10mg Take 1 tablet by mouth daily. [facility] cephALEXin (KEFLEX) 500 mg capsule 2- 00:00: 00 07-20 00:00 :00 No [id number] 500mg Take 1 capsule by mouth 3 (three) times daily. [facility] atorvastati n 10 mg tablet 2- 00:00: 00 07-05 00:00 :00 No [id number] 10mg Take 1 tablet by mouth at bedtime. [facility] lisinopriL 10 mg tablet 2- 00:00: 00 05-30 00:00 :00 No [id number] 10mg Take 1 tablet by mouth daily. [facility] lisinopriL 10 mg tablet 1- 00:00: 00 10-29 00:00 :00 No [id number] 10mg Take 1 tablet by mouth daily. [facility] busPIRone 10 mg tablet 1-02 00:00: 00 07-20 00:00 :00 No [id number] 10mg Take 1 tablet by mouth 2 (two) times daily. NEEDS OFFICE VISIT BEFORE NEXT REFILL [facility] lisinopriL 10 mg tablet 2022-09 2-26 00:00: 00 10-27 00:00 :00 No [id number] 10mg Take 1 tablet by mouth daily. [facility] topiramate (TOPAMAX) 25 mg tablet 2023-0 8-11 00:00: 00 Yes [id number] 25mg Take 1 tablet by mouth daily. [facility] topiramate (TOPAMAX) 25 mg tablet 6-16 00:00: 00 Yes [id number] 25mg Take 1 tablet by mouth daily. [facility] atorvastati n 10 mg tablet 4-18 00:00: 00 10-29 00:00 :00 No [id number] 10mg Take 1 tablet by mouth at bedtime. [facility] busPIRone 10 mg tablet 4-18 00:00: 00 09-22 00:00 :00 No [id number] 10mg Take 1 tablet by mouth 2 (two) times daily. [facility] lisinopriL 10 mg tablet 18 00:00: 00 09-21 00:00 :00 No [id number] 10mg Take 1 tablet by mouth daily. [facility] topiramate (TOPAMAX) 25 mg tablet 18 00:00: 00 03-12 00:00 :00 No [id number] 25mg Take 1 tablet by mouth daily. [facility] lisinopriL 10 mg tablet 1-03 00:00: 00 01-12 00:00 :00 No [id number] 10mg Take 1 tablet by mouth daily. [facility] ibuprofen 600 mg tablet 2021-09 2- 00:00: 00 09-15 05:59 :00 No [id number] 600mg Take 1 tablet by mouth every 6 (six) hours as needed for Temp > 38.5 C for up to 14 days. [facility] ondansetron (ZOFRAN) 4 mg tablet 2021-09 2- 00:00: 00 09-11 05:59 :00 No [id number] 4mg Take 1 tablet by mouth every 8 (eight) hours as needed for Nausea and Vomiting (N/V) for up to 10 days. [facility] amoxicillin -clavulanat e (AUGMENTIN) 875-125 mg per tablet 2021-09 2-05 00:00: 00 09-08 05:59 :00 No [id number] 1{tbl} Take 1 tablet by mouth 2 (two) times daily for 7 days. [facility] benzonatate 200 mg capsule 2021-09 2- 00:00: 00 09-08 05:59 :00 No [id number] 200mg Take 1 capsule by mouth 3 (three) times daily as needed for Cough for up to 7 days. [facility] methylPREDN ISolone (MEDROL, GEETA,) 4 mg tablets 2021-09 2 00:00: 00 09-06 05:59 :00 No [id number] Take by mouth SEE-INSTRU CTIONS for 5 days. follow package directions [facility] albuterol sulfate (PROAIR DIGIHALER) 90 mcg/actuati on aebs 2021-09 12:16: 54 08-29 00:00 :00 No Inhale. [facility] albuterol 90 mcg/actuati on inhaler 2021-09 00:00: 00 Yes [id number] 2{puff} Inhale 2 Puffs every 4 (four) hours as needed for Wheezing or Shortness of Breath. [facility] atorvastati n 10 mg tablet 04-21 00:00: 00 01-12 00:00 :00 No [id number] 10mg Take 1 tablet by mouth at bedtime. [facility] busPIRone 10 mg tablet 04-21 00:00: 00 01-12 00:00 :00 No [id number] 10mg Take 1 tablet by mouth 2 (two) times daily. [facility] lisinopriL 10 mg tablet 04-21 00:00: 00 09-29 00:00 :00 No [id number] 10mg Take 1 tablet by mouth daily. [facility] calcium/mag nesium/zinc (CALCIUM-MA GNESUIUM-ZI NC) 333-133-5 mg Tab - 00:00: 00 Yes [id number] 1{each} Take 1 Each by mouth daily. [facility] calcium/mag nesium/zinc (CALCIUM-MA GNESUIUM-ZI NC) 333-133-5 mg Tab -05 00:00: 00 Yes [id number] 1{each} Take 1 Each by mouth daily. [facility] chlorphenir amine 4 mg tablet - 00:00: 00 07-20 00:00 :00 No [id number] 4mg Take 1 tablet by mouth every 6 (six) hours as needed for Allergies or Runny nose. [facility] benzonatate 100 mg capsule 01-29 00:00: 00 08-31 00:00 :00 No [id number] 100mg Take 1 capsule by mouth 3 (three) times daily as needed for Cough. [facility] atorvastati n 10 mg tablet 01-08 00:00: 00 04-21 00:00 :00 No [id number] 10mg Take 1 tablet by mouth at bedtime. [facility] busPIRone 10 mg tablet -14 00:00: 00 04-21 00:00 :00 No [id number] 10mg Take 1 tablet by mouth 2 (two) times daily. [facility] lisinopriL 10 mg tablet 14 00:00: 00 04-21 00:00 :00 No [id number] 10mg Take 1 tablet by mouth daily. [facility] albuterol sulfate (PROAIR DIGIHALER) 90 mcg/actuati on aebs 03-28 14:15: 45 Yes Inhale. [facility] DEXILANT 60 mg capsule 03-27 00:00: 00 Yes 60mg Take 1 capsule by mouth daily. [facility] Immunizations Ordered Immunization Name Filled Immunization Name Date Status Comments Source SARS-COV-2 COVID 19 THIAGO SUCROSE VACCINE 12+, 0.3 ML (30 MCG), IM PFIZER (YOUSIF TOP) 2023-10-29 00:00:00 Completed [facility] Zoster Vaccine Recombinant 2022-03-04 00:00:00 Completed Zoster(Zostavax)(Sh ingles) 2022-01-06 00:00:00 Completed [facility] Zoster Vaccine Recombinant 2022-01-06 00:00:00 Completed [facility] SARS-COV-2 COVID-19 MODERNA 12+ YRS VACCINE 2021-07-28 00:00:00 Completed SARS-COV-2 COVID-19 MODERNA 12+ YRS VACCINE 2020-12-26 00:00:00 Completed SARS-COV-2 COVID-19 MODERNA 12+ YRS VACCINE 2020-10-28 00:00:00 Completed [facility] Pneumococcal Polysaccharide, PPSV23 (PNEUMOVAX) 2018-11-29 00:00:00 Completed [facility] Pneumococcal 13 Conjugate, PCV13 (Prevnar 13) 2018-06-09 00:00:00 Completed [facility] TDAP 2015-05-02 00:00:00 Completed [facility] Influenza Virus Vaccine 2007-10-14 00:00:00 Completed [facility] Vital Signs Vital Name Observation Time Observation Value Comments S ource Systolic blood pressure 2024-07-20 15:21:00 133 mm[Hg] [facility] Diastolic blood pressure 2024-07-20 15:21:00 77 mm[Hg] [facility] Heart rate 2024-07-20 15:21:00 82 /min [facility] Body temperature 2024-07-20 15:21:00 36.17 Mickie [facility] Respiratory rate 2024-07-20 15:21:00 18 /min [facility] Body height 2024-07-20 15:21:[address] [facility] Body weight 2024-07-20 15:21:[address] [facility] BMI 2024-07-20 15:21:00 24.92 kg/m2 [facility] Oxygen saturation in Arterial blood by Pulse oximetry 2024-07-20 15:21:00 97 /min [facility] Systolic blood pressure 2023-10-29 14:18:00 111 mm[Hg] [facility] Diastolic blood pressure 2023-10-29 14:18:00 73 mm[Hg] [facility] Heart rate 2023-10-29 14:14:00 80 /min [facility] height 2023-10-29 14:14:00 149.9 cm Univ [facility] Body weight 2023-10-29 14:14:00 55.883 kg Univ [facility] BMI 2023-10-29 14:14:00 24.88 kg/m2 Univ [facility] Oxygen saturation in Arterial blood by Pulse oximetry 2023-10-29 14:14:00 97 /min [facility] Systolic blood pressure 2023-01-12 14:34:00 113 mm[Hg] [facility] Diastolic blood pressure 2023-01-12 14:34:00 69 mm[Hg] [facility] Heart rate 2023-01-12 14:34:00 70 /min Unive [facility] Body height 2023-01-12 14:34:00 149.9 cm Univ [facility] Body weight 2023-01-12 14:34:00 58.333 kg Univ [facility] BMI 2023-01-12 14:34:00 25.97 kg/m2 Univ [facility] Oxygen saturation in Arterial blood by Pulse oximetry 2023-01-12 14:34:00 99 /min [facility] Systolic blood pressure 2022-08-31 20:16:00 137 mm[Hg] [facility] Diastolic blood pressure 2022-08-31 20:16:00 80 mm[Hg] [facility] Heart rate 2022-08-31 20:16:00 107 /min Unive [facility] Body temperature 2022-08-31 20:16:00 36.72 Mickie [facility] Body height 2022-08-31 20:16:00 149.9 cm Univ [facility] Body weight 2022-08-31 20:16:00 56.7 kg Univ [facility] BMI 2022-08-31 20:16:00 25.25 kg/m2 Univ [facility] Oxygen saturation in Arterial blood by Pulse oximetry 2022-08-31 20:16:00 95 /min [facility] Systolic blood pressure 2022-08-29 18:12:00 157 mm[Hg] [facility] Diastolic blood pressure 2022-08-29 18:12:00 82 mm[Hg] [facility] Heart rate 2022-08-29 18:12:00 122 /min Unive [facility] Body temperature 2022-08-29 18:12:00 37.28 Mickie [facility] Respiratory rate 2022-08-29 18:12:00 19 /min [facility] Body height 2022-08-29 18:12:00 157.5 cm Univ [facility] Body weight 2022-08-29 18:12:[address] [facility] BMI 2022-08-29 18:12:00 22.86 kg/m2 [facility] Oxygen saturation in Arterial blood by Pulse oximetry 2022-08-29 18:12:00 98 /min [facility] Systolic blood pressure 2022-04-21 13:44:00 124 mm[Hg] [facility] Diastolic blood pressure 2022-04-21 13:44:00 74 mm[Hg] [facility] Heart rate 2022-04-21 13:44:00 83 /min Unive [facility] Body height 2022-04-21 13:44:[address] [facility] Body weight 2022-04-21 13:44:[address] [facility] BMI 2022-04-21 13:44:00 26.31 kg/m2 [facility] Oxygen saturation in Arterial blood by Pulse oximetry 2022-04-21 13:44:00 97 /min [facility] Procedures Procedure Date / Time Performed Performing Clinician Source REFERRAL- REQUEST/RESPONSE 2024-03-28 14:22:34 Doctor Unassigned, Bow [facility] BI SCREENING TOMOSYNTHESIS BILATERAL 2024-02-24 17:19:11 Carlos Eduardo Kina [facility] THYROID STIMULATING HORMONE 2023-10-29 14:57:00 Carlos Eduardo Kina [facility] LIPID PANEL ([id number])(TOTAL CHOLESTEROL, TRIGLYCERIDES, HDL) 2023-10-29 14:57:00 [facility] GLYCOSYL[facility] HEMOGLOBIN (A1C) 2023-10-29 14:57:00 Carlos Eduardo [facility] POCT URINALYSIS 2023-10-29 14:50:00 Kina Thibodeaux [facility] SARS-COV-2 COVID 19 THIAGO SUCROSE VACCINE 12+, , 0.3 ML (30 MCG), IM PFIZER (YOUSIF TOP) 2023-10-29 14:43:39 [facility] 2023-10-29 13:50:23 Docto r Unassigned, Bow [facility] COMP. METABOLIC PANEL ([id number]) 2023-01-12 15:16:00 Carlos Eduardo [facility] SEDIMENTATION RATE 2023-01-12 15:16:00 Carlos Eduardo [facility] CBC WITH DIFF 2023-01-12 15:16:00 Carlos Eduardo [facility] URINALYSIS 2023-01-12 15:16:00 [facility] URINE CULTURE 2023-01-12 15:16:00 Carlos Eduardo Kina [facility] CONSENT/REFUSAL FOR DIAGNOSIS AND TREATMENT 2022-11-23 15:35:46 Doctor Unassigned, Bow [facility] ASSIGNMENT OF BENEFITS 2022-11-23 15:35:03 Docto r Unassigned, Bow [facility] XR CHEST 1 VW 2022-08-29 18:32:00 Mariluz Pichardo [facility] RAPID INFLUENZA A/B 2022-08-29 18:18:00 Scarlett Pichardo ra [facility] CONSENT/REFUSAL FOR DIAGNOSIS AND TREATMENT 2022-08-29 18:09:17 Doctor Unassigned, Bow [facility] EXTERNAL PROVIDER RECORDS 2022-07-15 05:01:00 Do ctor Unassigned, Bow [facility] INSURANCE CORRESPONDENCE 2022-05-23 05:01:00 Doc tor Unassigned, Bow [facility] Encounters Start Date/Time End Date/Time Encounter Type Admission Type Attending Clinicians Care Facility Care Department Encounter ID Source 2024-03-28 00:00:00 2024-11-11 07:23:49 Orders Only Doctor Unassigned, Bow Doctor Unassigned, Bow [facility] ([facility]) [id number] 350.1.13.10 4.2.7.2.686 [id number] [facility] 2024-08-29 00:00:00 2024-08-30 09:25:18 RefKina Bailey [facility] 1.284.114 350.1.13.10 4.2.7.2.686 [id number] [facility] 2024-07-20 12:30:00 2024-07-20 12:30:00 [employer] Worker Visit Lab, Ang - Kina Bazan Lab, Ang - [facility] 1.84.114 350.1.13.10 4.2.7.2.686 [id number] [facility] 2024-07-20 10:30:00 2024-07-20 10:47:15 Outpatient R KINA THIBODEAUX [facility] [id number] [facility] 2024-07-20 10:30:00 2024-07-20 10:47:15 Office Visit Tayla ThibodeauxFormerly [facility] 1.84.114 350.1.13.10 4.2.7.2.686 [id number] [facility] 2024-07-05 00:00:00 2024-07-05 11:46:53 Refill Nazia Thibodeauxa [facility] 1.284.114 350.1.13.10 4.2.7.2.686 [id number] [facility] 2024-06-02 00:00:00 2024-06-02 17:05:32 Refill Tayla ThibodeauxFormerly [facility] 1.2.840.114 350.1.13.10 4.2.7.2.686 [id number] [facility] 2024-05-30 00:00:00 2024-05-30 10:36:05 [facility] 1.2.840.114 350.1.13.10 4.2.7.2.686 [id number] [facility] 2024-04-28 08:30:00 2024-04-28 08:30:00 Outpatient R KINA THIBODEAUX [facility] [id number] [facility] 2024-02-24 11:38:56 2024-02-24 23:59:00 Outpatient R KINA THIBODEAUX [facility] [id number] [facility] 2024-02-24 11:38:56 2024-02-24 23:59:00 Hospital Encounter Kina Thibodeaux [facility] 1.2.840.114 350.1.13.10 4.2.7.2.686 [id number] [facility] 2024-01-18 00:00:00 2024-01-18 00:00:00 Telephone Nazia ThibodeauxFormerly [facility] 1.2.840.114 350.1.13.10 4.2.7.2.686 [id number] [facility] 2023-11-15 00:00:00 2023-11-15 00:00:00 Outpatient R KINA THIBODEAUX [facility] [id number] [facility] 2023-10-29 09:15:00 2023-10-29 09:15:00 [employer] Worker Visit Lab, Brian - Jacob Tayla ThibodeauxFormerly [facility] 1..114 350.1.13.10 4.2.7.2.686 [id number] [facility] 2023-10-29 08:00:00 2023-10-29 08:49:50 Outpatient R KINA THIBODEAUX [facility] [id number] [facility] 2023-10-29 08:00:00 2023-10-29 08:49:50 [facility] 1.114 350.1.13.10 4.2.7.2.686 [id number] [facility] 2023-10-29 00:00:00 2023-10-29 00:00:00 Orders Only Doctor Unassigned, Bow [facility] 1..114 350.1.13.10 4.2.7.2.686 [id number] [facility] 2023-10-27 00:00:00 2023-10-27 00:00:00 [facility] 1.84.114 350.1.13.10 4.2.7.2.686 [id number] [facility] 2023-09-22 10:00:00 2023-09-22 10:00:00 Outpatient R [facility] [id number] [facility] 2023-09-21 00:00:00 2023-09-21 00:00:00 Refill Tayla ThibodeauxFormerly [facility] 1.84114 350.1.13.10 4.2.7.2.686 [id number] [facility] 2023-09-21 00:00:00 2023-09-21 00:00:00 Telephone [facility] 1..840.114 350.1.13.10 4.2.7.2.686 [id number] [facility] 2023-05-07 00:00:00 2023-05-07 00:00:00 [facility] 1..840.114 350.1.13.10 4.2.7.2.686 [id number] [facility] 2023-03-10 00:00:00 2023-03-10 00:00:00 [facility] [facility] 1.840.114 350.1.13.10 4.2.7.2.686 [id number] [id number] [facility] 2023-01-12 10:09:12 2023-01-12 23:59:00 Outpatient R KINA THIBODEAUX [facility] [id number] [facility] 2023-01-12 09:30:00 2023-01-12 10:41:50 [facility] 1..840.114 350.1.13.10 4.2.7.2.686 [id number] [facility] 2023-01-12 10:00:00 2023-01-12 10:15:00 [employer] Worker Visit Lab, Brian James Tayla ThibodeauxFormerly [facility] [place]?[facility] 1..840.114 350.1.13.10 4.2.7.2.686 [id number] [facility] 2022-12-31 14:30:00 2022-12-31 14:30:00 Outpatient R KINA THIBODEAUX [facility] [id number] [facility] 2022-11-23 09:37:29 2022-11-23 23:59:00 Outpatient R RADIOLOGY [facility] [id number] [facility] 2022-11-23 09:37:29 2022-11-23 23:59:00 Hospital Encounter Radiology [facility] 1.840.114 350.1.13.10 4.2.7.2.686 [id number] [facility] 2022-11-16 00:00:00 2022-11-16 00:00:00 Case Management Aniya Alvarez IVANA AUSTIN 1..840.114 350.1.13.10 4.2.7.2.686 [id number] [facility] 2022-11-05 00:00:00 2022-11-05 00:00:00 Case Management Aniya Alvarez JARRODVinny IVANA AUSTIN 1..840.114 350.1.13.10 4.2.7.2.686 [id number] [facility] 2022-10-27 09:00:00 2022-10-27 09:00:00 Outpatient R KINA THIBODEAUX [facility] [id number] [facility] 2022-10-26 11:30:00 2022-10-26 11:30:00 Outpatient R KINA THIBODEAUX [facility] [id number] [facility] 2022-10-06 09:30:00 2022-10-06 09:30:00 Outpatient R BEVERLYBIATAYLAKINA [facility] [id number] [facility] 2022-09-29 00:00:00 2022-09-29 00:00:00 Telephone Kina Thibodeaux [facility] 1..840.114 350.1.13.10 4.2.7.2.686 [id number] 044 [id number] [facility] 2022-09-10 00:00:00 2022-09-10 00:00:00 Refill Donnie Renteria [facility] 1.2.840.114 350.1.13.10 4.2.7.2.686 [id number] [facility] 2022-08-31 14:00:00 2022-08-31 14:30:00 Office Visit Donnie Renteria [facility] 1.20.114 350.1.13.10 4.2.7.2.686 [id number] [facility] 2022-08-31 14:00:00 2022-08-31 14:00:00 Outpatient R DARLINGDONNIE Hansen [facility] [id number] [facility] 2022-08-29 12:19:00 2022-08-29 14:20:00 Emergency X MARILUZ PICHARDO [facility] [id number] [facility] 2022-08-29 12:19:00 2022-08-29 14:20:00 Emergency Mariluz Pichardo [facility] 1.840.114 350.1.13.10 4.2.7.2.686 [id number] [facility] 2022-07-15 00:00:00 2022-07-15 00:00:00 Orders Only Doctor Unassigned, Bow [facility] 1.840.114 350.1.13.10 4.2.7.2.686 [id number] [id number] [facility] 2022-05-23 00:00:00 2022-05-23 00:00:00 Orders Only Doctor Unassigned, Bow [facility] 1.2840.114 350.1.13.10 4.2.7.2.686 [id number] [facility] 2022-05-20 00:00:00 2022-05-20 00:00:00 Case Management Sofya Dominguez 1..114 350.1.13.10 4.2.7.2.686 [id number] [facility] 2022-04-21 09:33:44 2022-04-21 23:59:00 Outpatient R KINA THIBODEAUX [facility] [id number] [facility] 2022-04-21 09:30:00 2022-04-21 09:45:00 [employer] Worker Visit Lab, Brian [facility] 1.84.114 350.1.13.10 4.2.7.2.686 [id number] [facility] 2022-04-21 08:30:00 2022-04-21 09:29:49 Outpatient R KINA THIBODEAUX [facility] [id number] [facility] 2022-04-21 08:30:00 2022-04-21 09:29:49 Office Visit [facility] 1.84.114 350.1.13.10 4.2.7.2.686 [id number] [id number] [facility] 2022-04-20 00:00:00 2022-04-20 00:00:00 Abstract Carlos EduardoTaylaKinaYadkin [facility] Hospital[facility] 1.84.114 350.1.13.10 4.2.7.2.686 [id number] [facility] 2022-04-10 00:00:00 2022-04-10 00:00:00 Telephone Jailene Tavarez [facility] 1.840.114 350.1.13.10 4.2.7.2.686 [id number] [facility] 2022-01-29 10:20:00 2022-01-29 13:12:00 Emergency X CLAUDE URBANO [facility] E[facility] [id number] [facility] 2022-01-29 10:20:00 2022-01-29 13:12:00 Emergency Claude Urbano [facility] 1.2840.114 350.1.13.10 4.2.7.2.686 [id number] [facility] 2022-01-07 00:00:00 2022-01-07 00:00:00 Refill [place] Jayjayjamarjermaine Hansen [facility] BUILD[facility] 1.84114 350.1.13.10 4.2.7.2.686 [id number] [facility] 2021-12-05 07:37:03 2021-12-05 23:59:00 Outpatient R DAYSIJAYJAY MENDOZAJERMAINE [facility] [id number] [facility] 2021-12-05 07:37:03 2021-12-05 23:59:00 Hospital Encounter Jayjay Tavarezjamarjermaine Hansen [facility] 1.284.114 350.1.13.10 4.2.7.2.686 [id number] [facility] 2021-10-31 00:00:00 2021-10-31 00:00:00 Outpatient R JAYJAY TAVAREZJAMARJERMAINE [facility] [id number] [facility] 2021-10-22 00:00:00 2021-10-22 00:00:00 Orders Only Doctor Unassigned, Bow [facility] 1.2.114 350.1.13.10 4.2.7.2.686 [id number] [facility] 2021-10-18 00:00:00 2021-10-18 00:00:00 Case Management Jailene Tavarez [facility] [place]?[facility] MED[facility] OFFICE BUILDING 1.2.840.114 350.1.13.10 4.2.7.2.686 [id number] [facility] 2021-10-17 12:15:00 2021-10-17 12:30:00 [employer] Worker Visit Lab, Ang - Db Jailene Tavarez [facility] [place]?[facility] MED[facility] OFFICE BUILDING 1.2.840.114 350.1.13.10 4.2.7.2.686 [id number] [facility] 2021-10-17 11:30:00 2021-10-17 12:17:16 Outpatient R JAILENE TAVAREZ [facility] [id number] [facility] 2021-10-17 11:30:00 2021-10-17 12:17:16 Office Visit Jailene Tavarez [facility] [place] 1..840.114 350.1.13.10 4.2.7.2.686 [id number] 044 [id number] [facility] 2021-10-01 08:15:00 2021-10-01 08:15:00 Outpatient R JAILENE TAVAREZ [facility] [id number] [facility] 2021-08-27 09:30:00 2021-08-27 09:30:00 Outpatient R JAILENE TAVAREZ [facility] [id number] [facility] 2021-08-08 07:41:49 2021-08-08 23:59:00 Outpatient R RADIOLOGY [facility] [id number] [facility] 2021-08-08 07:41:49 2021-08-08 23:59:00 Hospital Encounter Radiology [facility] 1.2.840.114 350.1.13.10 4.2.7.2.686 [id number] [facility] 2021-07-22 00:00:00 2021-07-22 00:00:00 Orders Only Doctor Unassigned, Bow [facility] 1.84.114 350.1.13.10 4.2.7.2.686 [id number] [facility] 2021-07-10 08:30:00 2021-07-10 09:00:00 Office Visit Jailene Tavarez [facility] 1.84114 350.1.13.10 4.2.7.2.686 [id number] [facility] 2021-07-10 00:00:00 2021-07-10 00:00:00 Outpatient R RADIOLOGY [facility] [id number] [facility] 2021-07-03 00:00:00 2021-07-03 00:00:00 Telephone Jailene Tavarez [facility] 1.84.114 350.1.13.10 4.2.7.2.686 [id number] [facility] 2021-07-03 00:00:00 2021-07-03 00:00:00 Refill Jailene Tavarez [facility] 1.84.114 350.1.13.10 4.2.7.2.686 [id number] [id number] [facility] 2021-06-09 00:00:00 2021-06-09 00:00:00 Letter (Out) Chrissie Deshpande [facility] 1.84.114 350.1.13.10 4.2.7.2.686 [id number] [facility] 2021-06-08 09:00:37 2021-06-08 09:18:23 Laboratory Only Only, Ang Db Test Unknown, Attending Almaz Chavez [facility] 1..114 350.1.13.10 4.2.7.2.686 [id number] [facility] 2021-06-08 09:15:00 2021-06-08 09:15:00 Outpatient R UNKNOWN, ATTENDING [facility] [id number] [facility] 2021-05-08 00:00:00 2021-05-08 00:00:00 Patient Outreach Leonardo Huber [facility] 1..114 350.1.13.10 4.2.7.2.686 [id number] [facility] 2021-05-08 00:00:00 2021-05-08 00:00:00 Pre Visit Outreach Jailene Tavarez [facility] 1.114 350.1.13.10 4.2.7.2.686 [id number] [facility] 2021-04-22 15:45:00 2021-04-22 15:45:00 Outpatient R PALOMA DECKER [facility] [id number] [facility] 2021-04-18 09:00:00 2021-04-18 09:00:00 Outpatient R [facility] [id number] [facility] 2021-04-14 00:00:00 2021-04-14 00:00:00 Orders Only Doctor Unassigned, Bow [facility] 1..114 350.1.13.10 4.2.7.2.686 [id number] [id number] [facility] 2021-03-28 13:28:28 2021-03-28 14:25:53 Office Visit Jailene Tavarez [facility] 1..114 350.1.13.10 4.2.7.2.686 [id number] [id number] [facility] 2021-03-28 13:28:28 2021-03-28 14:25:53 Office Visit DaysiJailene mendoza [facility] 1..840.114 350.1.13.10 4.2.7.2.686 [id number] 2021-03-28 14:00:00 2021-03-28 14:00:00 Outpatient R JAYJAY TAVAREZJERMAINE [facility] [id number] [facility] 2020-05-20 00:00:00 2020-05-20 00:00:00 Refill Jailene Tavarez [facility] 1..840.114 350.1.13.10 4.2.7.2.686 [id number] [facility] 2020-04-21 00:00:00 2020-04-21 00:00:00 Orders Only Doctor Unassigned, Bow [facility] 1..840.114 350.1.13.10 4.2.7.2.686 [id number] [facility] 2020-03-25 11:00:00 2020-03-25 11:00:00 Outpatient MARGY SIMMONS [facility] [id number] [facility] 2020-02-13 07:14:33 2020-02-13 22:11:45 Telemedici ne Visit Dolly Tavarezjermaine [facility] 1..840.114 350.1.13.10 4.2.7.2.686 [id number] [facility] 2020-02-13 09:00:00 2020-02-13 09:00:00 Outpatient R JAILENE TAVAREZ [facility] [id number] [facility] 2020-02-06 11:15:00 2020-02-06 11:15:00 Outpatient R JAILENE TAVAREZ [facility] [id number] [facility] 2020-02-06 07:41:41 2020-02-06 08:11:41 Telemedici ne Visit Jailene Tavarez [facility] 1.2.840.114 350.1.13.10 4.2.7.2.686 [id number] 044 [id number] [facility] 2020-01-09 00:00:00 2020-01-09 00:00:00 Refill Jailene Tavarez [facility] 1.2840.114 350.1.13.10 4.2.7.2.686 [id number] [facility] 2019-10-17 07:58:00 2019-10-17 23:59:00 Hospital Encounter CbZac [facility] 1.2.840.114 350.1.13.10 4.2.7.2.686 [id number] [facility] 2019-10-05 00:00:00 2019-10-05 00:00:00 Orders Only Doctor Unassigned, Bow [facility] 1.2.840.114 350.1.13.10 4.2.7.2.686 [id number] [facility] 2019-06-12 00:00:00 2019-06-12 00:00:00 Telephone Jailene Tavarez [address] [facility] [address] 1.2.840.114 350.1.13.10 4.2.7.2.686 [id number] [facility] 2019-05-17 00:00:00 2019-05-17 00:00:00 Telephone Margy Greer [facility] 1.2.840.114 350.1.13.10 4.2.7.2.686 [id number] [facility] 2019-05-16 08:15:24 2019-05-16 23:59:00 Hospital Encounter Margy Greer [facility] 1.2840.114 350.1.13.10 4.2.7.2.686 [id number] [facility] 2019-05-09 10:34:56 2019-05-09 11:15:23 Office Visit Jailene Tavarez [facility] 1.2840.114 350.1.13.10 4.2.7.2.686 [id number] [facility] 2018-06-16 09:10:06 2018-06-16 09:09:00 Outpatient R JAILENE TAVAREZ [facility] [id number] [facility] Results Test Description Test Time Test Comments Results Resul t Comments Source REFERRAL- REQUEST/RESPONSE 2024-03-28 14:22:34 Ordered by an unspecified provider. [facility] ([facility])(Total Cholesterol, Triglycerides, HDL)2023-10-29 21:23:41* Test Item Value Reference Range Interpretation Comme nts CHOL (test code = 2590774084) 131 mg/dL 120-200 HDL (test code = 7812836209) 53 mg/dL >=50 HDLC RATIO (test code = 1050772657) 2.5 <=4.5 TRIG (test code = 5985297248) 66 mg/dL 30-170 LDL CHOL (test code = 06083-0) 65 mg/dL <=160 VLDL (test code = 4935623077) 13 mg/dL 5-60 Lab Interpretation (test cod e = 42749-2) Normal [facility] Hem[facility] (A1C)2023-10-29 20:59:33* Test Item Value Reference Range Interpretation Comme nts HGB A1C (test code = 4548-4) 5.9 % 4.0-5.7 H VAMSI (test code = VAMSI) Reference RangesNormal: <5.7%Prediabetes: 5.7 - 6.4%Diabetes: > 6.5% Lab Interpretation (test code = 08369-1) Abnormal [facility] Ur[facility] W Specific [id number] 14:52:00* Test Item Value Reference Range Interpretation Comme nts POCT U SP GRAV (test code = 3255) 1.015 mg/dl 1.005-1.025 POCT PH U (test code = 3254) 5 mg/dl 5-8 POCT U LEUK EST (test code = 3263) trace Negative - Negative POCT U NIT (test code = 3262) neg Negative - Negative POCT U PROT (test code = 3259) trace Negative - Negative POCT U GLU (test code = 3256) normal Negative - Negative POCT U KETONE (test code = 3258) neg Negative - Negative POCT U UROBILI (test code = 3260) normal 0.2-1 POCT U BILI (test code = 3261) neg Negative - Negative POCT U BLD (test code = 3257) trace Negative - Negative POCT U COLOR (test code = 3266) light yellow POCT U APPEAR (test code = 3267) clear [facility] Urinalysis W Specific [id number] 14:52:00* Test Item Value Reference Range Interpretation Comme nts POCT U SP GRAV (test code = 3255) 1.015 mg/dl 1.005-1.025 POCT PH U (test code = 3254) 5 mg/dl 5-8 POCT U LEUK EST (test code = 3263) trace Negative - Negative POCT U NIT (test code = 3262) neg Negative - Negative POCT U PROT (test code = 3259) trace Negative - Negative POCT U GLU (test code = 3256) normal Negative - Negative POCT U KETONE (test code = 3258) neg Negative - Negative POCT U UROBILI (test code = 3260) normal 0.2-1 POCT U BILI (test code = 3261) neg Negative - Negative POCT U BLD (test code = 3257) trace Negative - Negative POCT U COLOR (test code = 3266) light yellow POCT U APPEAR (test code = 3267) clear [facility]. METABOLIC PANEL (42690)2023-01-12 19:58:52* Test Item Value Reference Range Interpretation Comme nts NA (test code = 8793241554) 142 mmol/L 135-145 K (test code = 6363765496) 4.9 mmol/L 3.5-5.0 CL (test code = 0524311793) 105 mmol/L 98-108 CO2 TOTAL (test code = 0236659103) 28 mmol/L 23-31 AGAP (test code = 2060804880) 9 2-16 BUN (test code = 9991952285) 20 mg/dL 7-23 GLUCOSE (test code = 5870169987) 99 mg/dL 70-110 CREATININE (test code = 5264819061) 0.95 mg/dL 0.50-1.04 TOTAL BILI (test code = 0934594739) 0.6 mg/dL 0.1-1.1 CALCIUM (test code = 0815614276) 10.0 mg/dL 8.6-10.6 T PROTEIN (test code = 5518342937) 7.0 g/dL 6.3-8.2 ALBUMIN (test code = 9083317416) 4.6 g/dL 3.5-5.0 ALK PHOS (test code = 9175030835) 101 U/L 34-122 ALTv (test code = 1742-6) 22 U/L 5-35 AST(SGOT) (test code = 1760115734) 24 U/L 13-40 eGFR (test code = 5804109023) 58.0 mL/min/1.73m2 VAMSI (test code = VAMSI) Association of Glomerular Filtration Rate (GFR) and Staging of Kidney Disease* + + +- +| GFR (mL/min/1.73 m2) ?| With Kidney Damage ?| ?Without Kidney Damage+ ------+ ----+ ------+| ?>90 ?| ?Stage one ?| ? Normal ?+ -+ + -+| ?60-89 ?| ?Stage two ?| ? Decreased GFR ? + + +- +| ?30-59 ?| ?Stage three ?| ? Stage three ? + + +- +| ?15-29 ?| ?Stage four ? | ? Stage four ?+ -+ + -+| ?<15 (or dialysis) ? ?| ?Stage five ? | ? Stage five ?+ -+ + -+ *Each stage assumes the associated GFR level has been in effect for at least three months. ?Stages 1 to 5, with or without kidney disease, indicate chronic kidney disease. Notes: Determination of stages one and two (with eGFR >59mL/min/1.73 m2) requires estimation of kidney damage for at least three months as defined by structural or functional abnormalities of the kidney, manifested by either:Pathological abnormalities or Markers of kidney damage (including abnormalities in the composition of the blood or urine or abnormalities in imaging tests). [facility]udaSEDIMENTATION [id number] 19:13:35* Test Item Value Reference Range Interpretation Comme nts ESR (test code = 44102-2) 4 See_Comment [Automated message] The system which generated this result transmitted reference range: 0 - 20 mm/HR. The reference range was not used to interpret this result as normal/abnormal. Lab Interpretation (test code = 92833-9) Normal [facility] WITH [id number] 18:27:12* Test Item Value Reference Range Interpretation Comme nts WBC (test code = 6690-2) 6.69 See_Comment [Automated [employer]] The system which generated this result transmitted reference range: 4.30 - 11.10 10*3/?L. The reference range was not used to interpret this result as normal/abnormal. RBC (test code = 789-8) 4.65 See_Comment [Automated [employer]] The system which generated this result transmitted reference range: 3.93 - 5.25 10*6/?L. The reference range was not used to interpret this result as normal/abnormal. HGB (test code = 718-7) 14.0 g/dL 11.6-15.0 HCT (test code = 4544-3) 42.6 % 35.7-45.2 MCV (test code = 787-2) 91.6 fL 80.6-95.5 MCH (test code = 785-6) 30.1 pg 25.9-32.8 MCHC (test code = 786-4) 32.9 g/dL 31.6-35.1 RDW-SD (test code = 99602-2) 40.9 fL 39.0-49.9 RDW-CV (test code = 788-0) 12.3 % 12.0-15.5 PLT (test code = 777-3) 292 See_Comment [Automated messa ge] The system which generated this result transmitted reference range: 166 - 358 10*3/?L. The reference range was not used to interpret this result as normal/abnormal. MPV (test code = 39548-2) 11.0 fL 9.5-12.9 NRBC/100 WBC (test code = 8928921053) 0.0 See_Comment [Automated me ssage] The system which generated this result transmitted reference range: 0.0 - 10.0 /100 WBCs. The reference range was not used to interpret this result as normal/abnormal. NRBC x10^3 (test code = 5736600453) See_Comment [Automated me ssage] The system which generated this result transmitted reference range: 10*3/?L. The reference range was not used to interpret this result as normal/abnormal. GRAN MAT (NEUT) % (test code = 770-8) 58.9 % IMM GRAN % (test code = 1695602816) 0.30 % LYMPH % (test code = 736-9) 28.3 % MONO % (test code = 5905-5) 9.7 % EOS % (test code = 713-8) 2.2 % BASO % (test code = 706-2) 0.6 % GRAN MAT x10^3(ANC) (test code = 1245880693) 3.94 10*3/uL 1.88-7.09 IMM GRAN x10^3 (test code = 8374187983) 0.00-0.06 LYMPH x10^3 (test code = 731-0) 1.89 10*3/uL 1.32-3.29 MONO x10^3 (test code = 742-7) 0.65 10*3/uL 0.33-0.92 EOS x10^3 (test code = 711-2) 0.15 10*3/uL 0.03-0.39 BASO x10^3 (test code = 704-7) 0.04 10*3/uL 0.01-0.07 [facility] Notes Date/Time Note Provider Source 2024-08-30 09:20:20 Last Refilled: Disp Refills Start End TONI lisinopriL 10 mg tablet 90 tablet 1 07/20/2024 -- No Sig: Take 1 tablet by mouth daily. Sent to pharmacy as: lisinopriL 10 mg tablet (PRINIVIL,ZESTRIL) Class: eRX Route: Oral Order: [id number] Date/Time Signed: 07/20/2024 10:32 E-Prescribing Status: Receipt confirmed by pharmacy (07/20/2024 10:32 AM CDT) Notes: office visit 07/20/24 Essential hypertension Comment: chronic Plan: Cbc with Diff, Comp. Metabolic Panel (40740), Thyroid Stimulating Hormone, Lipid Panel (17775)(Total Cholesterol, Triglycerides, HDL), lisinopriL 10 mg tablet Recent Visits Date Type Provider Dept 07/20/24 Office Visit Kina Thibodeaux FNP [facility] 10/29/23 Office Visit Kina Thibodeaux FNP [facility] Showing recent visits within past 540 days with a meds authorizing provider and meeting all other requirements Future Appointments Date Type Provider Dept 01/22/25 Appointment Kina Thibodeaux FNP [facility] Showing future appointments within next 150 days with a meds authorizing provider and meeting all other requirements [employer] Visit on 07/20/2024 Component Date Value TSH 07/20/2024 0.46 CHOL 07/20/2024 217 (H) HDL 07/20/2024 60 HDLC RATIO 07/20/2024 3.6 TRIG 07/20/2024 118 LDL CHOL 07/20/2024 133 VLDL 07/20/2024 24 HGB A1C 07/20/2024 5.8 (H) Office Visit on 07/20/2024 Component Date Value WBC 07/20/2024 7.29 RBC 07/20/2024 4.62 HGB 07/20/2024 14.8 HCT 07/20/2024 44.7 MCV 07/20/2024 96.8 (H) MCH 07/20/2024 32.0 MCHC 07/20/2024 33.1 RDW-SD 07/20/2024 42.8 RDW-CV 07/20/2024 12.0 PLT 07/20/2024 278 MPV 07/20/2024 11.3 NRBC/100 WBC 07/20/2024 0.0 NRBC x10 3 07/20/2024 <0.01 GRAN MAT (NEUT) % 07/20/2024 65.9 IMM GRAN % 07/20/2024 0.30 LYMPH % 07/20/2024 23.5 MONO % 07/20/2024 8.8 EOS % 07/20/2024 1.0 BASO % 07/20/2024 0.5 GRAN MAT x10 3 (ANC) 07/20/2024 4.81 IMM GRAN x10 3 07/20/2024 <0.03 LYMPH x10 3 07/20/2024 1.71 MONO x10 3 07/20/2024 0.64 EOS x10 3 07/20/2024 0.07 BASO x10 3 07/20/2024 0.04 NA 07/20/2024 137 K 07/20/2024 5.1 (H) CL 07/20/2024 104 CO2 TOTAL 07/20/2024 26 AGAP 07/20/2024 7 BUN 07/20/2024 17 GLUCOSE 07/20/2024 103 CREATININE 07/20/2024 0.98 TOTAL BILI 07/20/2024 0.6 CALCIUM 07/20/2024 10.1 T PROTEIN 07/20/2024 6.9 ALBUMIN 07/20/2024 4.4 ALK PHOS 07/20/2024 103 ALTv 07/20/2024 16 AST(SGOT) 07/20/2024 24 eGFR 07/20/2024 61.1 [employer] Visit on 10/29/2023 Component Date Value TSH 10/29/2023 1.53 CHOL 10/29/2023 131 HDL 10/29/2023 53 HDLC RATIO 10/29/2023 2.5 TRIG 10/29/2023 66 LDL CHOL 10/29/2023 65 VLDL 10/29/2023 13 HGB A1C 10/29/2023 5.9 (H) Office Visit on 10/29/2023 Component Date Value WBC 10/29/2023 6.41 RBC 10/29/2023 4.58 HGB 10/29/2023 14.5 HCT 10/29/2023 44.0 MCV 10/29/2023 96.1 (H) MCH 10/29/2023 31.7 MCHC 10/29/2023 33.0 RDW-SD 10/29/2023 43.5 RDW-CV 10/29/2023 12.3 PLT 10/29/2023 266 MPV 10/29/2023 11.2 NRBC/100 WBC 10/29/2023 0.0 NRBC x10 3 10/29/2023 <0.01 GRAN MAT (NEUT) % 10/29/2023 59.9 IMM GRAN % 10/29/2023 0.20 LYMPH % 10/29/2023 28.1 MONO % 10/29/2023 9.5 EOS % 10/29/2023 1.7 BASO % 10/29/2023 0.6 GRAN MAT x10 3 (ANC) 10/29/2023 3.84 IMM GRAN x10 3 10/29/2023 <0.03 LYMPH x10 3 10/29/2023 1.80 MONO x10 3 10/29/2023 0.61 EOS x10 3 10/29/2023 0.11 BASO x10 3 10/29/2023 0.04 NA 10/29/2023 140 K 10/29/2023 4.6 CL 10/29/2023 108 CO2 TOTAL 10/29/2023 23 AGAP 10/29/2023 9 BUN 10/29/2023 27 (H) GLUCOSE 10/29/2023 98 CREATININE 10/29/2023 0.97 TOTAL BILI 10/29/2023 0.5 CALCIUM 10/29/2023 9.8 T PROTEIN 10/29/2023 6.8 ALBUMIN 10/29/2023 4.4 ALK PHOS 10/29/2023 105 ALTv 10/29/2023 14 AST(SGOT) 10/29/2023 24 eGFR 10/29/2023 62.2 POCT U SP GRAV 10/29/2023 1.015 POCT PH U 10/29/2023 5 POCT U LEUK EST 10/29/2023 trace POCT U NIT 10/29/2023 neg POCT U PROT 10/29/2023 trace POCT U GLU 10/29/2023 normal POCT U KETONE 10/29/2023 neg POCT U UROBILI 10/29/2023 normal POCT U BILI 10/29/2023 neg POCT U BLD 10/29/2023 trace POCT U COLOR 10/29/2023 light yellow POCT U APPEAR 10/29/2023 clear [facility] 2024-08-29 10:58:44 Patient is calling, requesting a refill on lisinopriL 10 mg tablet . Patient is currently down to last pill. Please advise. [facility] [phone] [place] [id number] [facility] 2024-07-20 12:30:00 Images from the original note were not included. Venipuncture collection performed by clean technique on the left anticubitus. Total of 1 attempts were made. Slight pressure and a bandage/dressing were applied to the site(s). The patient experienced no complications. The following specimens were processed according to instructions and sent to [facility] laboratories per lab order on 07/20/2024 : LT BLUE SST 1 RED LAV 2 PPT DK GREEN (LiHep) DK GREEN (SodH) YOUSIF DK BLUE (K2) DK BLUE (S) ACD Blood Culture NIPT/NTD [facility] 2024-07-05 11:45:44 Images from the original note were not included. Notes: MUST BE SEEN FOR FURTHER REFILLS Last Refilled: atorvastatin 10 mg tablet Sig: Take 1 tablet by mouth at bedtime. Disp: 90 tablet Refills: 1 Start: 07/05/2024 Class: eRX Non-formulary For: Hypercholesterolemia Last ordered: 8 months ago (10/29/2023) by TIGIST Ocampo Cardiovascular: Antilipid - HMG-CoA Reductase Inhibitors Hiridm4507/05/2024 11:38 AM Protocol Details Valid encounter within last 12 months Total Cholesterol within 360 days LDL within 360 days HDL within 360 days Triglycerides within 360 days AST in normal range and within 360 days ALT in normal range and within 360 days To be filled at: [facility] [id number] BELCHER [facility] [address] Recent Visits Date Type Provider Dept 10/29/23 Office Visit Kina Thibodeaux FNP [facility] 01/12/23 Office Visit Kina Thibodeaux FNP [facility] Showing recent visits within past 540 days with a meds authorizing provider and meeting all other requirements Future Appointments Date Type Provider Dept 07/20/24 Appointment Kina Thibodeaux FNP [facility] Showing future appointments within next 150 days with a meds authorizing provider and meeting all other requirements [facility] 2024-06-02 17:01:13 Images from the original note were not included. lisinopriL 10 mg tablet Possible duplicate: Hover to review recent actions on this medication Sig: Take 1 tablet by mouth daily. Disp: 90 tablet Refills: 0 Start: 06/02/2024 Class: eRX For: Essential hypertension Last ordered: 3 days ago (05/30/2024) by TIGIST Ocampo Cardiovascular: CALLIE Inhibitors Jyktxx9606/02/2024 01:14 PM Protocol Details Valid encounter within last 12 months K in normal range and within 360 days Cr in normal range and within 360 days To be filled at: [facility] [id number] BELCHER [facility] [address] 30 day supply sent Recent Visits Date Type Provider Dept 10/29/23 Office Visit Kina Thibodeaux FNP [facility] 01/12/23 Office Visit Kina Thibodeaux FNP [facility] Showing recent visits within past 540 days with a meds authorizing provider and meeting all other requirements Future Appointments Date Type Provider Dept 07/20/24 Appointment Kina Thibodeaux FNP [facility] Showing future appointments within next 150 days with a meds authorizing provider and meeting all other requirements Natacha Womack MA [facility] 2024-05-30 10:34:57 Images from the original note were not included. Notes: 10/29/23 Last Refilled: [facility] [id number] [address] Recent Visits Date Type Provider Dept 10/29/23 Office Visit Kina Thibodeaux FNP [facility] 01/12/23 Office Visit Kina Thibodeaux FNP [facility] Showing recent visits within past 540 days with a meds authorizing provider and meeting all other requirements Future Appointments No visits were found meeting these conditions. Showing future appointments within next 150 days with a meds authorizing provider and meeting all other requirements lisinopriL 10 mg tablet Sig: Take 1 tablet by mouth daily. Disp: 90 tablet Refills: 1 Start: 05/30/2024 Class: eRX Non-formulary For: Essential hypertension Last ordered: 7 months ago (10/29/2023) by TIGIST Ocampo Cardiovascular: CALLIE Inhibitors Rcullr5705/30/2024 09:21 AM Protocol Details Valid encounter within last 12 months K in normal range and within 360 days Cr in normal range and within 360 days To be filled at: [facility] [id number] [address] Pinky Huynh MA [facility] 2024-01-18 09:43:12 Medical record release form for lab reults received from your Gi center. This will be in the [facility] med fax folder from date 01/17/24 with the file name "[email or web address]" José Miguel Gotti [facility] 2023-10-29 09:15:00 Images from the original note were not included. Venipuncture collection performed by clean technique on the left anticubitus. Total of 1 attempts were made. Slight pressure and a bandage/dressing were applied to the site(s). The patient experienced no complications. The following specimens were processed according to instructions and sent to [facility] laboratories per lab order on 10/29/2023: LT BLUE SST 1 RED LAV 2 PPT DK GREEN (LiHep) DK GREEN (SodH) YOUSIF DK BLUE (K2) DK BLUE (S) ACD Blood Culture NIPT/NTD [facility] 2023-09-22 15:36:48 Recent Visits Date Type Provider Dept 01/12/23 Office Visit Kina Thibodeaux FNP [facility] 08/31/22 Office Visit Donnie Renteria FNP [facility] 04/21/22 Office Visit Kina Thibodeaux FNP [facility] Showing recent visits within past 540 days with a meds authorizing provider and meeting all other requirements Future Appointments No visits were found meeting these conditions. Showing future appointments within next 150 days with a meds authorizing provider and meeting all other requirements [facility] 2023-09-21 13:38:35 Images from the original note were not included. lisinopriL 10 mg tablet Sig: Take 1 tablet by mouth daily. Disp: 90 tablet Refills: 1 Start: 09/21/2023 Class: eRX Non-formulary For: Essential hypertension Last ordered: 8 months ago (01/12/2023) by TIGIST Ocampo Cardiovascular: CALLIE Inhibitors [id number]/21/2023 01:00 PM Protocol Details Valid encounter within last 12 months K in normal range and within 360 days Cr in normal range and within 360 days Recent Visits Date Type Provider Dept 01/12/23 Office Visit Kina Thibodeaux FNP [facility] 08/31/22 Office Visit Dexter DonnieTIGIST [facility] 04/21/22 Office Visit Kina Thibodeaux FNP [facility] Showing recent visits within past 540 days with a meds authorizing provider and meeting all other requirements Future Appointments No visits were found meeting these conditions. Showing future appointments within next 150 days with a meds authorizing provider and meeting all other requirements E[employer]IONAL APPLICATION DESIGNER Natacha Womack MA [facility] 2023-09-21 11:38:05 Upon reviewing pts chart, pt was to come in for fu in jun. I called pt to schedule her an appt but no ans. I also wanted more information as to if she had enough to last her, or if she needed a rf till she could come in. Pt did not ans. I did lvm to return clinics call. Ester Moore MA 09/21/2023 11:46 AM ESSIONAL APPLICATION DESIGNER Ester Moore MA [facility] 2023-09-21 10:38:55 Pt requesting refills on BP and stress medications, unsure of what the stress medication is called, requesting call back from clinic. Please F/u lisinopriL 10 mg tablet [facility] [id number] [place] [address] ELA Marshall [facility] 2023-05-07 13:58:24 Formatting of this n ote is different from the original. Order History 8 weeks ago (03/12/2023) topiramate (TOPAMAX) 25 mg tablet Take 1 tablet by mouth daily. Dispense: 30 tablet Refills: 1 Start: 03/12/2023 Recent Visits Date Type Provider Dept 01/12/23 Office Visit Anene, Kina, SALES DESIGNER [facility] 08/31/22 Office Visit Donnie Renteria, SALES DESIGNER [facility] 04/21/22 Office Visit Kina Thibodeaux, [facility] Showing recent visits within past 540 days with a meds authorizing provider and meeting all other requirements Future Appointments No visits were found meeting these conditions. Showing future appointments within next 150 days with a meds authorizing provider and meeting all other requirements Lorrie Perez LVN [facility]
--- NOTE | 2024-12-08 22:03 | RAD REPORT ---
EXAMINATION: ONE VIEW CHEST XR CLINICAL INDICATION: Female, 74 years old.,left jaw/shoulder pain TECHNIQUE: Frontal chest projection is submitted. Examination is limited by patient positioning and t echnique. COMPARISON: 07/02/2022 chest x-ray and 09/30/2022 CT FINDINGS: The lungs are well inflated and clear apart from left basilar atelectasis, with elevation of the left hemidiaphragm. No pneumothorax or sizable effusion. The heart is normal in size. Mediastinal contours are unremarkable. IMPRESSION: No acute intrathoracic abnormalities.
[2024-12-08 22:09] LABS: Absolute Basophils 0.1 K/uL (0-0.5); Absolute Eosinophils 0.4 K/uL (0-0.5); Absolute Lymphocytes (CBC) 2.4 K/uL (0.7-4.9); Absolute Monocytes 0.6 K/uL (0.1-1.3); Basophils % 1.2 % (0-1.3); Eosinophils % 5.2 % (0-4.4); Hematocrit 42.9 % (36.0-45.0); Hemoglobin 14.7 g/dL (12.0-15.0); Lymphocytes % 27.9 % (15.3-44.8); MCHC 34.2 g/dL (32.0-36.0); MCV 93.5 fL (80-100); MPV 8.6 fL (7.6-11.3); Monocytes % 7.5 % (3.3-12.3); Neutrophils % 58.2 % (41.7-73.7); Nucleated Red Blood Cells % 0.1 % (0-0); Platelets 258 thou/uL (152-406); RBC Red Blood Cell Count 4.59 M/uL (3.86-4.86); Red Cell Distribution Width 12.7 % (12.1-15.2)
[2024-12-08] MEDS ORDERED: ONDANSETRON 4 MG/2 ML VIAL ONE (22:16)
[2024-12-08] MEDS ORDERED: MORPHINE 2 MG/ML SYR ONE (22:16)
[2024-12-08 22:28] LABS: ALT/SGPT 21 U/L (13-56); AST/SGOT 18 U/L (15-37); Albumin/Globulin Ratio 1.3 (1.1-1.8); Alkaline Phosphatase 112 U/L (45-117); Anion Gap 7.1 mEq/L (5.0-15.0); BUN Blood Urea Nitrogen 18 mg/dL (7-18); Bicarbonate 27 mEq/L (21-32); Bilirubin Total 0.4 mg/dL (0.2-1.0); Globulin 3.1 g/dL (2.3-3.5); Glomerular Filtration Rate 52 ml/min (=/>90); Glucose Level 110 mg/dL (74-106); Magnesium 2.4 mg/dL (1.6-2.4); Potassium 4.1 mEq/L (3.5-5.1); Protein, Total 7.1 g/dL (6.4-8.2); Sodium Level 138 mEq/L (136-145)
[2024-12-08 22:32] LABS: Bilirubin Direct < 0.2 mg/dL (0-0.2); Bilirubin Indirect, Calculated 0.2 mg/dL (0.2-0.8); Troponin High Sensitivity < 3.0 pg/mL (<58.9)
--- NOTE | 2024-12-08 23:21 | RAD REPORT ---
EXAM: CT Neck With Intravenous Contrast CLINICAL HISTORY: SWELLING TECHNIQUE: Axial computed tomography images of the neck with intravenous contrast. Sagittal and coronal reform atted images were created and reviewed. This CT exam was performed using one or more of the following dose reduction techniques: automated exposure control, adjustment of the mA and/or kV acc ording to patient size, and/or use of iterative reconstruction technique. COMPARISON: No relevant prior studies available. FINDINGS: Oropharynx: Unremarkable. No significant tonsillar enlargement. No peritonsillar abscess. Hypopharynx: Unremarkable. Larynx: Unremarkable. Normal epiglottis. Trachea: Unremarkable. Retropharyngeal space: Unremarkable. Submandibular/parotid glands: The left parotid gland is mildly asymmetrically enlarged and indistin ct. Surrounding infiltrative changes and platysma thickening. There is mild prominence and hyperemia of Stensen's duct on the left. No demonstrable calculi along the course of the duct. Thyroid: Unremarkable. No enlarged or calcified nodules. Bones/joints: Multilevel spondylosis. No acute fracture. Soft tissues: Unremarkable. Vasculature: No acute findings. Lymph nodes: Unremarkable. No lymphadenopathy. Lung apices: Unremarkable as visualized. IMPRESSION: Findings suggestive of left-sided parotitis. There is mild prominence and hyperemia of Stensen's duct on the left. No demonstrable calculi along the course of the duct. Electronically signed by: Juana Morris MD 12/08/2024 11:17 PM CDT Due to temporary technical issues with the PACS/epacube reporting system, reports are being ricardo d by the in-house radiologist without review as a courtesy to ensure prompt reporting the interpreting radiologist is fully responsible for the content of the report. Transcribed Date/Time: 12/08/2024 11:20 PM
[2024-12-09] MEDS ORDERED: CLINDAMYCIN 600MG/D5W 50 ML IV ONE (00:40)
--- NOTE | 2024-12-09 00:52 | ER ---
Nurse's Notes [facility] Name: Kelley Zapien Age: 74 yrs Sex: Female : 1950 Arrival Date: 12/08/2024 Time: 19:01 Bed 14 Private MD: Diagnosis: Left Side Parotitis;Cervicalgia;Chest pain, unspecified Presentation: 12/08 19:21 Chief complaint: Patient states: noticed left facial swelling with some discomfort in me1 left face radiating down left neck to left shoulder. Denies fever. Coronavirus screen: At this time, the client does not indicate any symptoms associated with coronavirus-19. Ebola Screen: No symptoms or risks identified at this time. Initial Sepsis Screen: Does the patient meet any 2 criteria? No. Patient's initial sepsis screen is negative. Does the patient have a suspected source of infection? No. Patient's initial sepsis screen is negative. Risk Assessment: Do you want to hurt yourself or someone else? Patient reports no desire to harm self or others. Onset of symptoms was December 07, 2024. 19:21 Method Of Arrival: Ambulatory [facility] 19:21 Acuity: CHARLIE 3 ak1 Triage Assessment: 19:23 General: Appears uncomfortable, well groomed, well developed, well nourished, Behavior me1 is calm, cooperative, appropriate for age, Reports left facial swelling with discomfort to left face radiating down left neck to left shoulder. Pain: Complains of pain in left jaw Pain radiates to left sternocleidomastoid and left shoulder. EENT: left facial swelling. Neuro: Level of Consciousness is awake, alert, obeys commands, Oriented to person, place, time, situation, Appropriate for age. Cardiovascular: Patient's skin is warm and dry. Respiratory: Airway is patent Respiratory effort is even, unlabored, Respiratory pattern is regular, symmetrical. GI: No signs and/or symptoms were reported involving the gastrointestinal system. : No signs and/or symptoms were reported regarding the genitourinary system. Derm:. Derm: Skin is intact, is healthy with good turgor, Skin is pink, warm \T\ dry. 19:23 Musculoskeletal: Swelling present in left sternocleidomastoid. ak1 Historical: - Allergies: 19:23 No Known Allergies; me1 - PMHx: 19:23 Hypertension; one kidney; me1 - PSHx: 19:23 section; me1 - Immunization history:: Adult Immunizations up to date. - Infectious Disease History:: Denies. - Social history:: Smoking status: Patient/guardian denies using tobacco, but has a distant history of tobacco abuse. Screenin:00 [facility] ED Fall Risk Assessment (Adult) History of falling in the last 3 months, kj2 including since admission No falls in past 3 months (0 pts) Confusion or Disorientation No (0 pts) Intoxicated or Sedated No (0 pts) Impaired Gait No (0 pts) Mobility Assist Device Used No (0 pt) Altered Elimination No (0 pt) Score/Fall Risk Level 0 - 2 = Low Risk Maintained a safe environment, Hourly rounding (assess needs \T\ fall precautionary measures) done. Abuse screen: Denies threats or abuse. Denies injuries from another. Nutritional screening: No deficits noted. Tuberculosis screening: No symptoms or risk factors identified. Assessment: 22:00 General: Appears in no apparent distress. Behavior is calm, cooperative. Pain: Denies kj2 pain. Neuro: Level of Consciousness is awake, alert, obeys commands, Oriented to person, place, time, situation. Cardiovascular: Patient's skin is warm and dry. Respiratory: Airway is patent Respiratory effort is even, unlabored. GI: No signs and/or symptoms were reported involving the gastrointestinal system. : No signs and/or symptoms were reported regarding the genitourinary system. 23:00 Reassessment: Patient appears in no apparent distress at this time. Patient and/or kj2 family updated on plan of care and expected duration. Pain level reassessed. Patient is alert, oriented x 3, equal unlabored respirations, skin warm/dry/pink. Vital Signs: 19:21 BP 135 / 87; Pulse 96; Resp 16; Temp 98.4; Pulse Ox 96% ; Weight 56.25 kg; Height 4 ft. me1 11 in. ; Pain 5/10; 22:00 BP 120 / 75; Pulse 71; Resp 20; Pulse Ox 100% ; kj2 23:00 BP 130 / 91; Pulse 72; Resp 18; Pulse Ox 96% on R/A; kj2 19:21 Body Mass Index 25.04 (56.25 kg, 149.86 cm) me1 19:21 Pain Scale: Adult me1 ED Course: 19:03 Patient arrived in ED. al6 19:23 Triage completed. me1 19:23 Arm band placed on Patient placed in an exam room. me1 19:57 Oleg Gustafson PA is PHCP. cp 19:57 Kameron Gaming MD is Attending Physician. cp 20:53 XRAY Chest (1 view) In Process Unspecified. EDMS 21:44 Radiology exam delayed due to lab results not completed at this time. IV insertion nj attempt and/or patient not having appropriate IV at this time. 22:03 Initial lab(s) drawn, by ak, sent to lab. Inserted saline lock: 22 gauge in left [facility] antecubital area, using aseptic technique. 22:04 Basic Metabolic Panel Sent. me1 22:04 CBC with Diff Sent. me1 22:04 LFT's Sent. me1 22:04 Magnesium Sent. me1 22:04 Troponin HS Sent. me1 22:06 Caro Falk RN is Primary Nurse. kj2 22:18 EKG done, by sewing techniques demonstrator. rg5 22:24 Patient has correct armband on for positive identification. Bed in low position. Call kj2 light in reach. Adult w/ patient. Provided Education on: call light. 22:45 CT Soft Tissue Neck W/contr In Process Unspecified. EDMS 23:32 Sam Winston MD is Attending Physician. cp 23:36 No provider procedures requiring assistance completed. kj2 12/09 00:33 Report given to LARRY Ocampo. kj2 00:51 Lyssa Maradiaga MD is Referral Physician. cp 01:28 IV discontinued, bleeding controlled, No redness/swelling at site. Pressure dressing rg5 applied. Administered Medications: 12/08 22:21 Drug: morphine IVP or IV 2 mg IVP once over 4 mins Route: IVP; Infused Over: 4 mins; kj2 Site: left antecubital; 12/09 00:16 Follow up: Response: No adverse reaction kj2 12/08 22:21 Drug: Ondansetron IVP 4 mg IVP once; over 2 minutes Route: IVP; Site: left antecubital; kj2 12/09 00:16 Follow up: Response: No adverse reaction kj2 00:50 Drug: Clindamycin IVPB 600 mg IVPB once over 30 mins; (mix in 50 mL) Route: IVPB; rg5 Infused Over: 30 mins; Site: left antecubital; 01:15 Follow up: IV Status: Completed infusion; IV Intake: 50ml rg5 Medication: 12/08 23:36 VIS not applicable for this client. kj2 Intake: 12/09 01:15 IV: 50ml; Total: 50ml. rg5 Outcome: 00:51 Discharge ordered by MD. chris 01:27 Discharged to home ambulatory, rg5 01:27 Condition: stable 01:27 Discharge instructions given to patient, family, Instructed on discharge instructions, follow up and referral plans. Demonstrated understanding of instructions, follow-up care, medications, Prescriptions given X 2, 01:28 Patient left the ED. rg5 Signatures: Dispatcher [employer] EDMS Oleg Gustafson PA PA cp Jordan, Nathan nj Eddleman, Michelle, RN RN me1 Mitul Gabriel RN RN rg5 Caro Falk RN RN kj2 Margaret Ha6 Corrections: (The following items were deleted from the chart) 12/08 19:24 19:23 PSHx: None; me1 me1 19:26 19:23 Musculoskeletal: No signs and/or symptoms reported regarding the musculoskeletal me1 system. me1
--- NOTE | 2024-12-09 00:52 | EDPHYS ---
Physician Documentation [facility] Name: Kelley Zapien Age: 74 yrs Sex: Female : 1950 Arrival Date: 12/08/2024 Time: 19:01 Bed 14 Private MD: ED Physician Sam Winston HPI: 12/08 20:10 This 74 yrs old Female presents to ER via Ambulatory with complaints of Facial cp Swelling. 20:10 The patient or guardian reports pain, swelling, tenderness. The complaints affect the cp left cheek. Onset: The symptoms/episode began/occurred this morning. 20:10 Associated signs and symptoms: Pertinent positives: left side neck and jaw and shoulder cp pain, Pertinent negatives: headache, shortness of breath, vomiting, fever, injury, dental pain, sore throat. Severity of symptoms: in the emergency department the symptoms are unchanged, despite home interventions. Historical: - Allergies: 19:23 No Known Allergies; me1 - PMHx: 19:23 Hypertension; one kidney; me1 - PSHx: 19:23 section; me1 - Immunization history:: Adult Immunizations up to date. - Infectious Disease History:: Denies. - Social history:: Smoking status: Patient/guardian denies using tobacco, but has a distant history of tobacco abuse. ROS: 20:15 Constitutional: Negative for body aches, chills, fever, poor PO intake, cp 20:15 Eyes: Negative for injury, pain, redness, and discharge, cp 20:15 ENT: Positive for left side jaw pain, Negative for drainage from ear(s), ear pain, dental pain, difficulty swallowing, difficulty handling secretions, 20:15 Neck: Positive for pain at rest, of the left side of neck, Negative for injury or acute deformity, stiffness, 20:15 Cardiovascular: Positive for chest pain, of the left side of chest, Negative for edema, palpitations, 20:15 Respiratory: Negative for cough, shortness of breath, wheezing, 20:15 Abdomen/GI: Negative for abdominal pain, vomiting, diarrhea, constipation, 20:15 Skin: Negative for cellulitis, rash, 20:15 All other systems are negative, Exam: 20:20 Constitutional: The patient appears in no acute distress, alert, awake, cp non-diaphoretic, non-toxic, well developed, well nourished, uncomfortable, 20:20 Head/face: Noted is swelling, that is mild, of the left cheek, tenderness, that is cp mild, of the left cheek, Sinus tenderness, is not appreciated, 20:20 Eyes: Periorbital structures: appear normal, Conjunctiva: normal, no exudate, no injection, Sclera: no appreciated abnormality, Lids and lashes: appear normal, bilaterally, 20:20 ENT: External ear(s): are unremarkable, Ear canal(s): are normal, clear, TM's: dullness, bilaterally, Nose: is normal, Mouth: Lips: moist, Oral mucosa: moist, Gums: normal with healthy appearance, abscess, is not appreciated, Posterior pharynx: Airway: no evidence of obstruction, patent, Voice: is normal, 20:20 Neck: ROM/movement: is normal, is supple, mild tenderness noted left lateral neck, 20:20 Chest/axilla: Inspection: normal, 20:20 Cardiovascular: Rate: normal, Rhythm: regular, Edema: is not appreciated, JVD: is not appreciated, 20:20 Respiratory: the patient does not display signs of respiratory distress, Respirations: normal, no use of accessory muscles, no retractions, labored breathing, is not present, Breath sounds: are clear throughout, no decreased breath sounds, no stridor, no wheezing, 20:20 Abdomen/GI: Exam negative for discomfort, distension, guarding, Inspection: abdomen appears normal, 20:20 Back: pain, is absent, ROM is normal, 20:20 Skin: cellulitis, is not appreciated, no rash present. 20:20 Neuro: Orientation: to person, place \T\ time. Mentation: is normal, Motor: moves all fours, strength is normal, Sensation: no obvious gross deficits, 22:18 ECG was reviewed by the Attending Physician. cp Vital Signs: 19:21 BP 135 / 87; Pulse 96; Resp 16; Temp 98.4; Pulse Ox 96% ; Weight 56.25 kg; Height 4 ft. me1 11 in. ; Pain 5/10; 22:00 BP 120 / 75; Pulse 71; Resp 20; Pulse Ox 100% ; kj2 23:00 BP 130 / 91; Pulse 72; Resp 18; Pulse Ox 96% on R/A; kj2 19:21 Body Mass Index 25.04 (56.25 kg, 149.86 cm) me1 19:21 Pain Scale: Adult me1 MDM: 19:57 Medical Screening Exam initiated cp 12/09 00:50 Data reviewed: vital signs, nurses notes, lab test result(s), EKG, radiologic studies, cp CT scan, plain films, I have discussed the patient's presentation/case with the attending Emergency Department Physician; and as a result, I will discharge patient. 00:50 Differential diagnosis: Hematoma on parotitis, cellulitis, dental abscess, viral mumps. cp I considered the following discharge prescriptions or medication management in the emergency department Medications were administered in the Emergency Department. See MAR. Care significantly affected by the following chronic conditions: Hypertension. Counseling: I had a detailed discussion with the patient and/or guardian regarding the historical points, exam findings, and any diagnostic results supporting the discharge/admit diagnosis, lab results, radiology results, the need for outpatient follow up, an ENT specialist, to return to the emergency department if symptoms worsen or persist or if there are any questions or concerns that arise at home. Response to treatment: the patient's symptoms have mildly improved after treatment, and as a result, I will discharge patient. 12/08 20:06 Order name: Basic Metabolic Panel; Complete Time: 23:32 cp 12/08 23:33 Interpretation: Normal except: CL 108; GLUC 110; CRE 1.11; GFR 52. 12/08 20:06 Order name: CBC with Diff; Complete Time: 22:18 12/08 22:18 Interpretation: Normal except: EOSINOPHIL % 5.2. 12/08 20:06 Order name: LFT's; Complete Time: 23:32 12/08 23:33 Interpretation: Reviewed. 12/08 20:06 Order name: Magnesium; Complete Time: 23:32 cp 12/08 20:06 Order name: Troponin HS; Complete Time: 23:32 cp 12/08 23:58 Order name: Misc. Lab Test 12/08 20:06 Order name: XRAY Chest (1 view); Complete Time: 22:18 cp 12/08 20:06 Order name: CT Soft Tissue Neck W/contr cp 12/08 20:06 Order name: EKG; Complete Time: 20:07 cp 12/08 20:06 Order name: Cardiac monitoring; Complete Time: 22:18 cp 12/08 20:06 Order name: EKG - Nurse/Tech; Complete Time: 22:18 cp 12/08 20:06 Order name: IV Saline Lock; Complete Time: 22:04 cp 12/08 20:06 Order name: Labs collected and sent; Complete Time: 22:04 cp 12/08 20:06 Order name: O2 Per Protocol; Complete Time: :18 cp 12/08 20:06 Order name: O2 Sat Monitoring; Complete Time: :18 cp EC/14 22:18 Rate is 69 beats/min. Rhythm is regular. NM interval is normal. QRS interval is normal. cp QT interval is normal. T waves are Inverted in lead aVR. Interpreted by me. Reviewed by me. Administered Medications: 22:21 Drug: morphine IVP or IV 2 mg IVP once over 4 mins Route: IVP; Infused Over: 4 mins; kj2 Site: left antecubital; 12/09 00:16 Follow up: Response: No adverse reaction kj2 12/08 22:21 Drug: Ondansetron IVP 4 mg IVP once; over 2 minutes Route: IVP; Site: left antecubital; kj2 12/09 00:16 Follow up: Response: No adverse reaction kj2 00:50 Drug: Clindamycin IVPB 600 mg IVPB once over 30 mins; (mix in 50 mL) Route: IVPB; rg5 Infused Over: 30 mins; Site: left antecubital; 01:15 Follow up: IV Status: Completed infusion; IV Intake: 50ml rg5 Disposition: 12/10 01:06 Chart complete. cp Disposition Summary: 12/09/24 00:51 Discharge Ordered Notes: Location: Home cp Problem: new cp Symptoms: have improved cp Condition: Stable cp Diagnosis - Left Side Parotitis cp - Cervicalgia cp - Chest pain, unspecified cp Followup: cp - With: Lyssa Maradiaga MD - When: 1 week - Reason: Recheck today's complaints Discharge Instructions: - Discharge Summary Sheet cp - Nonspecific Chest Pain, Adult cp - Mumps, Pediatric cp - Parotitis cp - Aspirin and Your Heart cp Forms: - Medication Reconciliation Form cp - Antibiotic Education cp - Prescription Opioid Use cp - Patient Portal Instructions cp - Leadership Thank You Letter cp Prescriptions: - Celebrex 100 mg Oral Capsule - take 1 tablet ORAL route once daily As needed take with food; 20 capsule; cp Refills: 0, Product Selection Permitted - Clindamycin HCl 300 mg Oral Capsule - take 1 capsule ORAL route every 6 hours for 10 days; 40 capsule; Refills: 0, cp Product Selection Permitted Addendum: 12/11/2024 03:37 I was immediately available for consultation during this patient's visit. I did not e c2 personally see the patient or discuss the patient with the PAO. . Signatures: Dispatcher [employer] EDMS Oleg Gustafson PA PA cp Chuyita Mcginnis, RN RN me1 Sam Winston MD MD ec2 Mitul Gabriel, LARRY RN rg5 Caro Falk RN RN kj2 Corrections: (The following items were deleted from the chart) 12/08 19:24 19:23 PSHx: None; me1 me1 20:07 20:06 BASIC METABOLIC PANEL+C.LAB.BRZ ordered. EDMS EDMS 20:07 20:07 CBC+H.LAB.BRZ ordered. EDMS EDMS 20:07 20:07 HEPATIC FUNCTION+C.LAB.BRZ ordered. EDMS EDMS 20:07 20:07 MAGNESIUM+C.LAB.BRZ ordered. EDMS EDMS 20:07 20:07 Troponin High Sensitivity+C.LAB.BRZ ordered. EDMS EDMS 20:07 20:07 Soft Tissue Neck W/Contr+CT.RAD.BRZ ordered. EDMS EDMS
[2024-12-09 01:33] VITALS: TEMP 98.4
[2024-12-09 01:35] VITALS: BP 130/91; O2SAT 96
== END 2024-12-09 01:28 | disposition home or self-care (01) ==
LOC: ER 19:01
DX: K11.20 Sialoadenitis, unspecified (principal); M54.2 Cervicalgia; R07.9 Chest pain, unspecified
CPT/HCPCS: 96365; 93005; 85025; 80048; 36415; 83735; 80076; 84484; 70491; 71045; 96375; 99284; Q9967; J2270; J2405